=== PATIENT | male | born 1950 | race Two or more races ===

== ENCOUNTER 2018-12-27 10:31 | Emergency (ER) | payer MEDICARE, OTHER ==
[~2018-12-27] VITALS: Ht 167.6 cm; Wt 72.6 kg
--- NOTE | 2018-12-27 10:36 | NUR ---
CAME IN FOR NOT ABLE TO URINATE SINCE SATURDAY, DIALYSIS PATIENT EVERY SAT/HARPER/SAT. NOTED W HILARIO AV SHUNT. TO ER BED 9, HOOKED TO MONITOR, CHANGED TO GOWN, PROVIDED W WARM BLANKET, AWAITING MD GARCIA
--- NOTE | 2018-12-27 10:48 | NUR ---
DIALYSIS PT. (T,TH,S)
--- NOTE | 2018-12-27 10:50 | NUR ---
DR MENSAH AT BEDSIDE
[2018-12-27] MEDS ORDERED: LIDOCAINE 2% JEL UROJET 10 ML MM ONE ×2 (11:00→11:04)
[2018-12-27 11:17] LABS: HEMOGLOBIN 13.6 g/dL (13.5-17.5)
[2018-12-27 11:22] LABS: BASOPHILS # (AUTO) 0.1 /CMM (0.0-0.2); BASOPHILS % (AUTO) 0.7 % (0.0-2.0); EOSINOPHILS % (AUTO) 1.1 % (0.0-6.0); HEMATOCRIT 40 % (39-51); LYMPHOCYTES # (AUTO) 2.5 /CMM (0.8-4.8); LYMPHOCYTES % (AUTO) 17.3 % (20.0-44.0); MEAN CORPUSCULAR HGB CONC 34 g/dl (31.0-36.0); MEAN CORPUSCULAR VOLUME 93 fL (80-96); MONOCYTES # (AUTO) 1.4 /CMM (0.1-1.30); MONOCYTES % (AUTO) 9.8 % (2.0-12.0); NEUTROPHILS # (AUTO) 10.2 /CMM (1.8-8.9); NEUTROPHILS % (AUTO) 71.1 % (43.0-81.0); PLATELET COUNT (AUTO) 172 /CMM (150-450); RED BLOOD CELL COUNT(AUTO) 4.36 MIL/uL (4.5-6.0); WHITE BLOOD COUNT (AUTO) 14.4 K/uL (4.3-11.0)
[2018-12-27 11:24] LABS: CALCIUM, SERUM 8.8 mg/dL (8.5-10.1); POTASSIUM 3.6 mmol/L (3.5-5.1)
[2018-12-27 11:25] LABS: CREATININE 7.1 mg/dL (0.6-1.3)
[2018-12-27] MEDS ORDERED: DILTIAZEM HCL 25 MG IV IVP ONE (11:30)
[2018-12-27] MEDS ORDERED: Magnesium 1GM/D5W 100ML PREMIX 100 ML IV ONE ×2 (11:31→11:47)
[2018-12-27] MEDS ORDERED: DILTIAZEM HCL 25 MG IV ONE (11:31)
[2018-12-27] MEDS: Magnesium 1GM/D5W 100ML PREMIX 100 ML IV SCH ×2 (11:36→12:36)
--- NOTE | 2018-12-27 11:36 | NUR ---
16FR cai catheter inserted per sterile protocal. Immediate output 300ML of urine, color yellow, clear, made aware
[2018-12-27 11:54] LABS: APPEARANCE,URINE Clear (CLEAR); BILIRUBIN,URINE Negative (NEGATIVE); BLOOD, URINE Moderate Ery/uL (NEGATIVE); COLOR,URINE Yellow (YELLOW); KETONES,URINE Negative (NEGATIVE); LEUKOCYTE ESTERASE ,URINE Negative (NEGATIVE); NITRITE, URINE Negative (NEGATIVE); PH,URINE 6.5 (5.0-8.0); PROTEIN,URINE >=300 mg/dl (NEGATIVE); UGLUCOSE 250 MG/DL mg/dL (NEGATIVE); UROBILINOGEN,URINE 0.2 EU/dL (0.2)
[2018-12-27 12:03] LABS: RBC,URINE 21-50 /HPF (0-2)
[2018-12-27 12:04] LABS: BACTERIA,URINE Moderate /HPF (None Seen); SQUAMOUS EPITHELIAL CELL,UR Few /HPF (None Seen); WBC,URINE 0-2 /HPF (0-3)
[2018-12-27] MEDS ORDERED: MAG HYDROX/AL HYDROX/SIMETH 30 ML UDC ONE (12:07)
[2018-12-27] MEDS ORDERED: LIDOCAINE VISCOUS 2% UD 15 ML UDC ONE (12:07)
[2018-12-27] MEDS ORDERED: FAMOTIDINE/PF INJ 20 MG/2 ML VIAL IV ONE ×2 (12:12→12:30)
--- NOTE | 2018-12-27 12:14 | NUR ---
SPOKE WITH NIECE HONG AND CONFIRMED PATIENT HAS AN EXISTING CONDITION OF A. FIB AND HE'S CURRENTLY ON BLOOD THINNER.
[2018-12-27] MEDS ORDERED: LIDOCAINE VISCOUS 2% UD 15 ML UDC MM ONE (12:30)
[2018-12-27] MEDS ORDERED: MAG HYDROX/AL HYDROX/SIMETH 30 ML UDC PO ONE (12:30)
[2018-12-27 13:56] VITALS: BP 125/72
--- NOTE | 2018-12-27 13:56 | NUR ---
IV removed. Catheter intact and site benign. Pressure and 4x4 applied to site. No bleeding noted.Patient discharged to home in stable condition. Written and verbal after care instructions given. Patient verbalizes understanding of instruction.
== END 2018-12-27 13:57 | disposition home or self-care (01) ==
LOC: ER 10:40
DX: R33.9 Retention of urine, unspecified (principal); I48.91 Unspecified atrial fibrillation; K21.9 Gastro-esophageal reflux disease without esophagitis; I12.0 Hypertensive chronic kidney disease with stage 5 chronic kidney disease or end stage renal disease; E11.22 Type 2 diabetes mellitus with diabetic chronic kidney disease; N18.6 End stage renal disease; Z99.2 Dependence on renal dialysis
CPT/HCPCS: 36415; 51702; 80048; 81001; 84484; 85025; 87086; 93005; 96365; 96366; 96375; 99284; J3475 ×2; J3490 ×3; 81000-TC

== ENCOUNTER 2018-12-29 14:09 | Emergency (ER) | payer MEDICARE, OTHER ==
[~2018-12-29] VITALS: Ht 177.8 cm; Wt 78.9 kg
--- NOTE | 2018-12-29 14:20 | NUR ---
Pt presented to the ER wanting his cai catheter removed. Pt stated that he had a cath inserted a week ago for urinary retention, but wants to have it removed. Pt ambulated to ER 14 with a steady gait.
[2018-12-29 14:21] VITALS: BP 113/85
--- NOTE | 2018-12-29 14:41 | NUR ---
leg bag removed from the catheter. cai dripping into the sample cup.
--- NOTE | 2018-12-29 14:46 | NUR ---
catheter removed and approx 5ml yellow urine output noted. 2 sm clots noted in urine.
[2018-12-29 15:14] LABS: APPEARANCE,URINE Cloudy (CLEAR); BILIRUBIN,URINE SMALL (NEGATIVE); BLOOD, URINE Large Ery/uL (NEGATIVE); COLOR,URINE Pink (YELLOW); KETONES,URINE Negative (NEGATIVE); LEUKOCYTE ESTERASE ,URINE Small (NEGATIVE); NITRITE, URINE Negative (NEGATIVE); PH,URINE 5.5 (5.0-8.0); PROTEIN,URINE >=300 mg/dl (NEGATIVE); UGLUCOSE 100 MG/DL mg/dL (NEGATIVE); UROBILINOGEN,URINE 0.2 EU/dL (0.2)
--- NOTE | 2018-12-29 15:19 | NUR ---
Pt left prior to urinalysis to go to 's appointment with Dr. Verma (Diesel Locomotive Engineer) aware Pt instructed to follow up with PMD and to call for urinalysis results
--- NOTE | 2018-12-29 15:21 | NUR ---
Verbal after care instructions given, pt left without ACI instruction
[2018-12-29 15:22] LABS: BACTERIA,URINE Few /HPF (None Seen); RBC,URINE 21-50 /HPF (0-2); SQUAMOUS EPITHELIAL CELL,UR Few /HPF (None Seen); URINE AMORPHOUS URATE Few /HPF (None Seen)
== END 2018-12-29 15:23 | disposition home or self-care (01) ==
LOC: ER 14:13
DX: Z46.6 Encounter for fitting and adjustment of urinary device (principal); R31.9 Hematuria, unspecified; E11.22 Type 2 diabetes mellitus with diabetic chronic kidney disease; I12.0 Hypertensive chronic kidney disease with stage 5 chronic kidney disease or end stage renal disease; N18.6 End stage renal disease; Z99.2 Dependence on renal dialysis; Z60.2 Problems related to living alone; Z85.118 Personal history of other malignant neoplasm of bronchus and lung
CPT/HCPCS: 81000-TC

== ENCOUNTER 2019-05-09 12:02 | Inpatient (IN) | payer OTHER ==
[~2019-05-09] VITALS: Ht 172.7 cm; Wt 65.3 kg
--- NOTE | 2019-05-09 12:15 | NUR ---
Pt came into the ed c/o Palpitations "was sent here for evaluation of high HR". Upon assessment, HR was @ 112. Pt AAOX4, breathing even and unalbored on room air w/ nad. Pt connected tothe monitor
[2019-05-09] MEDS ORDERED: CARVEDILOL 6.25 MG TABLET ONE (12:54)
--- NOTE | 2019-05-09 12:54 | NUR ---
XRAY AT BEDSIDE
[2019-05-09 12:59] LABS: BASOPHILS # (AUTO) 0.1 /CMM (0.0-0.2); BASOPHILS % (AUTO) 0.9 % (0.0-2.0); EOSINOPHILS % (AUTO) 2.4 % (0.0-6.0); HEMATOCRIT 40 % (39-51); LYMPHOCYTES # (AUTO) 2.7 /CMM (0.8-4.8); LYMPHOCYTES % (AUTO) 26.2 % (20.0-44.0); MEAN CORPUSCULAR HGB CONC 32 g/dl (31.0-36.0); MEAN CORPUSCULAR VOLUME 86 fL (80-96); MONOCYTES # (AUTO) 1.2 /CMM (0.1-1.30); MONOCYTES % (AUTO) 11.9 % (2.0-12.0); NEUTROPHILS % (AUTO) 58.6 % (43.0-81.0); PLATELET COUNT (AUTO) 247 /CMM (150-450); RED BLOOD CELL COUNT(AUTO) 4.68 MIL/uL (4.5-6.0); WHITE BLOOD COUNT (AUTO) 10.3 K/uL (4.3-11.0)
[2019-05-09] MEDS ORDERED: CARVEDILOL 6.25 MG TABLET PO ONE (13:00)
[2019-05-09 13:13] LABS: CALCIUM, SERUM 9.3 mg/dL (8.5-10.1); CREATININE 6.1 mg/dL (0.6-1.3); POTASSIUM 4.1 mmol/L (3.5-5.1)
[2019-05-09] MEDS ORDERED: DILTIAZEM HCL 25 MG IV ONE (13:53)
[2019-05-09] MEDS ORDERED: DILTIAZEM HCL 50 MG IV IV ONE (14:00)
--- NOTE | 2019-05-09 14:19 | NUR ---
PAGED DR MEDINA FOR CONSULT
[2019-05-09] MEDS ORDERED: HYDR-3974 PO (15:56)
[2019-05-09] MEDS ORDERED: IPRA0.2S49 IH (15:56)
[2019-05-09] MEDS ORDERED: VIT1TABL46 PO (15:56)
[2019-05-09] MEDS ORDERED: ISOS10TA2 PO (15:56)
[2019-05-09] MEDS ORDERED: ALBU2.5V13 IH (15:56)
[2019-05-09] MEDS ORDERED: ATOR20TA PO (15:56)
[2019-05-09] MEDS ORDERED: HYDR-4076 PO (15:56)
[2019-05-09] MEDS ORDERED: POLY17PO4 PO (15:56)
[2019-05-09] MEDS ORDERED: MAGN400O6 PO (15:56)
[2019-05-09] MEDS ORDERED: BISA10SU61 RC (15:56)
[2019-05-09] MEDS ORDERED: FERR325T23 PO (15:56)
[2019-05-09] MEDS ORDERED: ISOS40TA12 PO (15:56)
[2019-05-09] MEDS ORDERED: CARV25TA2 PO (15:56)
[2019-05-09] MEDS ORDERED: APIX2.5T PO ×2 (15:56)
[2019-05-09] MEDS ORDERED: PANT40TA4 PO (15:56)
[2019-05-09] MEDS ORDERED: SEVE800T8 PO (15:56)
[2019-05-09] MEDS ORDERED: SENN-175 PO (15:56)
[2019-05-09] MEDS ORDERED: DOCU-141 PO (15:56)
[2019-05-09] MEDS ORDERED: INSU100C4 (15:56)
[2019-05-09] MEDS ORDERED: NA P133E RC (15:56)
[2019-05-09] MEDS ORDERED: LEVO25TA7 PO (15:56)
[2019-05-09] MEDS ORDERED: NITR0.4T48 SL (15:56)
--- NOTE | 2019-05-09 16:06 | NUR ---
INFO GIVEN TO MIKEL SHANKAR
--- NOTE | 2019-05-09 16:15 | NUR ---
SALES PLANNING COORDINATOR ADMISSION PATIENT CAME FROM ER DUE TO ATRIAL FIBRILATION EPISODE AT DIALYSIS TREATMENT TODAY. PATIENT VITALS STABLE. ON MONITOR RHYTHM IS CONTROLLED AND NO CHEST PAIN OR PALPITATIONS VERBALIZED BY PATIENT. ALERT ORITNED AND GRENADIAN SPEAKING, RN HAD RESIDENTIAL SALES TO ASSESS PATIENT. NO WOUNDS PRESNET. ACCESS LFT SIDE FISTULA PRESENT. PATIENT STATED HE WAS UNABLE TO FINISH TREATMETN TODAY DUE TO CONDITION AND WAS REMOVED FROM TX AT CLINIC [facility]. MD AWARE OF SHORT DIALYSIS EPISODE, RN CONTACTED MD AND DIALYSIS CENTER TO SPECIFY WHEN AND IF THE PATIENT WILL BE DIALYSISING NEXT. PATIENT VERBALIZED NORMAL SCHEUDLE IS TUES THURS SAT. BUN CREATNINE ELEVATED AND MD AWARE. PATIENT EATING AND DRINKIING WELL. AMBULATE WITHOUT ASSIST.
[2019-05-09 17:13] VITALS: BP 125/74
[2019-05-09] MEDS ORDERED: ONDANSETRON HCL/PF 4 MG/2 ML VIAL IV PRN (17:30)
[2019-05-09] MEDS ORDERED: ACETAMINOPHEN 650 MG/20.3 ML UDC NG PRN (17:30)
[2019-05-09] MEDS: CARVEDILOL 12.5 MG TABLET PO SCH (17:52)
--- NOTE | 2019-05-09 18:29 | NUR ---
RN CLOSING NOTE PATIENT CAME FROM ER DUE TO ATRIAL FIBRILATION EPISODE AT DIALYSIS TREATMENT TODAY. PATIENT VITALS STABLE. ON MONITOR RHYTHM IS CONTROLLED AND NO CHEST PAIN OR PALPITATIONS VERBALIZED BY PATIENT. ALERT ORITNED AND KAZAKH SPEAKING, RN HAD DRYWALL APPLICATOR TO ASSESS PATIENT. NO WOUNDS PRESNET. ACCESS LFT SIDE FISTULA PRESENT. PATIENT STATED HE WAS UNABLE TO FINISH TREATMETN TODAY DUE TO CONDITION AND WAS REMOVED FROM TX AT [facility]IN[facility]. MD AWARE OF SHORT DIALYSIS EPISODE, RN CONTACTED MD AND DIALYSIS CENTER TO SPECIFY WHEN AND IF THE PATIENT WILL BE DIALYSISING NEXT. PATIENT VERBALIZED NORMAL SCHEUDLE IS TUES THURS SAT. BUN CREATNINE ELEVATED AND MD AWARE. PATIENT EATING AND DRINKIING WELL. AMBULATE WITHOUT ASSIST.
--- NOTE | 2019-05-09 18:37 | NUR ---
RN NOTE ELIQUIS STILL NOT AVAILABLE IN PATIENTS CASETTE. ENDORSE TO MOLD YARD WORKER.
[2019-05-09] MEDS: APIXABAN 2.5 MG TABLET PO SCH (18:56)
[2019-05-09] MEDS ORDERED: NA PHOS,M-B/NA PHOS,DI-BA 1 EA ENEMA RC PRN (19:00)
[2019-05-09] MEDS ORDERED: NITROGLYCERIN 0.4 MG/TAB BOTTLE SL PRN (19:00)
[2019-05-09] MEDS ORDERED: DEXTROSE 50%-WATER 50 ML DISP.SYRIN IV PRN ×2 (19:00)
[2019-05-09] MEDS ORDERED: HYDROCODONE/APAP 5/325MG 1 EACH TABLET PO PRN (19:00)
[2019-05-09] MEDS ORDERED: INSULIN ASPART/LISPRO 100 UNIT/ML CARTRIDGE SQ PRN (19:00)
[2019-05-09] MEDS ORDERED: MAGNESIUM HYDROXIDE 30 ML UDC PO PRN (19:00)
[2019-05-09] MEDS ORDERED: BISACODYL SUPP (10 MG) 10 MG/SUPP.RECT SUPP.RECT RC PRN (19:00)
[2019-05-09] MEDS ORDERED: POLYETHYLENE GLYCOL 3350 17 GM POWD.PACK PO PRN (19:00)
[2019-05-09] MEDS ORDERED: IPRATROPIUM NEB FS 0.5 MG/2.5 ML AMPUL.NEB IH PRN (19:00)
[2019-05-09] MEDS ORDERED: ALBUTEROL FS 2.5 MG/0.5 ML VIAL.NEB IH PRN (19:00)
[2019-05-09 20:00] VITALS: BP 117/64
[2019-05-09] MEDS: ATORVASTATIN 10 MG TABLET PO SCH (21:11)
[2019-05-09] MEDS: BLOOD SUGAR DIAGNOSTIC 1 EACH STRIP IN SCH (21:16)
[2019-05-09] MEDS: INSULIN REGULAR, HUMAN 100 UNIT/ML 3 ML VIAL SQ PRN (21:19)
[2019-05-09] MEDS ORDERED: BLOOD SUGAR DIAGNOSTIC 1 EACH STRIP IN SCH (22:00)
[2019-05-10] VITALS: BP 124/62
[2019-05-10 04:00] VITALS: BP 128/63
--- NOTE | 2019-05-10 06:10 | NUR ---
TELE: NO SIGNIFICANT JUSTIN. PT RECEIVED AND REMAINED IN SINUS RHYTHM THROUGHOUT THE SHIFT. VS WITHIN HIS BASELINE. NO ACUTE DISTRESS, NO C/O PAIN. SAFETY PRECAUTION NOTED AT ALL TIMES.
[2019-05-10 06:22] LABS: BASOPHILS # (AUTO) 0.1 /CMM (0.0-0.2); BASOPHILS % (AUTO) 0.5 % (0.0-2.0); EOSINOPHILS % (AUTO) 1.8 % (0.0-6.0); HEMATOCRIT 37 % (39-51); LYMPHOCYTES # (AUTO) 2.3 /CMM (0.8-4.8); LYMPHOCYTES % (AUTO) 24.6 % (20.0-44.0); MEAN CORPUSCULAR HGB CONC 32 g/dl (31.0-36.0); MEAN CORPUSCULAR VOLUME 86 fL (80-96); MONOCYTES % (AUTO) 10.3 % (2.0-12.0); NEUTROPHILS % (AUTO) 62.8 % (43.0-81.0); PLATELET COUNT (AUTO) 217 /CMM (150-450); RED BLOOD CELL COUNT(AUTO) 4.35 MIL/uL (4.5-6.0); WHITE BLOOD COUNT (AUTO) 9.5 K/uL (4.3-11.0)
[2019-05-10 06:32] LABS: CALCIUM, SERUM 8.6 mg/dL (8.5-10.1); MAGNESIUM 2.3 mg/dL (1.8-2.4); PHOSPHORUS 4.7 mg/dL (2.5-4.9); POTASSIUM 3.7 mmol/L (3.5-5.1)
[2019-05-10 06:38] LABS: CREATININE 7.5 mg/dL (0.6-1.3)
[2019-05-10 06:40] LABS: THYROID STIMULATING HORMONE 2.737 uIU/mL (0.358-3.74)
[2019-05-10] MEDS ORDERED: LEVOTHYROXINE SODIUM 25 MCG TABLET PO SCH (07:30)
--- NOTE | 2019-05-10 07:30 | NUR ---
SOFTWARE EDUCATOR NOTES AM PATIENT RECIVED BY PM SHIFT. PATIENT IS ASLEEP BUT EASILY AROUSED. PATIENT A/O X4 PATIENT IS NORMAL SINUS RHYTHM PATIENT HAS A RIGHT AV FISTULA AND RIGHT WRIST 20 BOTH PATENT, INTACT, SITES ARE CLEAN AND DRY WITH NO SIGNS OF INFECTION . WILL CONTINUE TO MONITOR PATIENT. BED IN LOWEST POSITION, SAFETY MAINTAINED AND CALL LIGHT WITH IN REACH
[2019-05-10 08:00] VITALS: BP 137/76
[2019-05-10] MEDS: BLOOD SUGAR DIAGNOSTIC 1 EACH STRIP IN SCH ×4 (08:58→22:00)
[2019-05-10] MEDS: DOCUSATE SODIUM 100 MG CAPSULE PO SCH ×2 (08:59→17:00)
[2019-05-10] MEDS: PANTOPRAZOLE 40 MG TABLET.DR PO SCH ×2 (08:59→18:16)
[2019-05-10] MEDS: SEVELAMER CARBONATE 800 MG TABLET PO SCH ×3 (08:59→18:23)
[2019-05-10] MEDS ORDERED: VIT B CMPLX 3/FA/VIT C/BIOTIN 1 TAB TABLET PO SCH (09:00)
[2019-05-10] MEDS ORDERED: SENNOSIDES 8.6 MG TABLET PO SCH (09:00)
[2019-05-10] MEDS: ISOSORBIDE DINITRATE (10MG) 10 MG TABLET PO SCH ×3 (09:00→18:20)
[2019-05-10] MEDS ORDERED: FERROUS SULFATE (325 MG) 325 MG/TAB TABLET PO SCH (09:00)
[2019-05-10] MEDS: INSULIN REGULAR, HUMAN 100 UNIT/ML 3 ML VIAL SQ PRN ×3 (09:08→17:41)
[2019-05-10] MEDS: APIXABAN 2.5 MG TABLET PO SCH ×2 (09:09→18:19)
[2019-05-10] MEDS: hydrALAZINE HCL 25 MG TABLET PO SCH ×3 (11:23→18:19)
[2019-05-10 12:00] VITALS: BP 133/57
[2019-05-10] MEDS: DRONEDARONE HYDROCHLORIDE 400 MG TABLET PO SCH ×2 (12:53→18:23)
[2019-05-10] MEDS: CARVEDILOL 12.5 MG TABLET PO SCH ×2 (12:55→18:33)
[2019-05-10 16:00] VITALS: BP 129/64
--- NOTE | 2019-05-10 17:00 | NUR ---
RN NOTES TELE PATIENT CURRENTLY BEING DIALYZED BY DIALYSIS NURSE.
--- NOTE | 2019-05-10 18:49 | NUR ---
TRUCK LOADER OVERHEAD CRANE CLOSING NOTE PATIENT IN BED WITH NO SIGNS OF ANY DISTRESS. NO SIGNS OF PALPITATION. PATIENT IS TOLERATING WELL WITH MEDICATION MANAGEMENT. ALL SAFETY PRECAUTIONS APPLIED ENDORSED PATIENT TO PM SHIFT Addendum: 05/10/19 at 1859 by SHANAE GOSS RN PATIENT FINISHED HD 2000ML OUT PATIENT BP 131/60
[2019-05-10 20:00] VITALS: BP 90/47
[2019-05-10] MEDS: ATORVASTATIN 10 MG TABLET PO SCH (22:00)
--- NOTE | 2019-05-10 23:51 | NUR ---
RN NOTES RECEIVED PATIENT IN BED IN A SITTING POSITION EATING WITHOUT ANY DISTRESS OR SHORTNESS OF BREATH. BREATHING EVEN AND UNLABORED. ON ROOM AIR TOLERATING WELL. ALERT AND ORIENTED. VERBALLY ABLE TO COMMUNICATE NEEDS. TAJIK SPEAKING. NO COMPLAINT OF PAIN OR DISCOMFORT. NEEDS ATTENDED. KEPT CLEAN AND DRY. PICKED UP BY LIFT TRANSPO AT 2315. VITAL SIGNS WNL. DISCHARGE DOCUMENT GIVEN TO PATIENT. PATIENT IN STABLE CONDITION. BROUGHT TO EMERGENCY DOOR EXIT. AND SEEN TO RIDE THE VEHICLE.
== END 2019-05-10 23:14 | DRG 308 ==
LOC: ER 12:03 → TELE1 16:21
PROVIDERS: ADMIT Nurse Practitioner Acute Care; ATTEND Internal Medicine Nephrology
DX: I48.20 Chronic atrial fibrillation, unspecified (principal); N18.6 End stage renal disease; I50.33 Acute on chronic diastolic (congestive) heart failure; I13.2 Hypertensive heart and chronic kidney disease with heart failure and with stage 5 chronic kidney disease, or end stage renal disease; D68.59 Other primary thrombophilia; C91.10 Chronic lymphocytic leukemia of B-cell type not having achieved remission; E11.22 Type 2 diabetes mellitus with diabetic chronic kidney disease; D63.8 Anemia in other chronic diseases classified elsewhere; E78.5 Hyperlipidemia, unspecified; Z99.2 Dependence on renal dialysis; Z90.2 Acquired absence of lung [part of]; Z87.891 Personal history of nicotine dependence; Z79.01 Long term (current) use of anticoagulants; M85.80 Other specified disorders of bone density and structure, unspecified site; G47.00 Insomnia, unspecified; F41.9 Anxiety disorder, unspecified; F32.9 Major depressive disorder, single episode, unspecified; Z79.4 Long term (current) use of insulin; Z79.51 Long term (current) use of inhaled steroids; Z79.899 Other long term (current) drug therapy
CPT/HCPCS: 36415; 71045-TC; 80048-TC; 82962-TC; 83735-TC; 83880; 84100-TC; 84443-TC; 84484-TC; 85025-TC; 87081-TC; 93307-TC; G0378; J1815; J3490

== ENCOUNTER 2021-04-24 17:49 | Inpatient (IN) | payer OTHER ==
[~2021-04-24] VITALS: Ht 172.7 cm; Wt 65.8 kg
[~2021-04-24 17:49] MED LIST: ALBU2.5V13 IH; APIX2.5T PO; ATOR20TA PO; BISA10SU61 RC; CARV25TA2 PO; DOCU-141 PO; FERR325T23 PO; HYDR-3974 PO; HYDR-4076 PO; INSU100C4; IPRA0.2S49 IH; ISOS10TA2 PO; ISOS40TA12 PO; LEVO25TA7 PO; MAGN400O6 PO; NA P133E RC; NITR0.4T48 SL; PANT40TA49 PO; POLY17PO4 PO; SENN-175 PO; SEVE800T8 PO; VIT1TABL46 PO
--- NOTE | 2021-04-24 18:00 | NUR ---
JASIEL RA 60 FROM [facility]ARE FACILITY,C/O SOB SINCE 12 NOON,REFUSED TO GO TO DIALYSIS THIS MORNING. ALERT AND ORIENTED. ON 4LPM OXYGEN VIA NC. KEPT COMFORTABLE IN BED. SAFETY PRECAURIONS MAINTAINED
[2021-04-24] MEDS ORDERED: CALC667C6 PO (18:23)
[2021-04-24] MEDS ORDERED: LACT10SO3 PO (18:23)
[2021-04-24] MEDS ORDERED: CLOP75TA15 PO (18:23)
[2021-04-24] MEDS ORDERED: ZINC1CAP3 PO (18:23)
[2021-04-24] MEDS ORDERED: MULT-447 PO (18:23)
[2021-04-24] MEDS ORDERED: ASCO-352 PO (18:23)
[2021-04-24] MEDS ORDERED: ACET-868 PO (18:23)
[2021-04-24] MEDS ORDERED: GLIP5TAB13 PO (18:23)
[2021-04-24] MEDS ORDERED: AMIN30LI2 PO (18:23)
[2021-04-24] MEDS ORDERED: ACET-2605 PO (18:23)
[2021-04-24 18:24] LABS: BASOPHILS # (AUTO) 0.1 K/uL (0.0-0.2); BASOPHILS % (AUTO) 0.7 % (0.0-2.0); EOSINOPHILS % (AUTO) 3.9 % (0.0-6.0); HEMATOCRIT 28 % (39-51); HEMOGLOBIN 9.1 g/dL (13.5-17.5); LYMPHOCYTES # (AUTO) 2.7 K/uL (0.8-4.8); LYMPHOCYTES % (AUTO) 21.5 % (20.0-44.0); MEAN CORPUSCULAR HGB CONC 32 g/dl (31.0-36.0); MEAN CORPUSCULAR VOLUME 91 fL (80-96); MONOCYTES # (AUTO) 1.2 K/uL (0.1-1.30); MONOCYTES % (AUTO) 9.7 % (2.0-12.0); NEUTROPHILS # (AUTO) 8.1 K/uL (1.8-8.9); NEUTROPHILS % (AUTO) 64.2 % (43.0-81.0); PLATELET COUNT (AUTO) 277 K/uL (150-450); RED BLOOD CELL COUNT(AUTO) 3.09 MIL/uL (4.5-6.0); WHITE BLOOD COUNT (AUTO) 12.6 K/uL (4.3-11.0)
[2021-04-24] MEDS ORDERED: ONDANSETRON HCL/PF 4 MG/2 ML VIAL IVP ONE (18:30)
[2021-04-24] MEDS ORDERED: MORPHINE SULFATE INJ 2 MG/ML DISP.SYRIN IV ONE (18:30)
[2021-04-24] MEDS ORDERED: NITROGLYCERIN PACKET 1 GM PACKET TD ONE (18:30)
--- NOTE | 2021-04-24 18:36 | NUR ---
PIV INSERTED IN RAC G#20, GOOD BLOOD RETURN NOTED, INTACT, PATENT AND FLUSHING WELL.
[2021-04-24 18:38] LABS: CALCIUM, SERUM 9.7 mg/dL (8.5-10.1); CARBON DIOXIDE 21 mmol/L (21-32); CHLORIDE 97 mmol/L (98-107); GLUCOSE 80 mg/dL (74-106); POTASSIUM 5.4 mmol/L (3.5-5.1); SODIUM SERUM 139 mmol/L (136-145)
[2021-04-24 18:44] LABS: CREATININE 14.3 mg/dL (0.6-1.3); UREA NITROGEN, BLOOD 129 mg/dL (7-18)
[2021-04-24 18:46] LABS: ALANINE AMINOTRANSFERASE 18 U/L (12-78); ALBUMIN 2.8 g/dL (3.4-5.0); ALKALINE PHOSPHATASE 112 U/L (46-116); ASPARTATE AMINOTRANSFERASE 13 U/L (15-37); BILIRUBIN,DIRECT 0.2 mg/dL (0.0-0.2); BILIRUBIN,TOTAL 0.6 mg/dL (0.2-1.0); TOTAL PROTEIN, SERUM 8.5 g/dL (6.4-8.2)
[2021-04-24] MEDS ORDERED: MORPHINE SULFATE INJ 2 MG/ML DISP.SYRIN ONE (18:59)
[2021-04-24] MEDS ORDERED: ONDANSETRON HCL/PF 4 MG/2 ML VIAL ONE (18:59)
--- NOTE | 2021-04-24 19:00 | NUR ---
TOOK OVER PT CARE. PT AAOX4, MALIAN SPEAKING. ON MONITOR AND PULSE OX. NO ACUTE DISTRESS NOTED.
[2021-04-24] MEDS ORDERED: SODIUM BICARBONATE SYR 50 MEQ/50 ML DISP.SYRIN IV ONE (19:30)
[2021-04-24] MEDS ORDERED: DEXTROSE 50%-WATER 50 ML DISP.SYRIN IV ONE ×2 (19:30→20:00)
[2021-04-24] MEDS ORDERED: CALCIUM CHLORIDE 1,000 MG/10 ML DISP.SYRIN IV ONE (19:30)
[2021-04-24] MEDS ORDERED: INSULIN REGULAR, HUMAN 100 UNIT/ML 10 ML VIAL IV ONE (19:30)
[2021-04-24] MEDS ORDERED: CALCIUM CHLORIDE 1,000 MG/10 ML DISP.SYRIN ONE (19:49)
[2021-04-24] MEDS ORDERED: VANCOMYCIN 1 GM VIAL ONE (19:49)
[2021-04-24] MEDS ORDERED: SODIUM BICARBONATE SYR 50 MEQ/50 ML DISP.SYRIN ONE (19:49)
[2021-04-24] MEDS ORDERED: GENTAMICIN 80 MG/2 ML VIAL ONE (19:49)
[2021-04-24] MEDS ORDERED: DEXTROSE 50%-WATER 50 ML DISP.SYRIN ONE ×2 (19:50→19:58)
[2021-04-24] MEDS ORDERED: INSULIN REGULAR, HUMAN 100 UNIT/ML 10 ML VIAL ONE (19:50)
--- NOTE | 2021-04-24 19:51 | NUR ---
CONTACTED FACILITY PT CAME FROM TO REQUEST MEDICAL RECORDS VIA FAX. AWAITING FAX NOW.
[2021-04-24] MEDS ORDERED: GENTAMICIN 80 MG in IV D5W 50 ML IV ONE (20:00)
[2021-04-24] MEDS ORDERED: VANCOMYCIN 1 GM in IV D5W 250 ML IV ONE (20:00)
[2021-04-24] MEDS ORDERED: ONDANSETRON HCL/PF 4 MG/2 ML VIAL IVP PRN (20:30)
[2021-04-24] MEDS ORDERED: ACETAMINOPHEN 325 MG TABLET PO PRN (20:30)
--- NOTE | 2021-04-24 22:34 | NUR ---
REPORT GIVEN TO JANET SHANKAR FOR JUSTIN
--- NOTE | 2021-04-24 23:03 | NUR ---
PT TRANSFERED PER ACLS PROTOCOL
[2021-04-24 23:15] VITALS: BP 145/85
--- NOTE | 2021-04-24 23:15 | NUR ---
METAL TESTER NOTES, RECEIVED 71 YEAR OLD MALE ADMITTED FROM ER DEPARTMENT VIA STRETCHER ACCOMPANIED BY 2 NURSES, UNDER MEDICAL SERVICES OF JOHN NAQVI NP, WITH ADMITTING DX HYPERKALEMIA, PATIENT A/O X4 BULGARIAN SPEAKING ABLE TO VERBALIZE NEEDS AND CONCERNS, AT ROOM AIR, BREATHING EVEN AND UNLABORED, NO SOB/S/S OF ANY ACUTE DISTRESS, ATTACHED TELE AND SHOWS NSR WITH HR IN 80S, PATIENT WITH HX OF ESRD WITH , HE MISSED HD TODAY, ACCORDING TO REPORT RE REFUSED HD THIS MORNING, PATIENT WITH HILARIO FISTULA, INTACT, PIV SITE IN RIGHT AC 20G, PATENT AND INTACT, AFEBRILE, NOTED WITH RIGHT UPPER QUADRANT UNCLEAR IF IS UROSTOMY, NOTED MINIMAL YELLOW CLEAR DRAINAGE IN THE BAG, PER PATIENT HE HAD A SURGERY ION 1998, AND THEY SUPPOSED TO REMOVED AUGUST 2019, AND DUE TO COVID THEY DID NOT REMOVED IT, HE STATED HE AMBULATES AND USES BATHROOM, SKIN INTACT, WILL HAVE HD TODAY, AND NEPRO CONSULT IN AM, , BED LOCKED AND IN LOWEST POSITION, BED S/R 2X UP, CALL LIGHT W/I REACH, WILL CONTINUE TO MONITOR CLOSELY.
[2021-04-25] MEDS: HEPARIN SODIUM, PORCINE 5000 UNITS/1 ML VIAL SQ SCH ×2 (00:46→08:42)
--- NOTE | 2021-04-25 01:25 | NUR ---
RN NOTES, PATIENT STARTED HD AT THIS TIME, PATIENT TOLERATED WELL.
--- NOTE | 2021-04-25 03:22 | NUR ---
RN NOTES, PATIENT CONTINUE ON HEMODIALYSIS TOLERATED WELL, VITAL SIGNS STABLE.
--- NOTE | 2021-04-25 03:25 | NUR ---
RN NOTES, DONE WITH HD AT THIS TIME, 2L OUT, PATIENT TOLERATED WELL, LAST VITALS SIGNS 121/67, 74, 16, 97.6, WILL CONTINUE TO MONITOR CLOSELY.
[2021-04-25 04:00] VITALS: BP 101/50
[2021-04-25] MEDS ORDERED: BISACODYL SUPP (10 MG) 10 MG/SUPP.RECT SUPP.RECT RC PRN (06:00)
[2021-04-25] MEDS ORDERED: LEVOFLOXACIN 500 MG /D5W 100ML 500 MG in PREMIX 1 EA IV SCH (06:30)
--- NOTE | 2021-04-25 06:50 | NUR ---
RN NOTES, PATIENT AWAKE AT THIS TIME A/O X4, AT RA, NO SOB/ACUTE DISTRESS NOTED, S/P HD DONE AT 0325 2L OUT, NSR IN TELE MONITOR WITH HR 80S AT THIS TIME, WILL ENDORSE CONTINUITY OF CARE TO ONCOMING NURSE.
[2021-04-25] MEDS ORDERED: LEVOFLOXACIN 500 MG /D5W 100ML 100 ML IV ONE (07:00)
[2021-04-25 07:37] LABS: BASOPHILS % (AUTO) 0.5 % (0.0-2.0); EOSINOPHILS % (AUTO) 1.9 % (0.0-6.0); HEMATOCRIT 27 % (39-51); HEMOGLOBIN 8.9 g/dL (13.5-17.5); LYMPHOCYTES # (AUTO) 1.2 K/uL (0.8-4.8); LYMPHOCYTES % (AUTO) 13.5 % (20.0-44.0); MEAN CORPUSCULAR HGB CONC 33 g/dl (31.0-36.0); MEAN CORPUSCULAR VOLUME 89 fL (80-96); MONOCYTES # (AUTO) 0.8 K/uL (0.1-1.30); MONOCYTES % (AUTO) 8.4 % (2.0-12.0); NEUTROPHILS % (AUTO) 75.7 % (43.0-81.0); PLATELET COUNT (AUTO) 259 K/uL (150-450); WHITE BLOOD COUNT (AUTO) 9.2 K/uL (4.3-11.0)
[2021-04-25 07:53] LABS: CALCIUM, SERUM 9.2 mg/dL (8.5-10.1); PHOSPHORUS 3.5 mg/dL (2.5-4.9); POTASSIUM 4.1 mmol/L (3.5-5.1)
--- NOTE | 2021-04-25 08:00 | NUR ---
FOREST WORKER NOTE PATIENT IN BED , ALL NEEDS ATTENDEE , ON RA NO SOB NOTED AT THIS TIME, ON TELE MONITOR SR , HILARIO FISTULA AV WITH BRUIT SOUND, RT AC HL INTACT CALL LIGHT WITHIN REACH , BED IN LOWEST AND LOCKED POSITION WILL GINAR
[2021-04-25 08:03] LABS: CREATININE 9.2 mg/dL (0.6-1.3)
[2021-04-25] MEDS: SEVELAMER CARBONATE 800 MG TABLET PO SCH ×3 (08:39→17:42)
[2021-04-25] MEDS: ASCORBIC ACID 500 MG TABLET PO SCH (08:40)
[2021-04-25] MEDS: VIT B CMPLX 3/FA/VIT C/BIOTIN 1 TAB TABLET PO SCH (08:40)
[2021-04-25] MEDS: ZINC SULFATE 220 MG CAPSULE PO SCH (08:40)
[2021-04-25] MEDS: CALCIUM ACETATE 667 MG CAP/TAB PO SCH ×3 (08:40→17:42)
[2021-04-25] MEDS: ISOSORBIDE DINITRATE (10MG) 10 MG TABLET PO SCH ×3 (08:41→16:58)
[2021-04-25] MEDS: MULTIVIT W/MINERALS 1 TAB TABLET PO SCH (08:41)
[2021-04-25] MEDS: PROSOURCE / PROSTAT (PYXIS) 30 ML UDC PO SCH (08:41)
[2021-04-25] MEDS: glipiZIDE 5 MG TABLET PO SCH ×2 (08:41→16:57)
[2021-04-25] MEDS: CARVEDILOL 12.5 MG TABLET PO SCH ×2 (08:42→16:58)
[2021-04-25] MEDS: LEVOTHYROXINE SODIUM 25 MCG TABLET PO SCH (08:44)
[2021-04-25] MEDS: PANTOPRAZOLE 40 MG TABLET.DR PO SCH (08:44)
--- NOTE | 2021-04-25 11:43 | NUR ---
SUPERVISOR SEWING DEPARTMENT NOTE REPORTED TO KEVYN RN DNP PATIENT DN NO SLIDING SCALE STATED THAT WILL CHECK IT OUT
--- NOTE | 2021-04-25 11:54 | NUR ---
ANTIQUE AUTO MUSEUM MAINTENANCE WORKER NOTE PER RT OK TO PLACE SIMPLE MASK 8L SATURATION 95%
[2021-04-25 12:00] VITALS: BP 139/70
[2021-04-25] MEDS: CLOPIDOGREL BISULFATE 75 MG TABLET PO SCH (12:44)
--- NOTE | 2021-04-25 13:37 | NUR ---
EXPORT FREIGHT MANAGER NOTE ASSISTED TO BR ABLE TO MAKE BM, KEEP CLEAN DRY
[2021-04-25] MEDS ORDERED: DEXTROSE 50%-WATER 50 ML DISP.SYRIN IV PRN (14:30)
[2021-04-25] MEDS: CEFTRIAXONE 1 G in IV D5W 50 ML IV SCH (14:38)
[2021-04-25] MEDS: METRONIDAZOLE 500MG/ NS 100ML 500 MG in PREMIX 1 EA IV SCH ×2 (15:16→23:26)
[2021-04-25 16:00] VITALS: BP 132/66
--- NOTE | 2021-04-25 16:18 | NUR ---
television script writer note hl rt hand gage20 inserted with good blood return
[2021-04-25] MEDS: APIXABAN 2.5 MG TABLET PO SCH (16:59)
[2021-04-25] MEDS: INSULIN REGULAR, HUMAN 100 UNIT/ML 3 ML VIAL SQ PRN (17:39)
[2021-04-25] MEDS: BLOOD SUGAR DIAGNOSTIC 1 EACH STRIP IN SCH ×2 (17:40→21:18)
--- NOTE | 2021-04-25 17:45 | NUR ---
radiotelegraph operator servicer note seen by dr lares director of premium seat sales updated patient condition will cont to monitor
[2021-04-25] MEDS ORDERED: EPOETIN ALFA (4000 UNIT) 4,000 UNIT/ML VIAL IV SCH (18:30)
[2021-04-25] MEDS ORDERED: EPOETIN ALFA-EPBX 4,000 UNIT/ML VIAL IV PRN (18:30)
--- NOTE | 2021-04-25 19:20 | NUR ---
INJECTION MOLDER NOTE ROUND MADE ,RESTING COMFORTABLY , STILL REFUSING TO HAVE DINNER , ALL NEEDS ATTENDED, WILL CONT TO MONITOR CLOSELY
--- NOTE | 2021-04-25 19:30 | NUR ---
RN NOTE RN NOTE RECEIVED RESIDENT IN BED, AWAKE, ALERT, AND VERBALLY RESPONSIVE. BREATHING EVEN AND UNLABORED. NO SOB NOTED. TOLERATING ROOM AIR. NO COUGH/N/V NOTED. SKIN WARM AND DRY. DENIES CONSTIPATION. PATIENT OFFERED MEAL BUT REFUSED. NOTED WITH LEFT UPPER ARM AV FISTULA, NO BLEEDING NOTED. DENIES PAIN AT SITE. NOTED WITH RIGHT HAND 20G AND RIGHT AC 20G. PATENT. NO INFILTRATION NOTED. NOTED WITH RIGHT UPPER ABDOMEN COLOSTOMY, NO BLEEDING NOTED. ALL NEEDS ATTENDED. CALL LIGHT WITHIN REACH.
[2021-04-25 20:00] VITALS: BP 111/64
[2021-04-25] MEDS: SENNOSIDES 8.6 MG TABLET PO SCH (21:12)
[2021-04-25] MEDS: ATORVASTATIN 40 MG TABLET PO SCH (21:12)
--- NOTE | 2021-04-25 21:22 | NUR ---
DECK STEWARD NOTE BS IS 105 AT THIS TIME.
--- NOTE | 2021-04-25 21:39 | NUR ---
2139 DRIVER SALES ROBIN MADE AWARE OF PT'S BS 105 WITH LANTUS 10 UNITS DOSE TONIGHT AND PATIENT REFUSING TO EAT. PER DRIVER SALES ROBIN HOLD LANTUS DOSE FOR TONIGHT. ORDER NOTED AND CARRIED OUT.
[2021-04-25] MEDS: INSULIN GLARGINE, 100 UNIT/ML CARTRIDGE SQ SCH (21:41)
[2021-04-26] VITALS (8 sets, daily range): BP systolic 110–145; BP diastolic 44–75
--- NOTE | 2021-04-26 07:43 | NUR ---
RN OPENING NOTES Patient was alert and oriented x 4, sitting up in bed when I arrived. IV's on standby upon arrival. Pt states no pain 0/10. Bed at lowest position, call light within reach. Will continue to monitor.
[2021-04-26] MEDS: PANTOPRAZOLE 40 MG TABLET.DR PO SCH (07:52)
[2021-04-26] MEDS: LEVOTHYROXINE SODIUM 25 MCG TABLET PO SCH (07:52)
[2021-04-26] MEDS: SEVELAMER CARBONATE 800 MG TABLET PO SCH ×3 (07:52→17:05)
[2021-04-26] MEDS: METRONIDAZOLE 500MG/ NS 100ML 500 MG in PREMIX 1 EA IV SCH ×3 (08:00→22:14)
[2021-04-26] MEDS: BLOOD SUGAR DIAGNOSTIC 1 EACH STRIP IN SCH ×4 (08:20→22:08)
[2021-04-26 08:23] LABS: CALCIUM, SERUM 8.4 mg/dL (8.5-10.1); POTASSIUM 5.1 mmol/L (3.5-5.1)
[2021-04-26 08:24] LABS: CREATININE 11.3 mg/dL (0.6-1.3)
[2021-04-26] MEDS: CARVEDILOL 12.5 MG TABLET PO SCH ×2 (09:05→17:02)
[2021-04-26] MEDS: MULTIVIT W/MINERALS 1 TAB TABLET PO SCH (09:05)
[2021-04-26] MEDS: VIT B CMPLX 3/FA/VIT C/BIOTIN 1 TAB TABLET PO SCH (09:06)
[2021-04-26] MEDS: ZINC SULFATE 220 MG CAPSULE PO SCH (09:06)
[2021-04-26] MEDS: glipiZIDE 5 MG TABLET PO SCH ×2 (09:07→17:15)
[2021-04-26] MEDS: ISOSORBIDE DINITRATE (10MG) 10 MG TABLET PO SCH ×3 (09:08→17:02)
[2021-04-26] MEDS: APIXABAN 2.5 MG TABLET PO SCH ×2 (09:14→17:13)
[2021-04-26] MEDS: ASCORBIC ACID 500 MG TABLET PO SCH (09:18)
[2021-04-26] MEDS: CALCIUM ACETATE 667 MG CAP/TAB PO SCH ×3 (09:38→17:05)
[2021-04-26] MEDS: PROSOURCE / PROSTAT (PYXIS) 30 ML UDC PO SCH (10:08)
[2021-04-26 11:28] LABS: BASOPHILS # (AUTO) 0.1 K/uL (0.0-0.2); BASOPHILS % (AUTO) 0.6 % (0.0-2.0); EOSINOPHILS % (AUTO) 1.9 % (0.0-6.0); HEMATOCRIT 25 % (39-51); HEMOGLOBIN 8.3 g/dL (13.5-17.5); LYMPHOCYTES # (AUTO) 1.6 K/uL (0.8-4.8); LYMPHOCYTES % (AUTO) 15.7 % (20.0-44.0); MEAN CORPUSCULAR HGB CONC 34 g/dl (31.0-36.0); MEAN CORPUSCULAR VOLUME 90 fL (80-96); MONOCYTES % (AUTO) 9.8 % (2.0-12.0); NEUTROPHILS # (AUTO) 7.3 K/uL (1.8-8.9); PLATELET COUNT (AUTO) 233 K/uL (150-450); RED BLOOD CELL COUNT(AUTO) 2.78 MIL/uL (4.5-6.0); WHITE BLOOD COUNT (AUTO) 10.1 K/uL (4.3-11.0)
[2021-04-26] MEDS: INSULIN REGULAR, HUMAN 100 UNIT/ML 3 ML VIAL SQ PRN ×2 (12:19→22:07)
[2021-04-26] MEDS: CLOPIDOGREL BISULFATE 75 MG TABLET PO SCH (12:44)
[2021-04-26] MEDS: CEFTRIAXONE 1 G in IV D5W 50 ML IV SCH (15:04)
[2021-04-26 18:21] LABS: BASOPHILS # (AUTO) 0.1 K/uL (0.0-0.2); BASOPHILS % (AUTO) 1.1 % (0.0-2.0); EOSINOPHILS % (AUTO) 3.4 % (0.0-6.0); HEMATOCRIT 21 % (39-51); LYMPHOCYTES # (AUTO) 1.6 K/uL (0.8-4.8); LYMPHOCYTES % (AUTO) 25.7 % (20.0-44.0); MEAN CORPUSCULAR HGB CONC 33 g/dl (31.0-36.0); MEAN CORPUSCULAR VOLUME 89 fL (80-96); MONOCYTES # (AUTO) 0.4 K/uL (0.1-1.30); MONOCYTES % (AUTO) 6.7 % (2.0-12.0); NEUTROPHILS # (AUTO) 3.9 K/uL (1.8-8.9); NEUTROPHILS % (AUTO) 63.1 % (43.0-81.0); PLATELET COUNT (AUTO) 225 K/uL (150-450); RED BLOOD CELL COUNT(AUTO) 2.36 MIL/uL (4.5-6.0); WHITE BLOOD COUNT (AUTO) 6.2 K/uL (4.3-11.0)
--- NOTE | 2021-04-26 18:28 | NUR ---
RN CLOSING NOTES PATIENT ALERT AND ORIENTED X4, CHILEAN SPEAKING ONLY. COOPERATIVE AND COMMUNICATIVE. PATIENT WAS ON BED REST FOR MOST OF THE DAY, BUT IS ABLE TO USE THE RESTROOM WITH MINIMAL ASSISTANCE. BED PLACED IN LOWEST POSITION, CALL LIGHT IN REACH.
[2021-04-26 18:38] LABS: CALCIUM, SERUM 8.4 mg/dL (8.5-10.1); PHOSPHORUS 4.2 mg/dL (2.5-4.9); POTASSIUM 4.3 mmol/L (3.5-5.1)
[2021-04-26 18:51] LABS: CREATININE 10.5 mg/dL (0.6-1.3)
--- NOTE | 2021-04-26 20:00 | NUR ---
ms rn notes Received pts in bed awake a/o x4 hemo dialysis on progress dialysis nurse at bedside . per endorsement pts is ambulatory , on r/a [id number]%no sob no distress noted v/s sftable afebrile no c/o of pain , at 2100hrs dialysis treatment completed 1200 ml fluids out noted .all due meds given as ordered , no sob no distress noted all needs attended too call light within reach , bed locked and in low position . with lef ua av fistula and right hand G22 intact and patent will continue to monitor pts.
[2021-04-26] MEDS: ATORVASTATIN 40 MG TABLET PO SCH (21:29)
[2021-04-26] MEDS: SENNOSIDES 8.6 MG TABLET PO SCH ×2 (21:30→22:00)
[2021-04-26] MEDS: INSULIN GLARGINE, 100 UNIT/ML CARTRIDGE SQ SCH (22:06)
--- NOTE | 2021-04-26 22:14 | NUR ---
ms rn notes Blood sugar at 10pm is 153 2 units of regular insulin given per sliding scale and lantus 10 units given as ordered.pts offer snack
[2021-04-27 04:00] VITALS: BP 122/60
[2021-04-27] MEDS: METRONIDAZOLE 500MG/ NS 100ML 500 MG in PREMIX 1 EA IV SCH ×3 (06:16→22:00)
--- NOTE | 2021-04-27 06:37 | NUR ---
ms rn notes Pts in bed a/o x4 faroese speaking ambulatory with assist , refused morning labs , on val av fistula for hd access .no bleeding noted , v/s stable afebrile. will endorse to rn day shift for continuity of care and to follow up labs
[2021-04-27 08:00] VITALS: BP 150/50
[2021-04-27] MEDS: SEVELAMER CARBONATE 800 MG TABLET PO SCH ×3 (08:07→17:15)
[2021-04-27] MEDS: LEVOTHYROXINE SODIUM 25 MCG TABLET PO SCH (08:07)
[2021-04-27] MEDS: BLOOD SUGAR DIAGNOSTIC 1 EACH STRIP IN SCH ×4 (08:07→22:14)
[2021-04-27] MEDS: CALCIUM ACETATE 667 MG CAP/TAB PO SCH ×3 (08:07→17:17)
[2021-04-27] MEDS: PANTOPRAZOLE 40 MG TABLET.DR PO SCH (08:07)
--- NOTE | 2021-04-27 08:22 | NUR ---
RN OPENING NOTE- PT IN BED, AWAKE, ALERT, AND VERBALLY RESPONSIVE. BREATHING EVEN AND NONLABORED. NO SOB NOTED. TOLERATING ROOM AIR. NO COUGH/N/V NOTED. SKIN WARM AND DRY. OOB TO BR W ASSIST. NOTED WITH LEFT UPPER ARM AV FISTULA, NO BLEEDING NOTED. DENIES PAIN AT SITE. NOTED WITH RIGHT HAND 20G AND RIGHT AC 20G. PATENT. NO INFILTRATION NOTED. NOTED WITH RIGHT UPPER ABDOMEN COLOSTOMY, NO BLEEDING NOTED. ALL NEEDS ATTENDED. CALL LIGHT WITHIN REACH. MONITOR / ASSIST
[2021-04-27] MEDS: VIT B CMPLX 3/FA/VIT C/BIOTIN 1 TAB TABLET PO SCH (08:55)
[2021-04-27] MEDS: CARVEDILOL 12.5 MG TABLET PO SCH ×2 (08:55→17:17)
[2021-04-27] MEDS: MULTIVIT W/MINERALS 1 TAB TABLET PO SCH (08:55)
[2021-04-27] MEDS: glipiZIDE 5 MG TABLET PO SCH ×2 (08:55→17:15)
[2021-04-27] MEDS: ASCORBIC ACID 500 MG TABLET PO SCH (08:57)
[2021-04-27] MEDS: ZINC SULFATE 220 MG CAPSULE PO SCH (08:57)
[2021-04-27] MEDS: ISOSORBIDE DINITRATE (10MG) 10 MG TABLET PO SCH ×3 (08:57→17:18)
[2021-04-27] MEDS: APIXABAN 2.5 MG TABLET PO SCH ×2 (08:58→17:22)
[2021-04-27] MEDS ORDERED: LEVOFLOXACIN 250 MG /D5W 50 ML 50 ML IV SCH (09:00)
[2021-04-27] MEDS: PROSOURCE / PROSTAT (PYXIS) 30 ML UDC PO SCH (09:00)
[2021-04-27] MEDS: INSULIN REGULAR, HUMAN 100 UNIT/ML 3 ML VIAL SQ PRN ×3 (11:58→22:12)
[2021-04-27] MEDS: CLOPIDOGREL BISULFATE 75 MG TABLET PO SCH (13:31)
--- NOTE | 2021-04-27 14:51 | NUR ---
RAAD NOTE- RADHA VIZCARRA ORDERED TRANSFUSION. ORDERS SENT FOR TYPE/SCREEN. PT REFUSED ALL LABS. TRAIN BRAKER EXPLAINED RISKS/BENEFITS. PT CONTINUES TRO REFUSE Addendum: 04/27/21 at 1501 by GIOVANNI SORIA RN RADHA VIZCARRA NOTIFIED OF REFUSAL
[2021-04-27] MEDS: CEFTRIAXONE 1 G in IV D5W 50 ML IV SCH (15:04)
[2021-04-27 16:00] VITALS: BP 130/74
[2021-04-27] MEDS: hydrALAZINE HCL 25 MG TABLET PO SCH ×2 (18:30→21:54)
--- NOTE | 2021-04-27 18:52 | NUR ---
RN CLOSING NOTE- PT ALERT IN BED, OPPOSITIONAL TO CARE AT TIMES, NEEDS ATTENDED, PO INTAKE GOOD, SIDE RAILS UP X 2, BED LOCKED CALL LIGHT IN REACH. ASSIST AND MONITOR
[2021-04-27 20:00] VITALS: BP 131/48
--- NOTE | 2021-04-27 20:00 | NUR ---
ms rn notes Received pts in bed awake a/o x4 . pts is ambulatory , on r/a sating 99% no sob no distress noted v/s stable afebrile no c/o of pain .all due meds given as ordered , no sob no distress noted all needs attended too call light within reach , bed locked and in low position . with left ua av fistula and right hand G22 intact and patent will continue to monitor pts.
[2021-04-27] MEDS: ATORVASTATIN 40 MG TABLET PO SCH (21:51)
[2021-04-27] MEDS: SENNOSIDES 8.6 MG TABLET PO SCH (21:59)
[2021-04-27] MEDS: INSULIN GLARGINE, 100 UNIT/ML CARTRIDGE SQ SCH (22:14)
--- NOTE | 2021-04-27 22:19 | NUR ---
Ms rn notes Blood sugar for 10pm is 203 mg/dl 10 units of lantus givenas ordered and 4 units regular insulin per sliding scale will cotinue to monitor pts..
[2021-04-28] VITALS (8 sets, daily range): BP systolic 140–167; BP diastolic 55–75
--- NOTE | 2021-04-28 01:53 | NUR ---
ms rn notes pts c/o of of perspiring and asking for sugar , blood sugar check 34 mg/dl md made aware dext 50% given iv push as ordered ,pts offered apple juice and sandwich will check blood sugar in an hour , will continue to monitor pts.
--- NOTE | 2021-04-28 03:10 | NUR ---
ms rn notes Blood sugar checked 285mg/dl post 1 hour of d50% administration . pts is alert and comfortable in bed , will checked blood sugar again in am .
[2021-04-28] MEDS: hydrALAZINE HCL 25 MG TABLET PO SCH ×3 (05:17→20:39)
[2021-04-28] MEDS: METRONIDAZOLE 500MG/ NS 100ML 500 MG in PREMIX 1 EA IV SCH (06:00)
--- NOTE | 2021-04-28 06:38 | NUR ---
ms rn notes Pts in bed a/o x4 tamazight speaking ambulatory with assist , refused morning labs , on val av fistula for hd access .no bleeding noted , v/s stable afebrile. will endorse to rn day shift for continuity of care and to follow up labs pts refused blood transfusion yesterday , pts will have dialysis today pls follow for the blood transfusion to administer during dialysis.
--- NOTE | 2021-04-28 07:17 | NUR ---
RN OPENING NOTE PATIENT IN BED, ASLEEP, BUT EASILY AROUSABLE. PATIENT ON ROOM AIR WITH NO SIGNS OF LABORED BREATHING AT THIS TIME. NO COMPLAIN OF PAIN OR DISCOMFORT. PATIENT WITH RIGHT HAND G 20 IV ACCESS ON SALINE LOCK. ALSO WITH LEFT AV FISTULA ON THE LEFT UPPER ARM WITH NO SIGNS OF BLEEDING. SAFETY MEASURES ENSURED WITH BED LOCKED AND IN LOWEST POSITION, SIDE RAILS UP AND CALL LIGHT WITHIN REACH. WILL CONTINUE TO MONITOR PATIENT.
[2021-04-28] MEDS: PANTOPRAZOLE 40 MG TABLET.DR PO SCH (07:43)
[2021-04-28] MEDS: LEVOTHYROXINE SODIUM 25 MCG TABLET PO SCH (07:44)
[2021-04-28] MEDS: BLOOD SUGAR DIAGNOSTIC 1 EACH STRIP IN SCH ×4 (08:01→21:59)
[2021-04-28] MEDS: VIT B CMPLX 3/FA/VIT C/BIOTIN 1 TAB TABLET PO SCH (09:15)
[2021-04-28] MEDS: ASCORBIC ACID 500 MG TABLET PO SCH (09:16)
[2021-04-28] MEDS: CARVEDILOL 12.5 MG TABLET PO SCH ×2 (09:16→17:23)
[2021-04-28] MEDS: ISOSORBIDE DINITRATE (10MG) 10 MG TABLET PO SCH ×3 (09:16→17:22)
[2021-04-28] MEDS: glipiZIDE 5 MG TABLET PO SCH (09:17)
[2021-04-28] MEDS: MULTIVIT W/MINERALS 1 TAB TABLET PO SCH (09:17)
[2021-04-28] MEDS: ZINC SULFATE 220 MG CAPSULE PO SCH (09:17)
[2021-04-28] MEDS: CALCIUM ACETATE 667 MG CAP/TAB PO SCH ×3 (09:17→17:22)
[2021-04-28] MEDS: SEVELAMER CARBONATE 800 MG TABLET PO SCH ×3 (09:18→17:22)
[2021-04-28] MEDS: APIXABAN 2.5 MG TABLET PO SCH ×2 (09:24→17:35)
--- NOTE | 2021-04-28 13:30 | NUR ---
RN NOTE PATIENT WILL UNDERGO HD TODAY. WILL DO TRANSFUSION AND BLOOD DRAW BEFORE/DURING DIALYSIS PER ORDER. PATIENT HAD BEEN REFUSING BLOOD DRAW AND BLOOD TRANSFUSION BUT AGREED TO DO IT DURING THIS TIME.
[2021-04-28] MEDS: CLOPIDOGREL BISULFATE 75 MG TABLET PO SCH (13:52)
[2021-04-28] MEDS: METRONIDAZOLE 500 MG TABLET PO SCH ×2 (13:53→20:37)
--- NOTE | 2021-04-28 14:00 | NUR ---
RN NOTE ABLE TO TOLERATE BLOD TRANSFUSION AND HD. WILL CONTINUE TO MONITOR PATIENT.
[2021-04-28 14:06] LABS: HEMOGLOBIN 7.6 g/dL (13.5-17.5)
[2021-04-28 14:10] LABS: BASOPHILS % (AUTO) 0.5 % (0.0-2.0); EOSINOPHILS % (AUTO) 1.8 % (0.0-6.0); HEMATOCRIT 23 % (39-51); LYMPHOCYTES # (AUTO) 1.4 K/uL (0.8-4.8); LYMPHOCYTES % (AUTO) 15.1 % (20.0-44.0); MEAN CORPUSCULAR HGB CONC 33 g/dl (31.0-36.0); MEAN CORPUSCULAR VOLUME 90 fL (80-96); MONOCYTES % (AUTO) 10.4 % (2.0-12.0); NEUTROPHILS # (AUTO) 6.6 K/uL (1.8-8.9); NEUTROPHILS % (AUTO) 72.2 % (43.0-81.0); PLATELET COUNT (AUTO) 218 K/uL (150-450); RED BLOOD CELL COUNT(AUTO) 2.54 MIL/uL (4.5-6.0); WHITE BLOOD COUNT (AUTO) 9.1 K/uL (4.3-11.0)
[2021-04-28 14:13] LABS: CALCIUM, SERUM 8.6 mg/dL (8.5-10.1); POTASSIUM 4.9 mmol/L (3.5-5.1)
[2021-04-28 14:23] LABS: CREATININE 11.4 mg/dL (0.6-1.3)
[2021-04-28] MEDS: CEFTRIAXONE 1 G in IV D5W 50 ML IV SCH (16:06)
[2021-04-28 16:46] LABS: EOSINOPHILS % (MANUAL) 1 % (0-4); LYMPHOCYTES % (MANUAL) 15 % (16-48); MONOCYTES % (MANUAL) 8 % (0-11.0); NEUTROPHILS % (MANUAL) 76 (42-76)
--- NOTE | 2021-04-28 18:43 | NUR ---
RN CLOSING NOTE PATIENT IN BED, ALERTAND ORIENTED X 4. PATIENT ON ROOM AIR WITH NO SIGNS OF LABORED BREATHING AT THIS TIME. NO COMPLAIN OF PAIN OR DISCOMFORT. PATIENT WITH RIGHT HAND G 20 IV ACCESS ON SALINE LOCK. ALSO WITH LEFT AV FISTULA ON THE LEFT UPPER ARM WITH NO SIGNS OF BLEEDING. WITH OSTOMY BAG WITH LITTLE DRAINAGE. S/P HD AND TOOK OUT TOTAL OF 1200ML. PROCEDURE TOLERATED WELL. SAFETY MEASURES ENSURED WITH BED LOCKED AND IN LOWEST POSITION, SIDE RAILS UP AND CALL LIGHT WITHIN REACH. WILL ENDORSE FOR CONTINUITY OF CARE.
--- NOTE | 2021-04-28 19:00 | NUR ---
received in bed alertand orientated in cook islander told me no insulin and no fátima medication call light within his reach walker noted at the bedside
[2021-04-28] MEDS: SENNOSIDES 8.6 MG TABLET PO SCH (21:51)
[2021-04-28] MEDS: ATORVASTATIN 40 MG TABLET PO SCH (22:00)
[2021-04-28] MEDS: INSULIN GLARGINE, 100 UNIT/ML CARTRIDGE SQ SCH (22:00)
[2021-04-29 04:00] VITALS: BP 133/76
[2021-04-29] MEDS: hydrALAZINE HCL 25 MG TABLET PO SCH ×3 (05:00→21:48)
[2021-04-29] MEDS: METRONIDAZOLE 500 MG TABLET PO SCH ×3 (05:01→21:26)
--- NOTE | 2021-04-29 06:33 | NUR ---
CLOSING NOTES: REMAINS ALERT AND ORIENTATED X4 SPEAKING ONLY [place]AST [place] FOREST LAW AND POLICY PROFESSOR SPEAKING [place] TALKED TO HIM ABOUT THE INSULIN AND HE DOES NOT WHAT INSULIN GIVEN HE REFUSED HIS AM LABS HE IS GOOD ABOUT LIMITING THE ORAL FLUID INTAKE hd DAYS t thr sat LAST DONE WAS YESTERDAY ON THE AM SHIFT
[2021-04-29] MEDS: BLOOD SUGAR DIAGNOSTIC 1 EACH STRIP IN SCH ×4 (07:42→21:26)
--- NOTE | 2021-04-29 07:47 | NUR ---
NURSE OPENING NOTE RECEIVE REPORT FROM OUT GOING NURSE. PATIENT IS A/O X4. SAUDI ARABIAN SPEAKING. PATIENT HAVE REFUSE INSULIN, STOOL SOFTENER, AND AM LAB. ALL SAFETY MEASURE IN PLACE. BED ON THE LOWEST POSITION WITH HOB ELEVATED. 3 SIDE RAIL UP. CALL LIGHT WITHIN REACH. WILL CONTINUE TO MONITOR.
[2021-04-29] MEDS: VIT B CMPLX 3/FA/VIT C/BIOTIN 1 TAB TABLET PO SCH (08:25)
[2021-04-29] MEDS: LEVOTHYROXINE SODIUM 25 MCG TABLET PO SCH (08:26)
[2021-04-29] MEDS: ISOSORBIDE DINITRATE (10MG) 10 MG TABLET PO SCH ×3 (08:27→17:27)
[2021-04-29] MEDS: PANTOPRAZOLE 40 MG TABLET.DR PO SCH (08:28)
[2021-04-29] MEDS: ASCORBIC ACID 500 MG TABLET PO SCH (08:29)
[2021-04-29] MEDS: MULTIVIT W/MINERALS 1 TAB TABLET PO SCH (08:29)
[2021-04-29] MEDS: CARVEDILOL 12.5 MG TABLET PO SCH ×2 (08:29→17:29)
[2021-04-29] MEDS: CALCIUM ACETATE 667 MG CAP/TAB PO SCH ×3 (08:30→17:20)
[2021-04-29] MEDS: SEVELAMER CARBONATE 800 MG TABLET PO SCH ×3 (08:31→17:27)
[2021-04-29] MEDS: ZINC SULFATE 220 MG CAPSULE PO SCH (08:31)
[2021-04-29] MEDS: APIXABAN 2.5 MG TABLET PO SCH ×2 (08:31→17:28)
[2021-04-29 12:00] VITALS: BP 114/44
[2021-04-29] MEDS: CLOPIDOGREL BISULFATE 75 MG TABLET PO SCH (12:44)
[2021-04-29] MEDS: CEFTRIAXONE 1 G in IV D5W 50 ML IV SCH (15:20)
--- NOTE | 2021-04-29 19:30 | NUR ---
RN NOTES Received patient awake on his bed, a/ox4, ambulate with walker, Cameroonian speaking, denies pain, no SOB, call light within reach, siderailsupx2, will continue to monitor
[2021-04-29 20:00] VITALS: BP 132/80
[2021-04-29] MEDS: SENNOSIDES 8.6 MG TABLET PO SCH ×2 (21:26→21:36)
[2021-04-29] MEDS: ATORVASTATIN 40 MG TABLET PO SCH (21:26)
[2021-04-29] MEDS: INSULIN GLARGINE, 100 UNIT/ML CARTRIDGE SQ SCH (21:54)
--- NOTE | 2021-04-29 22:00 | NUR ---
RN NOTES Patient Blood sugar-245, patient refused Insulin coverage and Lantus 10 units
--- NOTE | 2021-04-29 22:00 | NUR ---
RN NOTES Patient will have Diagnostic Laparoscopy , Removal of cholecystectomy on Saturday , patient stated he will sign the consent tomorrow
[2021-04-30 04:00] VITALS: BP 138/72
[2021-04-30] MEDS: METRONIDAZOLE 500 MG TABLET PO SCH ×3 (05:14→21:48)
[2021-04-30] MEDS: hydrALAZINE HCL 25 MG TABLET PO SCH ×3 (05:14→21:48)
--- NOTE | 2021-04-30 06:22 | NUR ---
RN NOTES Awake, denies pain, no SOB< morning care rendered, call light within reach, siderailsupx2, pt. needs attended
[2021-04-30] MEDS: LEVOTHYROXINE SODIUM 25 MCG TABLET PO SCH (07:30)
[2021-04-30] MEDS: BLOOD SUGAR DIAGNOSTIC 1 EACH STRIP IN SCH ×4 (07:30→22:00)
--- NOTE | 2021-04-30 08:00 | NUR ---
PT BS 149. PT DECLINED INSULIN.
[2021-04-30] MEDS: APIXABAN 2.5 MG TABLET PO SCH (09:00)
--- NOTE | 2021-04-30 09:58 | NUR ---
RN NOTE PER MD EJ GUTHRIE. PT WILL HAS SURGICAL PROCEDURE 05/01 @1000.
[2021-04-30] MEDS: ISOSORBIDE DINITRATE (10MG) 10 MG TABLET PO SCH ×3 (10:01→17:00)
[2021-04-30] MEDS: ZINC SULFATE 220 MG CAPSULE PO SCH (10:01)
[2021-04-30] MEDS: CARVEDILOL 12.5 MG TABLET PO SCH ×2 (10:02→17:00)
[2021-04-30] MEDS: MULTIVIT W/MINERALS 1 TAB TABLET PO SCH (10:02)
[2021-04-30] MEDS: VIT B CMPLX 3/FA/VIT C/BIOTIN 1 TAB TABLET PO SCH (10:02)
[2021-04-30] MEDS: ASCORBIC ACID 500 MG TABLET PO SCH (10:02)
[2021-04-30] MEDS: SEVELAMER CARBONATE 800 MG TABLET PO SCH ×3 (10:07→17:31)
[2021-04-30] MEDS: PANTOPRAZOLE 40 MG TABLET.DR PO SCH (10:07)
[2021-04-30] MEDS: CALCIUM ACETATE 667 MG CAP/TAB PO SCH ×3 (10:07→17:31)
[2021-04-30 12:00] VITALS: BP 150/61
[2021-04-30] MEDS: CLOPIDOGREL BISULFATE 75 MG TABLET PO SCH ×2 (12:11→13:00)
--- NOTE | 2021-04-30 14:00 | NUR ---
RN NOTE CONSULT SIGNED FOR LAPAROSCOPY PROCEDURE FOR 05/01 @1000. AT THIS TIME PT DENIED CONSENT FOR REMOVAL OF CHOLECYSTECTOMY BAG, AND POSSIBLE CHOLECYSTECTOMY. SURGICAL PROCEDURE WAS EXPLAINED WITH WEB CONTENT WRITER KEVYN VIZCARRA AT BEDSIDE. WEB CONTENT WRITER AWARE PT ONLY WANTS LAPAROSCOPY AT TIME. PT WILL BE NPO AT MIDNIGHT. CONSENT SIGNED OF ANESTHESIA. PT REQUESTED TAIL BOARD WORKER TO FURTHER EXPLAIN PROCEDURES.
[2021-04-30] MEDS: CEFTRIAXONE 1 G in IV D5W 50 ML IV SCH (14:17)
--- NOTE | 2021-04-30 17:50 | NUR ---
RT Pt is awake/alert and refusing ABG, despite being educated on procedure.
[2021-04-30] MEDS: INSULIN REGULAR, HUMAN 100 UNIT/ML 3 ML VIAL SQ PRN (19:23)
[2021-04-30 20:00] VITALS: BP 139/81
[2021-04-30] MEDS: ATORVASTATIN 40 MG TABLET PO SCH (21:48)
[2021-04-30] MEDS: SENNOSIDES 8.6 MG TABLET PO SCH (21:48)
[2021-04-30] MEDS: INSULIN GLARGINE, 100 UNIT/ML CARTRIDGE SQ SCH (22:00)
--- NOTE | 2021-04-30 22:10 | NUR ---
RN NOTES PATIENT REFUSED BLOOD SUGAR CHECK AND LANTUS 10 UNITS. R/B EXPLAINED X3 STILL REFUSED. CN TALKED TO THE PATIENT WELL STILL REFUSED.
[2021-05-01 04:00] VITALS: BP 128/68
[2021-05-01] MEDS: METRONIDAZOLE 500 MG TABLET PO SCH ×2 (05:00→13:00)
[2021-05-01] MEDS: hydrALAZINE HCL 25 MG TABLET PO SCH ×2 (05:00→13:00)
--- NOTE | 2021-05-01 05:30 | NUR ---
RN NOTES PATIENT REFUSED BLOOD DRAW. R/B EXPLAINED STILL REFUSED. FOR POSSIBLE SURGERY TODAY @ 10 AM
[2021-05-01] MEDS: BLOOD SUGAR DIAGNOSTIC 1 EACH STRIP IN SCH ×2 (07:30→12:00)
[2021-05-01] MEDS: PANTOPRAZOLE 40 MG TABLET.DR PO SCH (07:30)
[2021-05-01] MEDS: LEVOTHYROXINE SODIUM 25 MCG TABLET PO SCH (07:30)
--- NOTE | 2021-05-01 07:30 | NUR ---
MS RN NOTES RECEIVE REPORT FROM OUT GOING NURSE. PATIENT IS A/O X4. SAO TOMEAN SPEAKING. ON ROOM AIR, NO SOB, RESPIRATION UNLABORED, DENIES ANY PAIN, WITH RT HAND IV ACCESS. FLUSHES WELL, SITE CLEAR, HILARIO AV SHUNT POSITIVE THRILL ON PALPATION, PT AMBULATES WITH WALKER, NO SKIN ISSUES. ALL SAFETY MEASURE IN PLACE. BED ON THE LOWEST POSITION WITH HOB ELEVATED. 3 SIDE RAIL UP. CALL LIGHT WITHIN REACH. WILL CONTINUE TO MONITOR. PATIENT FOR SCHEDULED SURGERY AT 1000 AM BUT HE ATE BREAKFAST AND CHANGED HIS MIND ABOUT HAVING SURGERY AND STATED HE DOES NOT NEEDS IT. REFUSED BLOOD SUGAR CHECK AND AM LABS. INFORMED, SURGERY AND STAFF, INFORMED DR. KEVYN VIZCARRA.
[2021-05-01 08:00] VITALS: BP 151/78
[2021-05-01] MEDS: ASCORBIC ACID 500 MG TABLET PO SCH (09:27)
[2021-05-01] MEDS: MULTIVIT W/MINERALS 1 TAB TABLET PO SCH (09:28)
[2021-05-01] MEDS: ZINC SULFATE 220 MG CAPSULE PO SCH (09:28)
[2021-05-01] MEDS: VIT B CMPLX 3/FA/VIT C/BIOTIN 1 TAB TABLET PO SCH (09:28)
[2021-05-01] MEDS: ISOSORBIDE DINITRATE (10MG) 10 MG TABLET PO SCH ×2 (09:28→13:00)
[2021-05-01] MEDS: CARVEDILOL 12.5 MG TABLET PO SCH (09:29)
[2021-05-01] MEDS: SEVELAMER CARBONATE 800 MG TABLET PO SCH ×2 (09:30→13:00)
[2021-05-01] MEDS: CALCIUM ACETATE 667 MG CAP/TAB PO SCH ×2 (09:30→13:00)
--- NOTE | 2021-05-01 09:30 | NUR ---
RN NOTES REFUSED AM MEDS INITIALLY, BUT THEN AGREED TO TAKE THE KIDNEY AND HEART MEDS
--- NOTE | 2021-05-01 11:49 | NUR ---
RN NOTES REPORT GIVEN TO GIOVANNI SHANKAR AT FACILITY. AMBULANCE CONSUMER SAFETY INSPECTOR AT 1400
[2021-05-01 13:00] VITALS: BP 130/68
[2021-05-01] MEDS: CLOPIDOGREL BISULFATE 75 MG TABLET PO SCH (13:00)
--- NOTE | 2021-05-01 14:15 | NUR ---
NEWSCAST PRODUCER NOTES PT DISCHARGED TO [facility] IN STABLE CONDITION. DC INSTRUCTIONS GIVEN AND EXPLAINED TO PT. VERBALIZED UNDERSTANDING. ALL PAPER WORKS SIGNED AND COMPLETED. ALL BELONGINGS SENT. HL FROM RT HAND REMOVED, CATH TIP COMPLETE AND INTACT. NO BLEEDING, DRESSING IN PLACE. REPORT CALLED TO GIOVANNI SHANKAR AT RECEIVING FACILITY. PT LEFT UNIT IN STABLE CONDITION VIA GURNEY. PT ENDORSED TO AMBULANCE CREW ACCORDINGLY.
[2021-05-01] MEDS ORDERED: APIXABAN 2.5 MG TABLET PO SCH (17:00)
[2021-05-01] MEDS ORDERED: CLOPIDOGREL BISULFATE 75 MG TABLET PO SCH (21:00)
== END 2021-05-01 14:23 | disposition home or self-care (01) | DRG 177 ==
LOC: ER 18:04 → TELE1 22:14 → MEDSG1 04-26 08:22
PROVIDERS: ADMIT Nurse Practitioner Acute Care; ATTEND Nurse Practitioner Acute Care
PROC: 5A1D70Z Performance of Urinary Filtration, Intermittent, Less than 6 Hours Per Day (ICD-10-PCS; principal; 2021-04-24)
PROC: 30233N1 Transfusion of Nonautologous Red Blood Cells into Peripheral Vein, Percutaneous Approach (ICD-10-PCS; 2021-04-27)
DX: J15.1 Pneumonia due to Pseudomonas (principal); N18.6 End stage renal disease; I50.33 Acute on chronic diastolic (congestive) heart failure; I13.2 Hypertensive heart and chronic kidney disease with heart failure and with stage 5 chronic kidney disease, or end stage renal disease; E44.0 Moderate protein-calorie malnutrition; C91.10 Chronic lymphocytic leukemia of B-cell type not having achieved remission; D68.59 Other primary thrombophilia; J90 Pleural effusion, not elsewhere classified; E87.5 Hyperkalemia; F32.A Depression, unspecified; E11.22 Type 2 diabetes mellitus with diabetic chronic kidney disease; F41.9 Anxiety disorder, unspecified; Z20.822 Contact with and (suspected) exposure to COVID-19; Z99.2 Dependence on renal dialysis; D63.1 Anemia in chronic kidney disease; E11.65 Type 2 diabetes mellitus with hyperglycemia; E03.9 Hypothyroidism, unspecified; Z86.16 Personal history of COVID-19; I70.0 Atherosclerosis of aorta; M89.9 Disorder of bone, unspecified; E78.5 Hyperlipidemia, unspecified; Z88.1 Allergy status to other antibiotic agents; Z88.2 Allergy status to sulfonamides; Z79.84 Long term (current) use of oral hypoglycemic drugs; Z79.899 Other long term (current) drug therapy; Z79.02 Long term (current) use of antithrombotics/antiplatelets; Z79.01 Long term (current) use of anticoagulants; Z87.891 Personal history of nicotine dependence; Z91.15 Patient's noncompliance with renal dialysis; Z93.3 Colostomy status; Z93.6 Other artificial openings of urinary tract status; N40.0 Benign prostatic hyperplasia without lower urinary tract symptoms; G47.00 Insomnia, unspecified; Z90.49 Acquired absence of other specified parts of digestive tract; I48.0 Paroxysmal atrial fibrillation; K82.8 Other specified diseases of gallbladder; Y95 Nosocomial condition; K81.1 Chronic cholecystitis
CPT/HCPCS: 36415; 71045-TC; 80048-TC; 80061-TC; 80076-TC; 82962-TC; 83540-TC; 83605-TC; 83690-TC; 83735-TC; 83880; 84100-TC; 84484-TC; 85025-TC; 85730-TC; 86706; 86850-TC; 87040-TC; 87081-TC; 87340; 90935-TC; 93307-TC; 97116-TC; 97530-TC; A4216; C9803; G0378; J0696; J1580; J1644; J1815; J1956; J2270; J2405; J3370; J3490; J7050; J7060; P9016; U0003

== ENCOUNTER 2021-09-12 14:43 | Emergency (ER) | payer OTHER ==
[~2021-09-12] VITALS: Ht 170.2 cm; Wt 72.6 kg
[~2021-09-12 14:43] MED LIST changes: +ACET-2605 PO; +ACET-868 PO; -ALBU2.5V13 IH; +AMIN30LI2 PO; +ASCO-352 PO; +CALC667C6 PO; +CLOP75TA15 PO; -FERR325T23 PO; +GLIP5TAB13 PO; -HYDR-3974 PO; -HYDR-4076 PO; -INSU100C4; -IPRA0.2S49 IH; -ISOS40TA12 PO; +LACT10SO3 PO; -MAGN400O6 PO; +MULT-447 PO; -NITR0.4T48 SL; -POLY17PO4 PO; +ZINC1CAP3 PO
--- NOTE | 2021-09-12 15:00 | NUR ---
YAMILKA COOK [id number] From [facility] "missed Dialysis saturday". VITALS CHECKED. PLACED COMFORTABLY ON BED. PATIENT HAS LEFT AV FISTULA +BRUIT/THRILL. WITH AMPUTATED RIGHT BIG TOE.
--- NOTE | 2021-09-12 15:05 | NUR ---
SEEN BY DR GASPAR AT BEDSIDE
--- NOTE | 2021-09-12 15:10 | NUR ---
CXR DONE AT BEDSIDE
--- NOTE | 2021-09-12 15:29 | NUR ---
CALLED [facility] AND SET UP BLS TRANSPORT BACK TO [facility] ETA 1630/1700
--- NOTE | 2021-09-12 15:30 | NUR ---
COVID SWAB DONE AND SENT TO LAB
--- NOTE | 2021-09-12 16:23 | NUR ---
JOYCE DUDLEY CAME TO THERMIT WELDING MACHINE OPERATOR PT... REPORT GIVEN TO UNIT 330. PT IS AWARE THAT HE IS GOING BACK TO HIS RESIDENTIAL.
[2021-09-12 16:25] VITALS: BP 151/71
== END 2021-09-12 16:30 ==
LOC: ER 14:52
DX: E11.22 Type 2 diabetes mellitus with diabetic chronic kidney disease (principal); I12.0 Hypertensive chronic kidney disease with stage 5 chronic kidney disease or end stage renal disease; N18.6 End stage renal disease; Z99.2 Dependence on renal dialysis; Z91.15 Patient's noncompliance with renal dialysis; Z79.84 Long term (current) use of oral hypoglycemic drugs; Z20.822 Contact with and (suspected) exposure to COVID-19; Z79.01 Long term (current) use of anticoagulants; Z79.899 Other long term (current) drug therapy; Z88.0 Allergy status to penicillin; Z88.2 Allergy status to sulfonamides; Z53.29 Procedure and treatment not carried out because of patient's decision for other reasons
CPT/HCPCS: C9803

== ENCOUNTER 2021-12-14 20:37 | Inpatient (IN) | payer MEDICAID, OTHER ==
[~2021-12-14] VITALS: Ht 170.2 cm; Wt 76.2 kg
--- NOTE | 2021-12-14 21:00 | NUR ---
BIBPA FROM SNF C/O WOUND ON RIGHT FOOT BIG TOE AREA S/P RIGHT BIG TOE AMPUTEE. PLACED COMFORTABLY IN BED. VITALS CHECKED.
[2021-12-14] MEDS ORDERED: VANCOMYCIN 1 GM in IV D5W 250 ML IV ONE (22:30)
--- NOTE | 2021-12-14 22:55 | NUR ---
COVID SWAB DONE AND SENT TO LAB
[2021-12-14 22:57] LABS: BASOPHILS # (AUTO) 0.1 K/uL (0.0-0.2); BASOPHILS % (AUTO) 0.6 % (0.0-2.0); EOSINOPHILS % (AUTO) 2.4 % (0.0-6.0); HEMATOCRIT 33 % (39-51); HEMOGLOBIN 10.7 g/dL (13.5-17.5); LYMPHOCYTES # (AUTO) 3.1 K/uL (0.8-4.8); LYMPHOCYTES % (AUTO) 28.4 % (20.0-44.0); MEAN CORPUSCULAR HGB CONC 33 g/dl (31.0-36.0); MEAN CORPUSCULAR VOLUME 87 fL (80-96); MONOCYTES # (AUTO) 1.1 K/uL (0.1-1.30); MONOCYTES % (AUTO) 10.4 % (2.0-12.0); NEUTROPHILS # (AUTO) 6.4 K/uL (1.8-8.9); NEUTROPHILS % (AUTO) 58.2 % (43.0-81.0); PLATELET COUNT (AUTO) 253 K/uL (150-450); RED BLOOD CELL COUNT(AUTO) 3.76 MIL/uL (4.5-6.0)
[2021-12-14 23:34] LABS: CALCIUM, SERUM 8.8 mg/dL (8.5-10.1)
[2021-12-14 23:40] LABS: ALBUMIN 3.5 g/dL (3.4-5.0); BILIRUBIN,DIRECT 0.1 mg/dL (0.0-0.2); BILIRUBIN,TOTAL 0.5 mg/dL (0.2-1.0); TOTAL PROTEIN, SERUM 9.4 g/dL (6.4-8.2)
--- NOTE | 2021-12-15 00:13 | NUR ---
RECIEVED BED 313-1
--- NOTE | 2021-12-15 00:13 | NUR ---
EPIC PANEL PAGED
--- NOTE | 2021-12-15 00:30 | NUR ---
Emmy gregorio in [facility] - 12/15/21 at 0058 by JOHNNY PUSHED PATIENT TO MED/SURG
--- NOTE | 2021-12-15 00:33 | NUR ---
REPORT GIVEN TO RAAD GALVEZ.
--- NOTE | 2021-12-15 00:40 | NUR ---
PUSHED PATIENT TO MED/SURG
--- NOTE | 2021-12-15 00:42 | NUR ---
MS RN NOTES PT A/O X4 FOR TONGAN SPEAKING ONLY. IN NO PAIN OR DISTRESS NOTED AT THIS TIME. NO PAIN OR DISCOMFORT AT THIS TIME. PT HAS IV ACCESS ON THE RIGHT HAND 20G RUNNING VANCO TOLERATING WELL. PT NOTED WITH LEFT AND RIGHT BIG TOE AMPUTATIONS AND WOUNDS ALSO NOTED SCAB ON INDEX FINGER. PHOTOS TAKEN AND PLACED IN CHART. WOUND CONSULT ORDERED. PT ALSO NOTED WITH COLOSTOMY TO RUQ CLEAN AND INTACT. UNABLE TO COMPLETE FULL BODY ASSESSMENT PT REFUSED TO TAKE OFF PANTS AT THIS TIME. BELONGINGS CHECKED AND REPORTED. CALL LIGHT WITHIN REACH TABLE WITHIN REACH. ANTIBIOTICS ORDERED UNAVAILABLE ON THE FLOOR ORDERED PRINTED AND FAXED TO PORT ENGINEER.. BILATERAL SIDE RAILS UP FPR SAFETY. PT ORIENTED TO UNIT AND ROOM . ALL NEEDS MET WILL CONTINUE TO MONITOR.
[2021-12-15] MEDS ORDERED: MAGNESIUM HYDROXIDE 30 ML UDC PO PRN (01:00)
[2021-12-15] MEDS ORDERED: Z GUARD REMEDY 4 OZ OINT TP PRN (01:00)
[2021-12-15] MEDS ORDERED: ZOLPIDEM TARTRATE 5 MG TABLET PO PRN (01:00)
[2021-12-15] MEDS ORDERED: ONDANSETRON HCL/PF 4 MG/2 ML VIAL IVP PRN (01:00)
[2021-12-15] MEDS ORDERED: MAG HYDROX/AL HYDROX/SIMETH 30 ML UDC PO PRN (01:00)
[2021-12-15] MEDS ORDERED: NA PHOS,M-B/NA PHOS,DI-BA 1 EA ENEMA RC PRN (01:00)
[2021-12-15] MEDS ORDERED: BISACODYL SUPP (10 MG) 10 MG/SUPP.RECT SUPP.RECT RC PRN (01:00)
[2021-12-15] MEDS ORDERED: LACTULOSE 10 G/15 ML UDC (PYXIS) PO PRN (01:30)
[2021-12-15 01:44] VITALS: BP 150/75
[2021-12-15] MEDS ORDERED: CLINDAMYCIN 900 MG/6 ML VIAL ONE (02:01)
[2021-12-15] MEDS: CLINDAMYCIN IV RTU IN D5W 600 MG/50 ML PIGGYBACK IV SCH ×2 (02:22→06:55)
--- NOTE | 2021-12-15 02:22 | NUR ---
MS RN NOTES SPOKE TO [facility] PHARMACIST CHRISSIE TO CLARIFY RATE OF ADMINISTRATION OF CLINDAMYCIN PER PHARMACIST GIVE OVER 30 MINS.
[2021-12-15 04:00] VITALS: BP 150/88
[2021-12-15] MEDS: ACETAMINOPHEN 325 MG TABLET PO PRN (06:09)
--- NOTE | 2021-12-15 06:12 | NUR ---
RN NOTES PRN TYLENOL GIVEN FOR 3/10 PAIN TOLERATED WELL WILL CONTINUE TO MONITOR.
--- NOTE | 2021-12-15 06:36 | NUR ---
MS RN NOTES PT IN BED ASLEEP ABLE TO MAKE NEEDS KNOWN. ALL DUE MEDS GIVEN AND TOLERATED WELL.BILATERAL SIDERAILS UP AND BED ALARM ON FPR SAFETY. ALL NEEDS MET WILL ENDORSE CARE TO DAY SHIFT NURSE.
[2021-12-15 06:39] LABS: BASOPHILS # (AUTO) 0.1 K/uL (0.0-0.2); BASOPHILS % (AUTO) 0.6 % (0.0-2.0); EOSINOPHILS % (AUTO) 3.3 % (0.0-6.0); HEMATOCRIT 32 % (39-51); HEMOGLOBIN 10.6 g/dL (13.5-17.5); LYMPHOCYTES # (AUTO) 2.6 K/uL (0.8-4.8); LYMPHOCYTES % (AUTO) 26.2 % (20.0-44.0); MEAN CORPUSCULAR HGB CONC 34 g/dl (31.0-36.0); MEAN CORPUSCULAR VOLUME 86 fL (80-96); MONOCYTES % (AUTO) 10.2 % (2.0-12.0); NEUTROPHILS # (AUTO) 5.8 K/uL (1.8-8.9); NEUTROPHILS % (AUTO) 59.7 % (43.0-81.0); PLATELET COUNT (AUTO) 236 K/uL (150-450); RED BLOOD CELL COUNT(AUTO) 3.65 MIL/uL (4.5-6.0); WHITE BLOOD COUNT (AUTO) 9.7 K/uL (4.3-11.0)
[2021-12-15] MEDS: LEVOTHYROXINE SODIUM 25 MCG TABLET PO SCH (07:14)
[2021-12-15] MEDS: PANTOPRAZOLE 40 MG TABLET.DR PO SCH (07:14)
[2021-12-15 07:25] LABS: CALCIUM, SERUM 8.3 mg/dL (8.5-10.1); CREATININE 6.4 mg/dL (0.6-1.3); MAGNESIUM 2.2 mg/dL (1.8-2.4); PHOSPHORUS 3.8 mg/dL (2.5-4.9)
[2021-12-15 07:26] LABS: C-REACTIVE PROTEIN 4.1 mg/dL (0.0-0.9)
--- NOTE | 2021-12-15 07:28 | NUR ---
MS RN OPENING NOTES PATIENT RECEIVED AWAKE IN BED IN NO ACUTE SIGNS OF DISTRESS. A/O X4. KYRGYZ SPEAKING, DENIES PAIN OR ANY DISCOMFORTS AT THIS TIME. ON ROOM AIR TOLERATING WELL WITH NO SOB NOTED. IV ACCESS ON RIGHT HAND G#20 INTACT AND PATENT. PT WITH HILARIO AV FISTULA WITH + BRUIT AND SHRILL NOTED. PT WITH COLOSTOMY ON RUQ , NO STOOL NOTED AT COLOSTOMY BAG AT THIS TIME. SAFETY MEASURES IN PLACE: BED ON LOWEST LOCKED POSITION, SIDE RAILS UP X2, CALL LIGHT WITHIN REACH. WILL CONTINUE TO MONITOR PT ACCORDINGLY.
[2021-12-15] MEDS ORDERED: VANCOMYCIN 500 MG in IV D5W 100 ML IV PRN (07:30)
[2021-12-15 08:00] VITALS: BP 139/86
[2021-12-15] MEDS: CALCIUM ACETATE 667 MG CAP/TAB PO SCH ×3 (08:04→17:16)
[2021-12-15] MEDS: SEVELAMER CARBONATE 800 MG TABLET PO SCH ×3 (08:04→17:16)
[2021-12-15] MEDS ORDERED: DEXTROSE 50%-WATER 50 ML DISP.SYRIN IV PRN (08:30)
[2021-12-15] MEDS: BLOOD SUGAR DIAGNOSTIC 1 EACH STRIP VI SCH ×4 (08:30→22:14)
[2021-12-15] MEDS: DOCUSATE SODIUM 100 MG CAPSULE PO SCH ×2 (08:33→16:30)
[2021-12-15] MEDS: ASCORBIC ACID 500 MG TABLET PO SCH (08:33)
[2021-12-15] MEDS: ISOSORBIDE DINITRATE (10MG) 10 MG TABLET PO SCH ×3 (08:33→16:31)
[2021-12-15] MEDS: MULTIVIT W/MINERALS 1 TAB TABLET PO SCH (08:34)
[2021-12-15] MEDS: CARVEDILOL 12.5 MG TABLET PO SCH ×2 (08:34→21:25)
[2021-12-15] MEDS: VIT B CMPLX 3/FA/VIT C/BIOTIN 1 TAB TABLET PO SCH (08:34)
[2021-12-15] MEDS: ZINC SULFATE 220 MG CAPSULE PO SCH (08:34)
[2021-12-15] MEDS: PROSOURCE / PROSTAT (PYXIS) 30 ML UDC PO SCH (08:41)
[2021-12-15] MEDS ORDERED: CEFEPIME 1 GM in IV D5W 50 ML IV SCH (09:00)
[2021-12-15] MEDS ORDERED: APIXABAN 2.5 MG TABLET PO SCH (09:00)
[2021-12-15] MEDS ORDERED: APIXABAN 5 MG TABLET PO SCH (09:00)
[2021-12-15] MEDS ORDERED: glipiZIDE 5 MG TABLET PO SCH (09:00)
[2021-12-15] MEDS ORDERED: PROSTAT (PYXIS) 30 ML UDC PO SCH (09:00)
--- NOTE | 2021-12-15 09:15 | NUR ---
WOUND CARE CONSULT: PT PRESENTS WITH DRY ESCHAR TO LEFT INDEX FINGER AND NECROTIC WOUNDS TO BILATERAL FEET, PRESENT ON ADMISSION. DR MCRAE AND DR DE LOS SANTOS NOTIFIED OF SURGICAL AND DPM CONSULTS. PT IS INDEPENDENT WITH BED MOBILITY. MD IN AGREEMENT WITH PLAN OF CARE.
[2021-12-15 09:24] LABS: ALBUMIN 3.3 g/dL (3.4-5.0); BILIRUBIN,DIRECT 0.1 mg/dL (0.0-0.2); BILIRUBIN,TOTAL 0.5 mg/dL (0.2-1.0); TOTAL PROTEIN, SERUM 8.8 g/dL (6.4-8.2)
--- NOTE | 2021-12-15 09:46 | NUR ---
RN NOTES PT PICKED-UP VIA WHEELCHAIR FOR MRI OF RIGHT FOOT.
[2021-12-15] MEDS: INSULIN REGULAR, HUMAN 100 UNIT/ML 3 ML VIAL SQ PRN ×2 (11:06→17:17)
[2021-12-15] MEDS: CLOPIDOGREL BISULFATE 75 MG TABLET PO SCH (12:19)
[2021-12-15] MEDS ORDERED: CEFTRIAXONE 2 G in IV D5W 100 ML IV SCH (13:00)
[2021-12-15] MEDS ORDERED: CEFEPIME 1 GM VIAL IM SCH (14:00)
[2021-12-15 16:00] VITALS: BP 152/54
--- NOTE | 2021-12-15 18:45 | NUR ---
MS RN CLOSING NOTES PATIENT IN BED WATCHING TV AT THIS TIME. A/O X4. AMERICAN SPEAKING. ON ROOM AIR TOLERATING WELL, BREATHING EVEN AND UNLABORED WITH NO SOB NOTED DURING THE DAY. IV ACCESS ON RIGHT HAND G#20 INTACT AND PATENT. PT WITH HILARIO AV FISTULA WITH + BRUIT AND THRILL NOTED. PT WITH COLOSTOMY ON RUQ , NO STOOL NOTED AT COLOSTOMY BAG THIS SHIFT. ALL NEEDS AND CARE ATTENDED WELL. SAFETY PRECAUTIONS MAINTAINED: BED IN LOWEST LOCKED POSITION WITH SR UP X2. TRAY TABLE AND CALL LIGHT W/I REACH OF PT. WILL ENDORSE JUSTIN TO LUMBER STRAIGHTENED NURSE
--- NOTE | 2021-12-15 20:00 | NUR ---
MS RN OPENING NOTE RECEIVED PATIENT IN BED, A/OX4, ENGLISH SPEAKING. NO S/S OF APPARENT DISTRESS IN ROOM AIR. DENIES PAIN AND DISCOMFORT AT THIS TIME. R. FOOT DRESSING NOTED TO BE DRY, CLEAN, AND INTACT. NO FLUIDS RUNNING AT THIS TIME. RE-ORIENTED AND ENCOURAGED WITH THE USE OF CALL LIGHT. SAFETY IN PLACE. WILL CONTINUE WITH PLAN OF CARE FOR PATIENT.
[2021-12-15 20:13] VITALS: BP 181/66
[2021-12-15] MEDS: DAKINS QUARTER STRENGTH (0.125%) 480 ML BOTTLE TOP SCH (20:29)
[2021-12-15] MEDS: ATORVASTATIN 40 MG TABLET PO SCH (21:25)
[2021-12-15] MEDS: SENNOSIDES 8.6 MG TABLET PO SCH (21:28)
--- NOTE | 2021-12-15 21:29 | NUR ---
MS RN NOTE- NON-ADMIN PATIENT REFUSED SENNA TABS. PER PATIENT HE HAD X3 BM TODAY. OPENED SENNA TABS DISPOSED IN PROPER DISPOSAL BIN.
[2021-12-15 22:00] VITALS: BP 165/53
--- NOTE | 2021-12-15 22:00 | NUR ---
MS RN NOTE- BP RE-CHECK PATIENT BP WENT DOWN TO 165/53, HR 73 AFTER SCHEDULED COREG 25 MG. PATIENT SCHEDULED FOR DIALYSIS TOMORROW. WILL MONITOR.
[2021-12-15] MEDS: *INSULIN REGULAR(HUMULIN R)HUM 100 UNIT/ML VIAL SQ PRN (22:14)
--- NOTE | 2021-12-15 22:15 | NUR ---
MS RN NOTE- NON-ADMIN PATIENT BLOOD SUGAR 138. PATIENT REFUSED INSULIN. PER PATIENT THAT BS IS GOOD NUMBER FOR HIM. RISK AND BENEFITS EXPLAINED.
[2021-12-16 06:27] LABS: BASOPHILS % (AUTO) 0.4 % (0.0-2.0); EOSINOPHILS % (AUTO) 2.7 % (0.0-6.0); HEMATOCRIT 35 % (39-51); HEMOGLOBIN 11.6 g/dL (13.5-17.5); LYMPHOCYTES # (AUTO) 2.2 K/uL (0.8-4.8); LYMPHOCYTES % (AUTO) 18.5 % (20.0-44.0); MEAN CORPUSCULAR HGB CONC 33 g/dl (31.0-36.0); MEAN CORPUSCULAR VOLUME 87 fL (80-96); MONOCYTES % (AUTO) 8.6 % (2.0-12.0); NEUTROPHILS # (AUTO) 8.2 K/uL (1.8-8.9); NEUTROPHILS % (AUTO) 69.8 % (43.0-81.0); PLATELET COUNT (AUTO) 232 K/uL (150-450); RED BLOOD CELL COUNT(AUTO) 4.03 MIL/uL (4.5-6.0); WHITE BLOOD COUNT (AUTO) 11.7 K/uL (4.3-11.0)
[2021-12-16] MEDS: BLOOD SUGAR DIAGNOSTIC 1 EACH STRIP VI SCH ×4 (06:53→21:35)
[2021-12-16] MEDS: INSULIN REGULAR, HUMAN 100 UNIT/ML 3 ML VIAL SQ PRN (06:53)
--- NOTE | 2021-12-16 07:15 | NUR ---
MS RN NOTES PATIENT IN BED, ALERT ORIENTED X 4, NO ACUTE DISTRESS NOTED.BREATHING UNLABORED.HILARIO DIALYSIS ACCESS INTACT, NO REDNESS, NO BLEEDING , NO REDNESS NOTED. SAFETY MEASURES IN PLACE, CALL LIGHT WITHIN REACH. WILL CONTINUE TO MONITOR ACCORDINGLY.
[2021-12-16 07:16] LABS: ALBUMIN 3.2 g/dL (3.4-5.0); BILIRUBIN,TOTAL 0.5 mg/dL (0.2-1.0); CALCIUM, SERUM 8.6 mg/dL (8.5-10.1); TOTAL PROTEIN, SERUM 8.7 g/dL (6.4-8.2)
[2021-12-16] MEDS: LEVOTHYROXINE SODIUM 25 MCG TABLET PO SCH (07:30)
[2021-12-16] MEDS: PANTOPRAZOLE 40 MG TABLET.DR PO SCH (07:30)
--- NOTE | 2021-12-16 07:42 | NUR ---
MS RN NOTE NEEDS ATTENDED. REPORT GIVEN TO RAAD MERIDA FOR CONTINUITY OF CARE.
[2021-12-16 07:43] LABS: CREATININE 8.5 mg/dL (0.6-1.3)
[2021-12-16] MEDS: SEVELAMER CARBONATE 800 MG TABLET PO SCH ×3 (07:54→18:28)
[2021-12-16] MEDS: CALCIUM ACETATE 667 MG CAP/TAB PO SCH ×3 (07:54→18:27)
[2021-12-16 08:00] VITALS: BP 197/78
--- NOTE | 2021-12-16 08:25 | NUR ---
PATIENT SEEN AND EVALUATED BY DR KATY VINES WITH NO NEW ORDER MADE.AWARE OF ELEVATED BP, PATIENT FOR CTA AND HD TODAY
[2021-12-16] MEDS: DAKINS QUARTER STRENGTH (0.125%) 480 ML BOTTLE TOP SCH (08:51)
[2021-12-16] MEDS: CARVEDILOL 12.5 MG TABLET PO SCH ×2 (09:00→21:17)
[2021-12-16] MEDS: MULTIVIT W/MINERALS 1 TAB TABLET PO SCH (09:00)
[2021-12-16] MEDS: ZINC SULFATE 220 MG CAPSULE PO SCH (09:00)
[2021-12-16] MEDS: ASCORBIC ACID 500 MG TABLET PO SCH (09:00)
[2021-12-16] MEDS: ISOSORBIDE DINITRATE (10MG) 10 MG TABLET PO SCH ×3 (09:00→18:27)
[2021-12-16] MEDS: VIT B CMPLX 3/FA/VIT C/BIOTIN 1 TAB TABLET PO SCH (09:00)
[2021-12-16] MEDS: PROSOURCE / PROSTAT (PYXIS) 30 ML UDC PO SCH (09:00)
[2021-12-16] MEDS: DOCUSATE SODIUM 100 MG CAPSULE PO SCH ×2 (09:00→18:27)
[2021-12-16] MEDS ORDERED: IV NS 0.9% 250 ML IV ONE (09:29)
[2021-12-16] MEDS ORDERED: IOHEXOL-350 100 ML VIAL IV ONE (09:29)
--- NOTE | 2021-12-16 10:28 | NUR ---
CTA SCHEDULED AT 10AM TODAY, THE PATIENT DOES NOT HAVE 20G OR LARGER IV IN THE AC. NURSE WILL CALL BACK WHEN READY
[2021-12-16] MEDS: CEFEPIME 1 GM in IV D5W 50 ML IV SCH (11:20)
--- NOTE | 2021-12-16 12:50 | NUR ---
TRANSPORTED FOR CTA IN STABLE CONDITION.
[2021-12-16] MEDS: CLOPIDOGREL BISULFATE 75 MG TABLET PO SCH (13:00)
--- NOTE | 2021-12-16 13:15 | NUR ---
PATIENT CAME BACK FROM CTA IN STABLE CONDITION. DIALYSIS NURSE MADE AWARE THAT PATIENT READY FOR HD
[2021-12-16 14:20] VITALS: BP 143/72
--- NOTE | 2021-12-16 15:00 | NUR ---
HEMODIALYSIS STARTED AT BEDSIDE BY DIALYSIS NURSE
[2021-12-16 16:00] VITALS: BP 173/49
--- NOTE | 2021-12-16 17:45 | NUR ---
DIALYSIS ENDED PATIENT IN STABLE CONDITION
--- NOTE | 2021-12-16 18:20 | NUR ---
clarified diet with dr nayak with new order for renal diabetic diet and mentioned that sbp from 190's to 140'a, patient had procedure and hd today. md said may give schedule bp medication now and recheck after 1 hour and may give prn for bp, order clarified and readback with md, noted and carried out.
--- NOTE | 2021-12-16 18:28 | NUR ---
blood sugar 69 provided apple juice and patient will eat dinner now. patient asymptomatic
--- NOTE | 2021-12-16 18:57 | NUR ---
MS RN NOTES PATIENT IN BED, ALERT ORIENTED X 4, NO ACUTE DISTRESS NOTED.BREATHING UNLABORED.HILARIO DIALYSIS ACCESS INTACT, NO REDNESS, NO BLEEDING , NO REDNESS NOTED. SAFETY MEASURES IN PLACE, CALL LIGHT WITHIN REACH. NEEDS ATTENDED AND ANTICIPATED.WILL ENDORSE TO NIGHT NURSE FOR CONTINUITY OF CARE
--- NOTE | 2021-12-16 19:20 | NUR ---
RN opening notes Pt is resting in bed comfortably. Pt is alert and orientedX3. On room air. No SOB. No S/S of distress noted. SHANTHI midline is clean, and intact. HILARIO fistula is clean and intact. S/P HD today. Safety precautions is maintained. bed at low position, brakes locked, side rails upX3, urinal at the bedside, bed alarm is on and call light is within reach. Will continue to monitor.
[2021-12-16 20:00] VITALS: BP 118/56
[2021-12-16 20:31] VITALS: BP 118/56
[2021-12-16] MEDS: ATORVASTATIN 40 MG TABLET PO SCH (21:16)
[2021-12-16] MEDS: SENNOSIDES 8.6 MG TABLET PO SCH (21:30)
--- NOTE | 2021-12-16 21:30 | NUR ---
RN notes Pt refused sennakot tab. explained risks and benefits. Pt refused med. Pt informed that Pt had BM today. Disposed meds at proper disposal bin.
[2021-12-16] MEDS: *INSULIN REGULAR(HUMULIN R)HUM 100 UNIT/ML VIAL SQ PRN (21:37)
--- NOTE | 2021-12-17 05:00 | NUR ---
RN notes Wound care provided as ordered. Pt tolerated activity well.
[2021-12-17] MEDS: BLOOD SUGAR DIAGNOSTIC 1 EACH STRIP VI SCH ×4 (06:33→21:41)
[2021-12-17] MEDS: INSULIN REGULAR, HUMAN 100 UNIT/ML 3 ML VIAL SQ PRN ×2 (06:34→11:53)
[2021-12-17 06:38] LABS: BASOPHILS # (AUTO) 0.1 K/uL (0.0-0.2); BASOPHILS % (AUTO) 0.9 % (0.0-2.0); EOSINOPHILS % (AUTO) 2.8 % (0.0-6.0); HEMATOCRIT 33 % (39-51); LYMPHOCYTES # (AUTO) 1.9 K/uL (0.8-4.8); LYMPHOCYTES % (AUTO) 15.6 % (20.0-44.0); MEAN CORPUSCULAR HGB CONC 33 g/dl (31.0-36.0); MEAN CORPUSCULAR VOLUME 88 fL (80-96); MONOCYTES # (AUTO) 1.3 K/uL (0.1-1.30); MONOCYTES % (AUTO) 10.7 % (2.0-12.0); NEUTROPHILS # (AUTO) 8.5 K/uL (1.8-8.9); PLATELET COUNT (AUTO) 229 K/uL (150-450); RED BLOOD CELL COUNT(AUTO) 3.78 MIL/uL (4.5-6.0); WHITE BLOOD COUNT (AUTO) 12.2 K/uL (4.3-11.0)
--- NOTE | 2021-12-17 06:43 | NUR ---
RN closing notes Pt is resting in bed comfortably. Pt is alert and orientedX3. On room air. No SOB. No S/S of distress noted. VS is stable. SHANTHI midline is clean, and intact. HILARIO fistula is thrill and bruit. Routine meds were given as ordered. Wound care provided as ordered. Kept Pt clean, dry and comfortable. Safety precautions is maintained. bed at low position, brakes locked, side rails upX3, urinal at the bedside, bed alarm is on and call light is within reach. Will endorse to am nurse for JUSTIN.
--- NOTE | 2021-12-17 07:20 | NUR ---
MS RN OPENING NOTE Patient in bed, asleep. A/O x 3. On room air, breathing evenly and unlabored. No SOB or s/s of distress noted. IV access on SHANTHI midline, SL intact and patent. Safety precautions in place: bed in low, locked position; siderails up x 2; call light within reach. Will continue to monitor.
[2021-12-17 07:36] LABS: ALBUMIN 3.1 g/dL (3.4-5.0); BILIRUBIN,TOTAL 0.5 mg/dL (0.2-1.0); CREATININE 6.4 mg/dL (0.6-1.3); MAGNESIUM 2.2 mg/dL (1.8-2.4); PHOSPHORUS 3.3 mg/dL (2.5-4.9); TOTAL PROTEIN, SERUM 8.3 g/dL (6.4-8.2)
[2021-12-17 07:38] LABS: CALCIUM, SERUM 9.5 mg/dL (8.5-10.1)
--- NOTE | 2021-12-17 07:40 | NUR ---
RN NOTE Received critical lab value from Adan from lab, potassium is 6.3. Dr. Verma is aware and ordered Kayaxelate and dialysis.
[2021-12-17 07:41] LABS: POTASSIUM 6.3 mmol/L (3.5-5.1)
[2021-12-17] MEDS ORDERED: SODIUM POLYSTYRENE SULFONATE 15 G/60 ML BOTTLE PO ONE (08:00)
[2021-12-17 08:40] VITALS: BP 166/63
[2021-12-17] MEDS: CARVEDILOL 12.5 MG TABLET PO SCH ×2 (08:58→21:36)
[2021-12-17] MEDS: DOCUSATE SODIUM 100 MG CAPSULE PO SCH ×2 (08:58→17:39)
[2021-12-17] MEDS: PROSOURCE / PROSTAT (PYXIS) 30 ML UDC PO SCH (08:58)
[2021-12-17] MEDS: LEVOTHYROXINE SODIUM 25 MCG TABLET PO SCH (08:58)
[2021-12-17] MEDS: CALCIUM ACETATE 667 MG CAP/TAB PO SCH ×3 (08:58→17:40)
[2021-12-17] MEDS: PANTOPRAZOLE 40 MG TABLET.DR PO SCH (08:58)
[2021-12-17] MEDS: ZINC SULFATE 220 MG CAPSULE PO SCH (08:58)
[2021-12-17] MEDS: ISOSORBIDE DINITRATE (10MG) 10 MG TABLET PO SCH ×3 (08:59→17:40)
[2021-12-17] MEDS: SEVELAMER CARBONATE 800 MG TABLET PO SCH ×3 (08:59→17:40)
[2021-12-17] MEDS: ASCORBIC ACID 500 MG TABLET PO SCH (08:59)
[2021-12-17] MEDS: VIT B CMPLX 3/FA/VIT C/BIOTIN 1 TAB TABLET PO SCH (08:59)
[2021-12-17] MEDS: MULTIVIT W/MINERALS 1 TAB TABLET PO SCH (08:59)
[2021-12-17] MEDS: DAKINS QUARTER STRENGTH (0.125%) 480 ML BOTTLE TOP SCH (09:00)
--- NOTE | 2021-12-17 09:38 | NUR ---
RN NOTE Patient refused to take Kayexelate, states he's going to have dialysis anyway. Explained the risks of not taking the medication, patient still refused.
[2021-12-17] MEDS: CEFEPIME 1 GM in IV D5W 50 ML IV SCH (11:40)
[2021-12-17] MEDS: CLOPIDOGREL BISULFATE 75 MG TABLET PO SCH (13:36)
[2021-12-17 16:46] VITALS: BP 121/56
--- NOTE | 2021-12-17 18:00 | NUR ---
RN NOTE Redraw for potassium done, potassium level is now 3.9.
--- NOTE | 2021-12-17 18:46 | NUR ---
MS RN CLOSING NOTE Patient in bed, resting comfortably. A/O x 3., able to make needs known. stable on room air, breathing evenly and unlabored. No SOB or s/s of distress noted. IV access on SHANTHI midline, SL intact and patent. All needs attended to. Due meds given. Safety precautions maintained: bed in low, locked position; siderails up x 2; call light within reach. Will endorse to eggs inspector nurse for JUSTIN.
--- NOTE | 2021-12-17 19:30 | NUR ---
RN opening notes Pt is sitting in bed comfortably watching TV. Pt is alert and orientedX3. On room air. No SOB. No S/S of distress noted. SHANTHI midline is clean, and intact. HILARIO fistula is thrill and bruit. Safety precautions is maintained. bed at low position, brakes locked, side rails upX3, urinal at the bedside, bed alarm is on and call light is within reach. Will continue to monitor.
[2021-12-17 20:00] VITALS: BP 147/44
[2021-12-17] MEDS: ATORVASTATIN 40 MG TABLET PO SCH (21:36)
[2021-12-17] MEDS: SENNOSIDES 8.6 MG TABLET PO SCH (21:41)
[2021-12-17] MEDS: *INSULIN REGULAR(HUMULIN R)HUM 100 UNIT/ML VIAL SQ PRN (21:42)
[2021-12-18 03:14] LABS: OCCULT BLOOD STOOL NEGATIVE (NEGATIVE)
--- NOTE | 2021-12-18 04:03 | NUR ---
RN notes Pt refused to have blood drawn by phlebotomy. Pt also refused to sign the consent for L ext. angiogram. Explained risks and benefits. Pt keep refusing and screaming to staff. Informed phlebotomy to come again. Will continue to monitor.
--- NOTE | 2021-12-18 04:34 | NUR ---
RN notes Pt signed the consent for L ext. angiogram with possible intervention. Placed consent at Pt's chart.
[2021-12-18] MEDS ORDERED: IV NS 0.9% 1,000 ML ONE (06:35)
[2021-12-18] MEDS ORDERED: IODIXANOL 320MG/ML 0 ML IV ONE (06:35)
[2021-12-18] MEDS ORDERED: IV SET PRIMARY PUMP SET 1 EA INFUS.SET MC ONE (06:36)
--- NOTE | 2021-12-18 06:36 | NUR ---
RN notes Pt is going to cath lab technologist picked up with mini lab operator nurse.
[2021-12-18 06:39] LABS: BASOPHILS # (AUTO) 0.1 K/uL (0.0-0.2); BASOPHILS % (AUTO) 0.7 % (0.0-2.0); EOSINOPHILS % (AUTO) 2.4 % (0.0-6.0); HEMATOCRIT 31 % (39-51); HEMOGLOBIN 10.5 g/dL (13.5-17.5); LYMPHOCYTES # (AUTO) 2.7 K/uL (0.8-4.8); LYMPHOCYTES % (AUTO) 20.9 % (20.0-44.0); MEAN CORPUSCULAR HGB CONC 34 g/dl (31.0-36.0); MEAN CORPUSCULAR VOLUME 87 fL (80-96); MONOCYTES # (AUTO) 1.4 K/uL (0.1-1.30); MONOCYTES % (AUTO) 10.6 % (2.0-12.0); NEUTROPHILS # (AUTO) 8.4 K/uL (1.8-8.9); NEUTROPHILS % (AUTO) 65.4 % (43.0-81.0); PLATELET COUNT (AUTO) 226 K/uL (150-450); RED BLOOD CELL COUNT(AUTO) 3.59 MIL/uL (4.5-6.0); WHITE BLOOD COUNT (AUTO) 12.8 K/uL (4.3-11.0)
[2021-12-18] MEDS: BLOOD SUGAR DIAGNOSTIC 1 EACH STRIP VI SCH ×4 (06:40→21:30)
[2021-12-18] MEDS ORDERED: IODIXANOL 150 ML IV ONE (06:46)
--- NOTE | 2021-12-18 07:00 | NUR ---
RN closing notes Endorsed to am nurse Pt is in OR.
[2021-12-18] MEDS ORDERED: LIDOCAINE HCL/MPF 1% 30 ML VIAL IJ ONE (07:08)
[2021-12-18] MEDS ORDERED: MIDAZOLAM HCL 2 MG/2ML VIAL ONE (07:10)
[2021-12-18] MEDS ORDERED: FENTANYL PF 100MCG/2ML AMPUL ONE (07:10)
--- NOTE | 2021-12-18 07:26 | NUR ---
MS RN CLOSING NOTE PT IN BED ASLEEP, EASILY AROUSED. A/O X4, ABLE TO MAKE NEEDS KNOWN. ON RA, TOLERATING WELL. BREATHING EVEN AND UNLABORED. NOT IN ANY SIGN OF RESPIRATORY DISTRESS. IV ACCESS ON SHANTHI MIDLINE G #18, SL, INTACT AND PATENT. HILARIO AV FISTULA INTACT. ALL NEEDS ATTENDED. KEPT CLEAN AND COMFORTABLE. SAFETY MEASURES IN PLACE: BED IN LOWEST AND LOCKED POSITION, SIDE RAILS UP X2, AND CALL LIGHT WITHIN REACH. ENDORSED TO EVENT SPECIALIST PRODUCT DEMONSTRATOR NURSE FOR JUSTIN. Addendum: 12/18/21 at 2016 by MINESH TORRES RN DELETE ENTRY WRONG ENTRY
--- NOTE | 2021-12-18 07:27 | NUR ---
MS RN OPENING NOTE PT IS CURRENTLY NOT IN THE UNIT. PT IS AT CELL STRIPPER FINAL FOR A L EXT. ANGIOGRAM WITH POSSIBLE INTERVENTION PROCEDURE.
[2021-12-18] MEDS: PANTOPRAZOLE 40 MG TABLET.DR PO SCH (07:30)
[2021-12-18] MEDS: LEVOTHYROXINE SODIUM 25 MCG TABLET PO SCH (07:30)
--- NOTE | 2021-12-18 07:35 | NUR ---
RN NOTE SYNTHROID AND PROTONIX MEDICATION SCHEDULED AT 0730 NOT ADMINISTERED. PT IS AT OR FOR A L EXT ANGIOGRAM WITH POSSIBLE INTERVENTION PROCEDURE.
[2021-12-18 07:52] LABS: ALBUMIN 3.2 g/dL (3.4-5.0); BILIRUBIN,TOTAL 0.5 mg/dL (0.2-1.0); CALCIUM, SERUM 9.1 mg/dL (8.5-10.1); CREATININE 6.4 mg/dL (0.6-1.3); MAGNESIUM 2.2 mg/dL (1.8-2.4); PHOSPHORUS 3.4 mg/dL (2.5-4.9); POTASSIUM 4.9 mmol/L (3.5-5.1); TOTAL PROTEIN, SERUM 8.7 g/dL (6.4-8.2)
[2021-12-18 08:35] VITALS: BP 188/61
--- NOTE | 2021-12-18 08:35 | NUR ---
RN NOTE PT BACK FROM [facility]LET [facility]KER REPORT RECEIVED FROM RAAD GAYLE. PT S/P LEFT EXT. ANGIOGRAM. L GROIN ULTRASOUND GUIDED ACCESS WITH DRESSING INTACT, NO ACTIVE BLEEDING NOTED. INSTRUCTED PT TO LAY FLAT FOR AT LEAST 3 HRS PER IRWIN. VITAL SIGNS STABLE. WILL CONTINUE TO MONITOR.
[2021-12-18] MEDS: SEVELAMER CARBONATE 800 MG TABLET PO SCH ×3 (09:24→17:52)
[2021-12-18] MEDS: VIT B CMPLX 3/FA/VIT C/BIOTIN 1 TAB TABLET PO SCH (09:24)
[2021-12-18] MEDS: ISOSORBIDE DINITRATE (10MG) 10 MG TABLET PO SCH ×3 (09:25→17:52)
[2021-12-18] MEDS: ZINC SULFATE 220 MG CAPSULE PO SCH (09:26)
[2021-12-18] MEDS: DOCUSATE SODIUM 100 MG CAPSULE PO SCH ×2 (09:26→17:52)
[2021-12-18] MEDS: CARVEDILOL 12.5 MG TABLET PO SCH ×2 (09:26→21:00)
[2021-12-18] MEDS: MULTIVIT W/MINERALS 1 TAB TABLET PO SCH (09:26)
[2021-12-18] MEDS: CALCIUM ACETATE 667 MG CAP/TAB PO SCH ×3 (09:26→17:52)
[2021-12-18] MEDS: ASCORBIC ACID 500 MG TABLET PO SCH (09:28)
[2021-12-18] MEDS: PROSOURCE / PROSTAT (PYXIS) 30 ML UDC PO SCH (09:28)
[2021-12-18] MEDS: DAKINS QUARTER STRENGTH (0.125%) 480 ML BOTTLE TOP SCH (09:29)
[2021-12-18] MEDS: INSULIN REGULAR, HUMAN 100 UNIT/ML 3 ML VIAL SQ PRN ×3 (12:00→21:31)
[2021-12-18] MEDS: CLOPIDOGREL BISULFATE 75 MG TABLET PO SCH (12:35)
[2021-12-18] MEDS: LINEZOLID 600 MG TABLET PO SCH ×2 (12:36→21:22)
[2021-12-18] MEDS: MEROPENEM 500 MG in IV NS 0.9% 50 ML IV SCH (13:09)
[2021-12-18 16:07] VITALS: BP 109/54
--- NOTE | 2021-12-18 19:21 | NUR ---
RN opening notes Pt is sitting in bed comfortably watching TV. Pt is alert and orientedX3. On room air. No SOB. No S/S of distress noted. SHANTHI midline is clean, and intact. HILARIO fistula is thrill and bruit. pt s/p angiogram this morning.Safety precautions is maintained. bed at low position, brakes locked, side rails upX3, urinal at the bedside, bed alarm is on and call light is within reach. Will continue to monitor.
--- NOTE | 2021-12-18 19:26 | NUR ---
MS RN CLOSING NOTE PT IN BED ASLEEP, EASILY AROUSED. A/O X4, ABLE TO MAKE NEEDS KNOWN. ON RA, TOLERATING WELL. BREATHING EVEN AND UNLABORED. NOT IN ANY SIGN OF RESPIRATORY DISTRESS. IV ACCESS ON SHANTHI MIDLINE G #18, SL, INTACT AND PATENT. HILARIO AV FISTULA INTACT. ALL NEEDS ATTENDED. KEPT CLEAN AND COMFORTABLE. SAFETY MEASURES IN PLACE: BED IN LOWEST AND LOCKED POSITION, SIDE RAILS UP X2, AND CALL LIGHT WITHIN REACH. ENDORSED TO [employer] FLATBED DRIVER NURSE FOR JUSTIN.
[2021-12-18 20:00] VITALS: BP 102/42
[2021-12-18] MEDS: SENNOSIDES 8.6 MG TABLET PO SCH (21:24)
[2021-12-18] MEDS: ATORVASTATIN 40 MG TABLET PO SCH (21:24)
--- NOTE | 2021-12-18 21:33 | NUR ---
ms rn notes pt refused insulin coverage and bp med per pt " my bp will get very low and so will my blood sugar i don't want it if i need it i will take it in the morning the insulin"
[2021-12-19] MEDS: MEROPENEM 500 MG in IV NS 0.9% 50 ML IV SCH ×2 (00:06→12:36)
[2021-12-19] MEDS: BLOOD SUGAR DIAGNOSTIC 1 EACH STRIP VI SCH ×4 (06:28→21:28)
[2021-12-19] MEDS: INSULIN REGULAR, HUMAN 100 UNIT/ML 3 ML VIAL SQ PRN ×3 (06:29→17:05)
--- NOTE | 2021-12-19 06:30 | NUR ---
MS RN CLOSING NOTE PT IN BED ASLEEP, EASILY AROUSED. A/O X4, ABLE TO MAKE NEEDS KNOWN. ON RA, TOLERATING WELL. BREATHING EVEN AND UNLABORED. NOT IN ANY SIGN OF RESPIRATORY DISTRESS. IV ACCESS ON SHANTHI MIDLINE G #18, SL, INTACT AND PATENT. HILARIO AV FISTULA INTACT. ALL NEEDS ATTENDED. KEPT CLEAN AND COMFORTABLE. SAFETY MEASURES IN PLACE: BED IN LOWEST AND LOCKED POSITION, SIDE RAILS UP X2, AND CALL LIGHT WITHIN REACH. ENDORSED TO DAY SHIFT NURSE FOR JUSTIN.
[2021-12-19] MEDS: LEVOTHYROXINE SODIUM 25 MCG TABLET PO SCH (07:19)
[2021-12-19] MEDS: PANTOPRAZOLE 40 MG TABLET.DR PO SCH (07:19)
--- NOTE | 2021-12-19 07:28 | NUR ---
MS RN OPENING NOTE RECEIVED PATIENT IN BED AWAKE. A/O X4, ABLE TO MAKE NEEDS KNOWN. ON RA, TOLERATING WELL. BREATHING EVEN AND UNLABORED. NOT IN ANY SIGN OF RESPIRATORY DISTRESS. IV ACCESS ON SHANTHI MIDLINE G #18, SL, INTACT AND PATENT. HILARIO AV FISTULA INTACT. KEPT CLEAN AND COMFORTABLE. SAFETY MEASURES IN PLACE: BED IN LOWEST AND LOCKED POSITION, SIDE RAILS UP X2, AND CALL LIGHT WITHIN REACH. WILL CONTINUE TO MONITOR.
[2021-12-19 08:00] VITALS: BP 152/69
[2021-12-19] MEDS: CALCIUM ACETATE 667 MG CAP/TAB PO SCH ×3 (08:07→17:26)
[2021-12-19] MEDS: SEVELAMER CARBONATE 800 MG TABLET PO SCH ×3 (08:07→17:26)
[2021-12-19] MEDS: MULTIVIT W/MINERALS 1 TAB TABLET PO SCH (08:47)
[2021-12-19] MEDS: ZINC SULFATE 220 MG CAPSULE PO SCH (08:47)
[2021-12-19] MEDS: ASCORBIC ACID 500 MG TABLET PO SCH (08:47)
[2021-12-19] MEDS: VIT B CMPLX 3/FA/VIT C/BIOTIN 1 TAB TABLET PO SCH (08:47)
[2021-12-19] MEDS: LINEZOLID 600 MG TABLET PO SCH ×2 (08:47→21:27)
[2021-12-19] MEDS: DOCUSATE SODIUM 100 MG CAPSULE PO SCH ×2 (08:48→16:23)
[2021-12-19] MEDS: DAKINS QUARTER STRENGTH (0.125%) 480 ML BOTTLE TOP SCH (08:50)
[2021-12-19] MEDS: PROSOURCE / PROSTAT (PYXIS) 30 ML UDC PO SCH (08:50)
[2021-12-19] MEDS: ISOSORBIDE DINITRATE (10MG) 10 MG TABLET PO SCH ×3 (11:10→16:23)
[2021-12-19] MEDS: CARVEDILOL 12.5 MG TABLET PO SCH ×2 (11:10→21:00)
[2021-12-19] MEDS: CLOPIDOGREL BISULFATE 75 MG TABLET PO SCH (12:37)
--- NOTE | 2021-12-19 15:31 | NUR ---
RN NOTES PATIENT REFUSED LABS FOR 3 TIMES. LABS WERE FINALLY CANCELED FOR TODAY.
[2021-12-19 16:00] VITALS: BP 118/57
--- NOTE | 2021-12-19 18:33 | NUR ---
MS RN CLOSING NOTE PATIENT IN BED AWAKE. A/O X4, ABLE TO MAKE NEEDS KNOWN. ON RA, TOLERATING WELL. BREATHING EVEN AND UNLABORED. NOT IN ANY SIGN OF RESPIRATORY DISTRESS. IV ACCESS ON SHANTHI MIDLINE G #18, SL, INTACT AND PATENT. HILARIO AV FISTULA INTACT. POSITIVE THRILL AND BRUIT.HEMODIALYSIS DONE TODAY .1600 ML OUTPUT. ALL DUE MEDS AND TREATMENTS GIVEN TODAY.KEPT CLEAN AND COMFORTABLE. SAFETY MEASURES IN PLACE: BED IN LOWEST AND LOCKED POSITION, SIDE RAILS UP X2, AND CALL LIGHT WITHIN REACH. WILL ENDORSE FOR JUSTIN.
--- NOTE | 2021-12-19 19:35 | NUR ---
RN OPENING NOTE PATIENT IN BED AWAKE. A/O X4, MOSTLY BANGLADESHI SPEAKING, ABLE TO MAKE NEEDS KNOWN. ON RA, TOLERATING WELL. BREATHING EVEN AND UNLABORED. NO SIGN/SYMPTOMS OF RESPIRATORY DISTRESS. SHANTHI MIDLINE 18G, SL, INTACT AND PATENT. HILARIO AV FISTULA INTACT. THRILL AND BRUIT PRESENT. NO COMPLAINS OF PAIN OR DISCOMFORT AT THIS TIME. SAFETY MEASURES IN PLACE: BED IN LOWEST AND LOCKED POSITION, SIDE RAILS UP X2, AND CALL LIGHT WITHIN REACH. WILL MONITOR PATIENT CLOSELY.
[2021-12-19 20:00] VITALS: BP_SYST 105; BP_SYST 108; BP_DIAS 58
[2021-12-19] MEDS: SENNOSIDES 8.6 MG TABLET PO SCH ×2 (21:27→22:00)
[2021-12-19] MEDS: ATORVASTATIN 40 MG TABLET PO SCH (21:27)
--- NOTE | 2021-12-19 22:01 | NUR ---
RN NOTE PATIENT REFUSED SENNOKOT, RISK AND BENEFITS GIVEN. BS 114 MG/DL, NO COVERAGE GIVEN. SNACKS PROVIDED.
[2021-12-20] MEDS: MEROPENEM 500 MG in IV NS 0.9% 50 ML IV SCH ×2 (00:33→12:34)
[2021-12-20] MEDS: ACETAMINOPHEN 325 MG TABLET PO PRN ×2 (01:20→20:21)
--- NOTE | 2021-12-20 01:21 | NUR ---
TYLENOL GIVEN FOR MILD PAIN ON CATRACHITO FOOT, WILL REASSESS PATIENT'S PAIN AT A LATER TIME.
--- NOTE | 2021-12-20 05:17 | NUR ---
RN NOTE WOUND CARE RENDERED ON R AND L FOOT AND L FINGER
[2021-12-20] MEDS: BLOOD SUGAR DIAGNOSTIC 1 EACH STRIP VI SCH ×4 (06:40→21:23)
--- NOTE | 2021-12-20 06:47 | NUR ---
RN CLOSING NOTE PATIENT IN BED EYES CLOSED, EASILY AWAKENED. A/O X4, MOSTLY JAPANESE SPEAKING, ABLE TO MAKE NEEDS KNOWN. ON RA, TOLERATING WELL. BREATHING EVEN AND UNLABORED. NO SIGN/SYMPTOMS OF RESPIRATORY DISTRESS. SHANTHI MIDLINE 18G, SL, INTACT AND PATENT. HILARIO AV FISTULA INTACT, THRILL AND BRUIT PRESENT. NO COMPLAINS OF PAIN OR DISCOMFORT AT THIS TIME. PAIN MANAGED WITH TYLENOL. BS 116 MG/DL, NO COVERAGE GIVEN PER SLIDING SCALE. OFFERED SNACKS BUT REFUSED THEM AT THIS TIME. SAFETY MEASURES IN PLACE: BED IN LOWEST AND LOCKED POSITION, SIDE RAILS UP, AND CALL LIGHT WITHIN REACH. ALL NEEDS MET AND ATTENDED. ALL ORDERS CARRIED OUT. WILL ENDORSE TO DAY SHIFT NURSE FOR JUSTIN.
--- NOTE | 2021-12-20 07:51 | NUR ---
MS RN OPENING NOTE Patient in bed, awake. A/O x 3, Tamazight speaking. On room air, breathing evenly and unlabored. No SOB or s/s of distress noted. IV access on SHANTHI midline SL, intact and patent. Bilateral feet dressing c/d/i. Safety precautions in place: bed in low, locked position; siderails up x 2; call light within reach. Will continue to monitor.
[2021-12-20] MEDS: LINEZOLID 600 MG TABLET PO SCH ×2 (08:33→21:21)
[2021-12-20] MEDS: VIT B CMPLX 3/FA/VIT C/BIOTIN 1 TAB TABLET PO SCH (08:33)
[2021-12-20] MEDS: ZINC SULFATE 220 MG CAPSULE PO SCH (08:33)
[2021-12-20] MEDS: DOCUSATE SODIUM 100 MG CAPSULE PO SCH ×2 (08:34→17:39)
[2021-12-20] MEDS: SEVELAMER CARBONATE 800 MG TABLET PO SCH ×3 (08:34→17:39)
[2021-12-20] MEDS: ASCORBIC ACID 500 MG TABLET PO SCH (08:34)
[2021-12-20] MEDS: LEVOTHYROXINE SODIUM 25 MCG TABLET PO SCH (08:34)
[2021-12-20] MEDS: PANTOPRAZOLE 40 MG TABLET.DR PO SCH (08:34)
[2021-12-20] MEDS: CARVEDILOL 12.5 MG TABLET PO SCH ×2 (08:35→21:22)
[2021-12-20] MEDS: ISOSORBIDE DINITRATE (10MG) 10 MG TABLET PO SCH ×3 (08:35→17:39)
[2021-12-20] MEDS: PROSOURCE / PROSTAT (PYXIS) 30 ML UDC PO SCH (08:36)
[2021-12-20] MEDS: MULTIVIT W/MINERALS 1 TAB TABLET PO SCH (08:36)
[2021-12-20] MEDS: CALCIUM ACETATE 667 MG CAP/TAB PO SCH ×3 (08:36→17:39)
[2021-12-20] MEDS: DAKINS QUARTER STRENGTH (0.125%) 480 ML BOTTLE TOP SCH (08:36)
--- NOTE | 2021-12-20 11:15 | NUR ---
RN NOTE Per lab, patient has been refusing blood draw.
[2021-12-20] MEDS: INSULIN REGULAR, HUMAN 100 UNIT/ML 3 ML VIAL SQ PRN ×2 (11:49→18:08)
[2021-12-20] MEDS: CLOPIDOGREL BISULFATE 75 MG TABLET PO SCH (12:32)
--- NOTE | 2021-12-20 15:32 | NUR ---
RN NOTE Patient's colostomy bag replaced.
--- NOTE | 2021-12-20 18:57 | NUR ---
MS RN CLOSING NOTE Patient in bed, resting. A/O x 3, [place] speaking. Stable on room air, breathing evenly and unlabored. No SOB or s/s of distress noted. IV access on SHANTHI midline SL, intact and patent. Bilateral feet dressing c/d/i. Colostomy noted on RLQ, drained 50 cc of yellow colored liquid. Due meds given. All needs attended to. Safety precautions in place: bed in low, locked position; siderails up x 2; call light within reach. Will endorse to pulmonology physician nurse for JUSTIN.
--- NOTE | 2021-12-20 19:25 | NUR ---
RN OPENING NOTE PATIENT IN BED AWAKE. A/O X4, MOSTLY CYPRIOT SPEAKING, ABLE TO MAKE NEEDS KNOWN. ON RA, TOLERATING WELL. BREATHING EVEN AND UNLABORED. NO SIGN/SYMPTOMS OF RESPIRATORY DISTRESS. SHANTHI MIDLINE 18G, SL, INTACT AND PATENT. HLIARIO AV FISTULA INTACT. THRILL AND BRUIT PRESENT. PATIENT COMPLAINING OF MILD PAIN ON THE RIGHT FOOT. WILL MANAGE PAIN APPROPRIATELY. SAFETY MEASURES IN PLACE: BED IN LOWEST AND LOCKED POSITION, SIDE RAILS UP X2, AND CALL LIGHT WITHIN REACH. WILL MONITOR PATIENT CLOSELY.
[2021-12-20 20:00] VITALS: BP 122/49
--- NOTE | 2021-12-20 20:22 | NUR ---
TYLENOL GIVEN FOR 3/10 PAIN ON R FOOT, WILL REASSESS PATIENT'S PAIN LEVEL AT A LATER TIME
[2021-12-20] MEDS: ATORVASTATIN 40 MG TABLET PO SCH (21:21)
[2021-12-20] MEDS: SENNOSIDES 8.6 MG TABLET PO SCH (21:28)
--- NOTE | 2021-12-21 01:13 | NUR ---
RN NOTE DILAUDID X 1 ORDER GIVEN, PATIENT FELT RELIEF AFTER 15 MIN AFTER ADMIN.
[2021-12-21] MEDS: MEROPENEM 500 MG in IV NS 0.9% 50 ML IV SCH ×2 (01:21→13:56)
--- NOTE | 2021-12-21 04:30 | NUR ---
RN NOTE WOUND CARE PROVIDED ON CATRACHITO TOES AND R FOOT, BETADINE APPLIED ON L INDEX FINGER
[2021-12-21] MEDS: BLOOD SUGAR DIAGNOSTIC 1 EACH STRIP VI SCH ×4 (06:50→21:30)
--- NOTE | 2021-12-21 06:53 | NUR ---
RN CLOSING NOTE PATIENT IN BED EYES CLOSED, EASILY AWAKENED. A/O X4, ABLE TO MAKE NEEDS KNOWN. ON RA, TOLERATING WELL. BREATHING EVEN AND UNLABORED. NO SIGN/SYMPTOMS OF RESPIRATORY DISTRESS. SHANTHI MIDLINE 18G, SL, INTACT AND PATENT. HILARIO AV FISTULA INTACT, THRILL AND BRUIT PRESENT. NO COMPLAINS OF PAIN OR DISCOMFORT AT THIS TIME. PAIN MANAGED WITH TYLENOL. BS 107 MG/DL, NO COVERAGE GIVEN PER SLIDING SCALE. SAFETY MEASURES IN PLACE: BED IN LOWEST AND LOCKED POSITION, SIDE RAILS UP, AND CALL LIGHT WITHIN REACH. ALL NEEDS MET AND ATTENDED. ALL ORDERS CARRIED OUT. WILL ENDORSE TO DAY SHIFT NURSE FOR JUSTIN.
--- NOTE | 2021-12-21 07:30 | NUR ---
MS RN OPENING NOTS: RECEIVED PATIENT IN BED ASLEEP, EASILY AROUSED WITH STIMULI. A/O X. ABLE TO MAKE NEEDS KNOWN NO SOB OR CARDIAC DISTRESS NOTED ON ROOM AIR AND TOLERATED WELL. AFEBRILE. NOTED WITH IV ACCESS ON SHANTHI G#18 PATENT, INTACT AND LUSHING WELL, SALINE LOCKED. WITH HILARIO AV FISTULA. SAFETY PRECAUTION MAINTAINED: BED IN LOWEST AND LOCKED POSITION, SIDE RAILS UP X 2. CALL LIGHT IN EASY REACH FOR HELP/ASSISTANCE. WILL MONITOR FOR ANY SIGNIFICANT CHANGES AND WILL REPORT TO
[2021-12-21] MEDS: PANTOPRAZOLE 40 MG TABLET.DR PO SCH (07:44)
[2021-12-21] MEDS: SEVELAMER CARBONATE 800 MG TABLET PO SCH ×3 (07:44→17:16)
[2021-12-21] MEDS: LEVOTHYROXINE SODIUM 25 MCG TABLET PO SCH (07:44)
[2021-12-21] MEDS: CALCIUM ACETATE 667 MG CAP/TAB PO SCH ×3 (07:45→17:16)
[2021-12-21 08:00] VITALS: BP 153/47
[2021-12-21] MEDS: ZINC SULFATE 220 MG CAPSULE PO SCH (09:00)
[2021-12-21] MEDS: LINEZOLID 600 MG TABLET PO SCH ×2 (09:00→21:23)
[2021-12-21] MEDS: VIT B CMPLX 3/FA/VIT C/BIOTIN 1 TAB TABLET PO SCH (09:00)
[2021-12-21] MEDS: ISOSORBIDE DINITRATE (10MG) 10 MG TABLET PO SCH ×3 (09:00→17:17)
[2021-12-21] MEDS: DOCUSATE SODIUM 100 MG CAPSULE PO SCH ×2 (09:00→17:16)
[2021-12-21] MEDS: ASCORBIC ACID 500 MG TABLET PO SCH (09:00)
[2021-12-21] MEDS: DAKINS QUARTER STRENGTH (0.125%) 480 ML BOTTLE TOP SCH (09:00)
[2021-12-21] MEDS: PROSOURCE / PROSTAT (PYXIS) 30 ML UDC PO SCH (09:00)
[2021-12-21] MEDS: MULTIVIT W/MINERALS 1 TAB TABLET PO SCH (09:00)
[2021-12-21] MEDS: CARVEDILOL 12.5 MG TABLET PO SCH ×2 (09:00→21:23)
--- NOTE | 2021-12-21 09:44 | NUR ---
RN NOTES: PATIENT ONGOING DIALYSIS. PATIENT STABLE.
[2021-12-21 10:46] LABS: BASOPHILS # (AUTO) 0.1 K/uL (0.0-0.2); BASOPHILS % (AUTO) 0.8 % (0.0-2.0); EOSINOPHILS % (AUTO) 2.9 % (0.0-6.0); HEMATOCRIT 31 % (39-51); HEMOGLOBIN 9.9 g/dL (13.5-17.5); LYMPHOCYTES # (AUTO) 1.7 K/uL (0.8-4.8); LYMPHOCYTES % (AUTO) 18.8 % (20.0-44.0); MEAN CORPUSCULAR HGB CONC 33 g/dl (31.0-36.0); MEAN CORPUSCULAR VOLUME 89 fL (80-96); MONOCYTES % (AUTO) 10.9 % (2.0-12.0); NEUTROPHILS # (AUTO) 6.1 K/uL (1.8-8.9); NEUTROPHILS % (AUTO) 66.6 % (43.0-81.0); PLATELET COUNT (AUTO) 222 K/uL (150-450); RED BLOOD CELL COUNT(AUTO) 3.44 MIL/uL (4.5-6.0); WHITE BLOOD COUNT (AUTO) 9.2 K/uL (4.3-11.0)
[2021-12-21 11:00] LABS: ALBUMIN 3.4 g/dL (3.4-5.0); BILIRUBIN,TOTAL 0.4 mg/dL (0.2-1.0); CREATININE 5.2 mg/dL (0.6-1.3); POTASSIUM 3.6 mmol/L (3.5-5.1); TOTAL PROTEIN, SERUM 8.8 g/dL (6.4-8.2)
--- NOTE | 2021-12-21 11:50 | NUR ---
RN NOTES: S/P DIALYSIS, UF= 1500ML. VS TAKEN: BP 150/67 MMHG, HR 78, RR 18,
--- NOTE | 2021-12-21 12:15 | NUR ---
RN NOTES: SEEN AND EXAMINED BY WOUND DRFelton ORDERED: PATIENT NPO POST [place], FOR SURGERY RIGHT TRANSMETATARSAL AMPUTATION WITH ACHILLES TENDON LENGTHENING. WOUND ON RIGHT FOOT CLEANED,APPLIED BETADINE AND COVERED WITH DRY DRESSING AND WRAPPED WITH ROLLED GAUZE.
--- NOTE | 2021-12-21 13:50 | NUR ---
RN NOTES: DR MITCHELL ORDERED TO HOLD PLAVIX TODAY AND RESUME AFTER SURGERY. ORDERS NOTED AND CARRIED OUT.
--- NOTE | 2021-12-21 14:48 | NUR ---
RN NOTES: RECEIVED ORDER FROM DR GRAFF (ANESTHESIOLOGIST), NPO POST [place], CONSENT FOR SURGERY, TYPE SCREEN. ORDERS NOTED AND CARRIED OUT.
[2021-12-21 16:00] VITALS: BP 151/41
--- NOTE | 2021-12-21 16:13 | NUR ---
RN NOTES: PATIENT REFUSED BLOOD DRAW FOR TYPE AND SCREEN, INFORMED DR GRAFF AND PER DR GRAFF "ITS OKAY". HGB LEVEL 9.9MG/DL
[2021-12-21] MEDS: ACETAMINOPHEN 325 MG TABLET PO PRN (17:16)
[2021-12-21] MEDS: INSULIN REGULAR, HUMAN 100 UNIT/ML 3 ML VIAL SQ PRN (17:21)
--- NOTE | 2021-12-21 19:30 | NUR ---
MS RN OPENING NOTE RECEIVED PT AWAKE IN BED. A/O X 4 AND SERBIAN SPEAKING. PT STABLE ON ROOM AIR. NO SOB OR S/S OF RESPIRATORY DISTRESS NOTED. BREATHING EVEN AND UNLABORED. IV ACCESS ON SHANTHI G#18, INTACT AND PATENT. WITH HILARIO AV FISTULA. SAFETY PRECAUTIONS IN PLACE. BED IN LOWEST LOCKED POSITION, HOB ELEVATED, SIDE RAILS UP X2, AND CALL LIGHT AND TABLE WITHIN REACH. ALL NEEDS MET AT THIS TIME.
--- NOTE | 2021-12-21 19:38 | NUR ---
MS RN CLOSING NOTES: PATIENT IN BED AWAKE. A/O X 4. MALAGASY SPEAKING.ABLE TO MAKE NEEDS KNOWN NO SOB OR CARDIAC DISTRESS NOTED ON ROOM AIR AND TOLERATED WELL. AFEBRILE. NOTED WITH IV ACCESS ON SHANTHI G#18 PATENT, INTACT AND FLUSHING WELL, SALINE LOCKED. WITH HILARIO AV FISTULA. DUE AND AVAILABLE MEDS GIVEN ORDERED, WOUND CARE TREATMENT DONE AND TOLERATED WELL. SAFETY PRECAUTION MAINTAINED: BED IN LOWEST AND LOCKED POSITION, SIDE RAILS UP X 2. CALL LIGHT IN EASY REACH FOR HELP/ASSISTANCE. WILL MONITOR FOR ANY SIGNIFICANT CHANGES AND WILL REPORT TO MD.ENDORSED TO FLARER NURSE FOR JUSTIN.
[2021-12-21 20:00] VITALS: BP 138/60
[2021-12-21] MEDS: ATORVASTATIN 40 MG TABLET PO SCH (21:23)
[2021-12-21] MEDS: SENNOSIDES 8.6 MG TABLET PO SCH (21:30)
--- NOTE | 2021-12-21 21:30 | NUR ---
RN NOTE PT REFUSED SENNA. EXPLAINED RISKS AND BENEFITS. PT STILL REFUSED. MEDICATION RETURNED TO [facility].
[2021-12-22] MEDS: MEROPENEM 500 MG in IV NS 0.9% 50 ML IV SCH ×2 (01:06→12:50)
[2021-12-22] MEDS: INSULIN REGULAR, HUMAN 100 UNIT/ML 3 ML VIAL SQ PRN ×2 (06:41→18:31)
[2021-12-22] MEDS: BLOOD SUGAR DIAGNOSTIC 1 EACH STRIP VI SCH ×4 (06:41→21:51)
--- NOTE | 2021-12-22 06:44 | NUR ---
MS RN CLOSING NOTE PT AWAKE IN BED. A/O X 4 AND BERMUDIAN SPEAKING. PT STABLE ON ROOM AIR. NO SOB OR S/S OF RESPIRATORY DISTRESS NOTED. BREATHING EVEN AND UNLABORED. IV ACCESS ON SHANTHI G#18, INTACT AND PATENT. WITH HILARIO AV FISTULA, INTACT AND PATENT. KEPT NPO AFTER MIDNIGHT. ALL DUE MEDS GIVEN ORDERED. SAFETY PRECAUTIONS IN PLACE AT ALL TIMES. CONSENTS SIGNED FOR SURGERY TODAY. BED IN LOWEST LOCKED POSITION, HOB ELEVATED, SIDE RAILS UP X2, AND CALL LIGHT AND TABLE WITHIN REACH. ALL NEEDS MET AT THIS TIME AND WILL ENDORSE TO ONCOMING NURSE FOR JUSTIN.
--- NOTE | 2021-12-22 07:00 | NUR ---
MS RN OPENING NOTES PATIENT LAYING IN BED, A/O X 4, ABLE TO MAKE NEEDS KNOWN. AUSTRALIAN SPEAKING. TOLERATING WELL ON ROOM AIR WITH NO S/S RESPIRATORY DISTRESS. NO COMPLAINTS OF PAIN OR DISCOMFORT AT THIS TIME. CURRENTLY NPO STATUS DUE TO UPCOMING SURGERY. SHANTHI # 18 G SL CLEAN, INTACT, AND FLUSHING WELL. SAFETY MEASURES IN PLACE: BED IN LOWEST LOCKED POSITION, SIDE RAILS UP X 2, CALL LIGHT WITHIN REACH. WILL CONTINUE TO MONITOR.
[2021-12-22] MEDS: PANTOPRAZOLE 40 MG TABLET.DR PO SCH (07:30)
[2021-12-22] MEDS: LEVOTHYROXINE SODIUM 25 MCG TABLET PO SCH (07:30)
[2021-12-22] MEDS: CALCIUM ACETATE 667 MG CAP/TAB PO SCH ×3 (07:35→18:17)
[2021-12-22] MEDS: SEVELAMER CARBONATE 800 MG TABLET PO SCH ×3 (07:35→18:17)
[2021-12-22] MEDS: PROSOURCE / PROSTAT (PYXIS) 30 ML UDC PO SCH (08:09)
[2021-12-22] MEDS: ASCORBIC ACID 500 MG TABLET PO SCH (08:09)
[2021-12-22] MEDS: VIT B CMPLX 3/FA/VIT C/BIOTIN 1 TAB TABLET PO SCH (08:09)
[2021-12-22] MEDS: MULTIVIT W/MINERALS 1 TAB TABLET PO SCH (08:09)
[2021-12-22] MEDS: ISOSORBIDE DINITRATE (10MG) 10 MG TABLET PO SCH ×3 (08:09→17:05)
[2021-12-22] MEDS: CARVEDILOL 12.5 MG TABLET PO SCH ×2 (08:09→21:27)
[2021-12-22] MEDS: DOCUSATE SODIUM 100 MG CAPSULE PO SCH ×2 (08:09→17:05)
[2021-12-22] MEDS: DAKINS QUARTER STRENGTH (0.125%) 480 ML BOTTLE TOP SCH (08:10)
[2021-12-22] MEDS: LINEZOLID 600 MG TABLET PO SCH ×2 (08:10→21:26)
[2021-12-22] MEDS: ZINC SULFATE 220 MG CAPSULE PO SCH (08:10)
[2021-12-22 08:31] VITALS: BP 142/56
[2021-12-22] MEDS ORDERED: BUPIVACAINE 0.5 % PF 150 MG/30 ML VIAL ONE (11:14)
[2021-12-22] MEDS ORDERED: LIDOCAINE 1% INJ 50 ML MDV IJ ONE (11:14)
[2021-12-22] MEDS ORDERED: FENTANYL PF 100MCG/2ML AMPUL ONE (11:38)
[2021-12-22 14:22] LABS: BASOPHILS # (AUTO) 0.1 K/uL (0.0-0.2); BASOPHILS % (AUTO) 0.7 % (0.0-2.0); EOSINOPHILS % (AUTO) 3.2 % (0.0-6.0); HEMATOCRIT 30 % (39-51); HEMOGLOBIN 9.7 g/dL (13.5-17.5); LYMPHOCYTES # (AUTO) 3.7 K/uL (0.8-4.8); LYMPHOCYTES % (AUTO) 32.1 % (20.0-44.0); MEAN CORPUSCULAR HGB CONC 32 g/dl (31.0-36.0); MEAN CORPUSCULAR VOLUME 89 fL (80-96); MONOCYTES # (AUTO) 1.6 K/uL (0.1-1.30); MONOCYTES % (AUTO) 13.3 % (2.0-12.0); NEUTROPHILS # (AUTO) 5.9 K/uL (1.8-8.9); NEUTROPHILS % (AUTO) 50.7 % (43.0-81.0); PLATELET COUNT (AUTO) 228 K/uL (150-450); RED BLOOD CELL COUNT(AUTO) 3.37 MIL/uL (4.5-6.0); WHITE BLOOD COUNT (AUTO) 11.7 K/uL (4.3-11.0)
[2021-12-22 15:47] VITALS: BP 158/56
--- NOTE | 2021-12-22 19:00 | NUR ---
MS DEVICE TEST ENGINEER NOTES PATIENT LAYING IN BED, A/O X 4, ABLE TO MAKE NEEDS KNOWN. MALAY SPEAKING. TOLERATING WELL ON ROOM AIR WITH NO S/S RESPIRATORY DISTRESS. NO COMPLAINTS OF PAIN OR DISCOMFORT AT THIS TIME. PATIENT NOW ON CONSISTENT CARBOHYDRATE DIET. SHANTHI # 18 G SL CLEAN, INTACT, AND FLUSHING WELL. HILARIO SHUNT IN PLACE WITH THRILL AND BRUIT INTACT. ALL NEEDS MET. SAFETY MEASURES IN PLACE: BED IN LOWEST LOCKED POSITION, SIDE RAILS UP X 2, CALL LIGHT WITHIN REACH. WILL ENDORSE TO STORE ADMINISTRATIVE ASSISTANT FOR JUSTIN. Addendum: 12/22/21 at 1938 by GERMAN DANIELLE RN DISREGARD NOTE
--- NOTE | 2021-12-22 19:04 | NUR ---
MS RN CLOSING NOTES PATIENT LAYING IN BED, A/O X 4, ABLE TO MAKE NEEDS KNOWN. [place] SPEAKING. TOLERATING WELL ON ROOM AIR WITH NO S/S RESPIRATORY DISTRESS. NO COMPLAINTS OF PAIN OR DISCOMFORT AT THIS TIME. PATIENT NOW ON CONSISTENT CARBOHYDRATE DIET. SHANTHI # 18 G SL CLEAN, INTACT, AND FLUSHING WELL. HILARIO SHUNT IN PLACE WITH THRILL AND BRUIT INTACT. ALL NEEDS MET. SAFETY MEASURES IN PLACE: BED IN LOWEST LOCKED POSITION, SIDE RAILS UP X 2, CALL LIGHT WITHIN REACH. WILL ENDORSE TO ALMOND ROASTER FOR JUSTIN.
--- NOTE | 2021-12-22 19:30 | NUR ---
MS RN OPENING NOTE RECEIVED PT AWAKE IN BED. A/O X 4 AND AZERI SPEAKING. PT STABLE ON ROOM AIR. NO SOB OR S/S OF RESPIRATORY DISTRESS NOTED. BREATHING EVEN AND UNLABORED. IV ACCESS ON SHANTHI G#18, INTACT AND PATENT. WITH HILARIO AV FISTULA. R FOOT DRESSING C/D/I. SAFETY PRECAUTIONS IN PLACE. BED IN LOWEST LOCKED POSITION, HOB ELEVATED, SIDE RAILS UP X2, AND CALL LIGHT AND TABLE WITHIN REACH. ALL NEEDS MET AT THIS TIME.
[2021-12-22 20:00] VITALS: BP 160/41
[2021-12-22] MEDS: ATORVASTATIN 40 MG TABLET PO SCH (21:26)
[2021-12-22] MEDS: SENNOSIDES 8.6 MG TABLET PO SCH (21:27)
[2021-12-22] MEDS: HYDROCODONE/APAP 10/325MG TABLET PO PRN (21:36)
--- NOTE | 2021-12-22 21:37 | NUR ---
RN NOTE PT COMPLAINED OF PAIN 7/10 OF RIGHT FOOT. PT STATED THAT TYLENOL DID NOT HELP REDUCE HIS PAIN. INFORMED LEAFLET OR NEWSPAPER DELIVERER KE WITH NEW ORDERS NOTED AND CARRIED OUT. ADMINISTERED NORCO 10-325 MG FOR PAIN ORDERED. MADE COMFORTABLE IN BED. ALL OTHER NEEDS MET AT THIS TIME.
[2021-12-23] MEDS: MEROPENEM 500 MG in IV NS 0.9% 50 ML IV SCH ×2 (00:01→12:41)
[2021-12-23] MEDS: ACETAMINOPHEN 325 MG TABLET PO PRN ×2 (00:15→11:55)
[2021-12-23] MEDS: HYDROCODONE/APAP 10/325MG TABLET PO PRN ×2 (06:23→12:40)
--- NOTE | 2021-12-23 06:23 | NUR ---
RN NOTE PT COMPLAINED OF PAIN 7/10 OF RIGHT FOOT. ADMINISTERED NORCO 10-325 MG FOR PAIN ORDERED. MADE COMFORTABLE IN BED. ALL OTHER NEEDS MET AT THIS TIME.
--- NOTE | 2021-12-23 06:29 | NUR ---
MS RN CLOSING NOTE PT AWAKE IN BED. A/O X 4 AND TUVALUAN SPEAKING. PT STABLE ON ROOM AIR. NO SOB OR S/S OF RESPIRATORY DISTRESS NOTED. BREATHING EVEN AND UNLABORED. IV ACCESS ON SHANTHI G#18, INTACT AND PATENT. WITH HILARIO AV FISTULA, INTACT AND PATENT. R FOOT DRESSING C/D/I, OFFLOADED. ALL DUE MEDS GIVEN ORDERED. SAFETY PRECAUTIONS IN PLACE AT ALL TIMES. BED IN LOWEST LOCKED POSITION, HOB ELEVATED, SIDE RAILS UP X2, AND CALL LIGHT AND TABLE WITHIN REACH. ALL NEEDS MET AT THIS TIME AND WILL ENDORSE TO ONCOMING NURSE FOR JUSTIN.
[2021-12-23] MEDS: BLOOD SUGAR DIAGNOSTIC 1 EACH STRIP VI SCH ×4 (06:31→22:16)
--- NOTE | 2021-12-23 07:00 | NUR ---
MS RN OPENING NOTE PATIENT LAYING IN BED, A/O X 4, ABLE TO MAKE NEEDS KNOWN. TOLERATING WELL ON ROOM AIR WITH NO S/S RESPIRATORY DISTRESS. NO COMPLAINTS OF PAIN OR DISCOMFORT AT THIS TIME. SHANTHI #18G SL CLEAN, INTACT, AND FLUSHING WELL. HILARIO AV FISTULA PRESENT WITH THRILL AND BRUIT NOTED. R FOOT DRESSING C/D/I, OFFLOADED. SAFETY MEASURES IN PLACE: BED IN LOWEST LOCKED POSITION, SIDE RAILS UP X 2, CALL LIGHT WITHIN REACH. WILL CONTINUE TO MONITOR.
[2021-12-23] MEDS: LEVOTHYROXINE SODIUM 25 MCG TABLET PO SCH (07:35)
[2021-12-23] MEDS: CALCIUM ACETATE 667 MG CAP/TAB PO SCH ×3 (07:35→17:12)
[2021-12-23] MEDS: PANTOPRAZOLE 40 MG TABLET.DR PO SCH (07:35)
[2021-12-23] MEDS: SEVELAMER CARBONATE 800 MG TABLET PO SCH ×4 (07:35→17:27)
[2021-12-23 08:00] VITALS: BP 148/42
[2021-12-23] MEDS: VIT B CMPLX 3/FA/VIT C/BIOTIN 1 TAB TABLET PO SCH (09:46)
[2021-12-23] MEDS: ASCORBIC ACID 500 MG TABLET PO SCH (09:46)
[2021-12-23] MEDS: MULTIVIT W/MINERALS 1 TAB TABLET PO SCH (09:46)
[2021-12-23] MEDS: CARVEDILOL 12.5 MG TABLET PO SCH ×2 (09:46→20:40)
[2021-12-23] MEDS: DOCUSATE SODIUM 100 MG CAPSULE PO SCH ×2 (09:47→17:12)
[2021-12-23] MEDS: ISOSORBIDE DINITRATE (10MG) 10 MG TABLET PO SCH ×3 (09:47→17:00)
[2021-12-23] MEDS: LINEZOLID 600 MG TABLET PO SCH ×2 (09:47→20:40)
[2021-12-23] MEDS: ZINC SULFATE 220 MG CAPSULE PO SCH (09:47)
[2021-12-23] MEDS: PROSOURCE / PROSTAT (PYXIS) 30 ML UDC PO SCH (09:48)
[2021-12-23] MEDS: INSULIN REGULAR, HUMAN 100 UNIT/ML 3 ML VIAL SQ PRN (12:43)
[2021-12-23 16:00] VITALS: BP 175/47
[2021-12-23 16:47] LABS: BASOPHILS # (AUTO) 0.1 K/uL (0.0-0.2); BASOPHILS % (AUTO) 0.6 % (0.0-2.0); EOSINOPHILS % (AUTO) 2.2 % (0.0-6.0); HEMATOCRIT 24 % (39-51); HEMOGLOBIN 7.9 g/dL (13.5-17.5); LYMPHOCYTES # (AUTO) 2.8 K/uL (0.8-4.8); LYMPHOCYTES % (AUTO) 28.6 % (20.0-44.0); MEAN CORPUSCULAR HGB CONC 34 g/dl (31.0-36.0); MEAN CORPUSCULAR VOLUME 87 fL (80-96); MONOCYTES # (AUTO) 0.8 K/uL (0.1-1.30); MONOCYTES % (AUTO) 7.8 % (2.0-12.0); NEUTROPHILS # (AUTO) 5.9 K/uL (1.8-8.9); NEUTROPHILS % (AUTO) 60.8 % (43.0-81.0); PLATELET COUNT (AUTO) 191 K/uL (150-450); WHITE BLOOD COUNT (AUTO) 9.7 K/uL (4.3-11.0)
[2021-12-23 17:02] LABS: CALCIUM, SERUM 8.8 mg/dL (8.5-10.1); MAGNESIUM 2.4 mg/dL (1.8-2.4); POTASSIUM 4.8 mmol/L (3.5-5.1)
[2021-12-23 17:12] LABS: CREATININE 8.9 mg/dL (0.6-1.3)
[2021-12-23 18:26] LABS: BAND % (MANUAL) 1 % (0.0-5.0); EOSINOPHILS % (MANUAL) 2 % (0-4); LYMPHOCYTES % (MANUAL) 23 % (16-48); MONOCYTES % (MANUAL) 8 % (0-11.0); NEUTROPHILS % (MANUAL) 66 (42-76)
--- NOTE | 2021-12-23 19:00 | NUR ---
MS RAAD CLOSING NOTES PATIENT LAYING IN BED, A/O X 4, ABLE TO MAKE NEEDS KNOWN. TOLERATING WELL ON ROOM AIR WITH NO S/S RESPIRATORY DISTRESS. NO COMPLAINTS OF PAIN OR DISCOMFORT AT THIS TIME. SHANTHI #18G SL CLEAN, INTACT, AND FLUSHING WELL. HILARIO AV FISTULA PRESENT WITH THRILL AND BRUIT NOTED. R FOOT DRESSING C/D/I, OFFLOADED. ALL NEEDS MET. SAFETY MEASURES IN PLACE: BED IN LOWEST LOCKED POSITION, SIDE RAILS UP X 2, CALL LIGHT WITHIN REACH. WILL ENDORSE TO MACHINE ROOM ENGINEER FOR JUSTIN. Addendum: 12/23/21 at 2033 by GERMAN DANIELLE RN PRN NORCO 10/325 MG PO ADMINISTERED AT 1240 FOR 8/10 R LEG PAIN. PATIENT WAS MONITORED AND TREATED FOR PAIN THROUGHOUT SHIFT.
--- NOTE | 2021-12-23 19:39 | NUR ---
MS RN OPENING NOTE RECEIVED PATIENT IN BED. A/OX4. STARTING ON HIS DINNER. NO S/S OF APPARENT DISTRESS IN ROOM AIR. DENIES PAIN NOR DISCOMFORT AT THIS TIME. NO FLUIDS RUNNING AT THIS TIME. ENCOURAGED WITH THE USE OF CALL LIGHT. SAFETY IN PLACE. BILATERAL LEGS NOTED TO HAVE DRESSING WITH RIGHT LEG IN ANKIT WRAP. L. AV FISTULA BRUIT AND THRILL FELT AND AUSCULTATED. WILL CONTINUE WITH PATIENT'S PLAN OF CARE.
[2021-12-23 20:00] VITALS: BP 112/65
[2021-12-23] MEDS: MORPHINE SULFATE INJ 2 MG/ML DISP.SYRIN IV PRN (20:46)
[2021-12-23] MEDS: SENNOSIDES 8.6 MG TABLET PO SCH (22:00)
[2021-12-23] MEDS: ATORVASTATIN 40 MG TABLET PO SCH (22:09)
[2021-12-23] MEDS: *INSULIN REGULAR(HUMULIN R)HUM 100 UNIT/ML VIAL SQ PRN (22:16)
--- NOTE | 2021-12-23 22:20 | NUR ---
MS RN NOTE- NON-ADMIN PATIENT REFUSED SCHEDULED 2200 [place] AND INSULIN. BLOOD SUGAR 150. PER PATIENT IT GOES DOWN DRASTICALLY IN THE MORNING WITHOUT INSULIN.
[2021-12-24] MEDS: HYDROCODONE/APAP 10/325MG TABLET PO PRN ×3 (00:04→16:16)
[2021-12-24] MEDS: MEROPENEM 500 MG in IV NS 0.9% 50 ML IV SCH ×3 (00:55→12:09)
--- NOTE | 2021-12-24 01:29 | NUR ---
MS RN NOTE RECHECKED PATIENT'S TEMPERATURE 99.4. WILL CONTINUE TO MONITOR.
[2021-12-24] MEDS: MORPHINE SULFATE INJ 2 MG/ML DISP.SYRIN IV PRN (05:29)
--- NOTE | 2021-12-24 06:42 | NUR ---
PATIENT REFUSED AM LAB DRAW. WAS UNABLE TO GET BLOOD FROM HIS MIDLINE WELL. 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
--- NOTE | 2021-12-24 06:43 | NUR ---
MS RN CLOSING NOTE PATIENT IN BED, A/OX4. NO S/S OF APPARENT DISTRESS IN ROOM AIR. PAIN MANAGED WITH MEDICATIONS. NO FLUIDS RUNNING AT THIS TIME. ALL NEEDS ATTENDED. COLOSTOMY BAG CHANGED. WOUND TX RENDERED. SAFETY KEPT IN PLACE THE WHOLE SHIFT. WILL ENDORSE TO MORNING SHIFT RN FOR CONTINUITY OF CARE.
--- NOTE | 2021-12-24 07:30 | NUR ---
MS RN OPENING NOTES RECEIVED PATIENT LYING DOWN COMFORTABLY IN BED, A/OX4. NO S/S OF APPARENT DISTRESS IN ROOM AIR. NO FLUIDS RUNNING AT THIS TIME. COLOSTOMY BAG IN PLACE. SURGICAL SITE CLEAN, DRY AND NO SIGNS OF BLEEDING. SAFETY MEASURES ARE INITIATED. WILL CONTINUE TO MORNING FOR CONTINUITY OF CARE.
[2021-12-24] MEDS: BLOOD SUGAR DIAGNOSTIC 1 EACH STRIP VI SCH ×4 (07:39→22:00)
[2021-12-24 08:00] VITALS: BP 136/40
[2021-12-24] MEDS: CALCIUM ACETATE 667 MG CAP/TAB PO SCH ×3 (08:11→18:05)
[2021-12-24] MEDS: LEVOTHYROXINE SODIUM 25 MCG TABLET PO SCH (08:11)
[2021-12-24] MEDS: ZINC SULFATE 220 MG CAPSULE PO SCH (08:12)
[2021-12-24] MEDS: SEVELAMER CARBONATE 800 MG TABLET PO SCH ×3 (08:12→18:05)
[2021-12-24] MEDS: ASCORBIC ACID 500 MG TABLET PO SCH (08:13)
[2021-12-24] MEDS: ISOSORBIDE DINITRATE (10MG) 10 MG TABLET PO SCH ×3 (08:13→16:17)
[2021-12-24] MEDS: CARVEDILOL 12.5 MG TABLET PO SCH ×2 (08:13→21:23)
[2021-12-24] MEDS: VIT B CMPLX 3/FA/VIT C/BIOTIN 1 TAB TABLET PO SCH (08:14)
[2021-12-24] MEDS: PANTOPRAZOLE 40 MG TABLET.DR PO SCH (08:14)
[2021-12-24] MEDS: DOCUSATE SODIUM 100 MG CAPSULE PO SCH ×2 (08:14→16:18)
[2021-12-24] MEDS: PROSOURCE / PROSTAT (PYXIS) 30 ML UDC PO SCH (08:14)
[2021-12-24] MEDS: MULTIVIT W/MINERALS 1 TAB TABLET PO SCH (08:14)
[2021-12-24] MEDS: LINEZOLID 600 MG TABLET PO SCH ×2 (08:18→21:22)
[2021-12-24] MEDS: INSULIN REGULAR, HUMAN 100 UNIT/ML 3 ML VIAL SQ PRN (13:13)
[2021-12-24 16:00] VITALS: BP 113/58
--- NOTE | 2021-12-24 19:30 | NUR ---
MS RN CLOSING NOTES PATIENT LAYING IN BED, A/O X 4. NO S/S RESPIRATORY DISTRESS AND TOLERATING WELL ON ROOM AIR. PAIN FOR THE ENTIRE SHIFT WAS WELL CONTROLLED. SHANTHI #18G SL CLEAN, INTACT, AND FLUSHING WELL. HILARIO AV FISTULA PRESENT WITH THRILL AND BRUIT NOTED. R FOOT DRESSING C/D/I. ABLE TO MAKE NEEDS KNOWN AND MET. SAFETY MEASURES IN PLACE: BED IN LOWEST LOCKED POSITION, SIDE RAILS UP X 2, CALL LIGHT WITHIN REACH. WILL ENDORSE TO PAINT FORMULATOR FOR JUSTIN.
[2021-12-24] MEDS: ATORVASTATIN 40 MG TABLET PO SCH (21:23)
[2021-12-24] MEDS: SENNOSIDES 8.6 MG TABLET PO SCH (21:23)
[2021-12-25] MEDS: MEROPENEM 500 MG in IV NS 0.9% 50 ML IV SCH ×2 (00:38→13:21)
[2021-12-25 01:01] VITALS: BP 132/43
[2021-12-25] MEDS: BLOOD SUGAR DIAGNOSTIC 1 EACH STRIP VI SCH ×4 (06:14→22:03)
--- NOTE | 2021-12-25 06:19 | NUR ---
MS RN CLOSING NOTES PATIENT LAYING IN BED SLEEPING BUT EASY TO AROUSED.AMARJIT.WELL ON RM AIR NO SIGN SOB DISTRESS NOTED.NO COMPLAIN OF PAIN/DISCOMFORT DURING SHIFT. SHANTHI #18G SL CLEAN, INTACT, AND FLUSHING WELL. HILARIO AV FISTULA PRESENT WITH THRILL AND BRUIT NOTED.ALL DUE MEDS GIVEN PO ORDER.NEEDS ATTENDED.SAFETY MEASURES IN PLACE: BED IN LOWEST LOCKED POSITION, SIDE RAILS UP X 2, CALL LIGHT WITHIN REACH. WILL ENDORSE TO US CUSTOMS AND BORDER OFFICER FOR JUSTIN.
[2021-12-25 08:24] VITALS: BP 138/48
[2021-12-25] MEDS: SEVELAMER CARBONATE 800 MG TABLET PO SCH ×3 (09:41→17:10)
[2021-12-25] MEDS: MULTIVIT W/MINERALS 1 TAB TABLET PO SCH (09:41)
[2021-12-25] MEDS: LINEZOLID 600 MG TABLET PO SCH ×2 (09:42→20:55)
[2021-12-25] MEDS: CALCIUM ACETATE 667 MG CAP/TAB PO SCH ×3 (09:42→17:10)
[2021-12-25] MEDS: LEVOTHYROXINE SODIUM 25 MCG TABLET PO SCH (09:42)
[2021-12-25] MEDS: VIT B CMPLX 3/FA/VIT C/BIOTIN 1 TAB TABLET PO SCH (09:42)
[2021-12-25] MEDS: PANTOPRAZOLE 40 MG TABLET.DR PO SCH (09:42)
[2021-12-25] MEDS: DOCUSATE SODIUM 100 MG CAPSULE PO SCH ×2 (09:42→16:46)
[2021-12-25] MEDS: CARVEDILOL 12.5 MG TABLET PO SCH ×2 (09:43→20:55)
[2021-12-25] MEDS: ISOSORBIDE DINITRATE (10MG) 10 MG TABLET PO SCH ×3 (09:44→16:46)
[2021-12-25] MEDS: ZINC SULFATE 220 MG CAPSULE PO SCH (09:44)
[2021-12-25] MEDS: ASCORBIC ACID 500 MG TABLET PO SCH (09:44)
[2021-12-25] MEDS: PROSOURCE / PROSTAT (PYXIS) 30 ML UDC PO SCH (09:44)
[2021-12-25] MEDS: HYDROCODONE/APAP 10/325MG TABLET PO PRN (09:47)
[2021-12-25] MEDS: INSULIN REGULAR, HUMAN 100 UNIT/ML 3 ML VIAL SQ PRN ×2 (11:20→17:34)
[2021-12-25 16:26] VITALS: BP 114/48
[2021-12-25] MEDS: ACETAMINOPHEN 325 MG TABLET PO PRN (17:56)
--- NOTE | 2021-12-25 19:58 | NUR ---
MS RN CLOSING NOTES PATIENT LAYING IN BED, A/O X 4. NO S/S RESPIRATORY DISTRESS AND TOLERATING WELL ON ROOM AIR. PAIN FOR THE ENTIRE SHIFT WAS WELL CONTROLLED. SHANTHI #18G SL CLEAN, INTACT, AND FLUSHING WELL. HILARIO AV FISTULA PRESENT WITH THRILL AND BRUIT NOTED. R FOOT DRESSING C/D/I. ABLE TO MAKE NEEDS KNOWN AND MET. PATIENT HAD A FEVER, TEMPERATURE WAS 100.1 @1750 AND IT WENT DOWN TO 99.8 @ 1840 AFTER GIVEN TYLENOL. PATIENT HAD BEEN REFUSING NURSING CARE WELL LAB DRAWS X3. SAFETY MEASURES IN PLACE: BED IN LOWEST LOCKED POSITION, SIDE RAILS UP X 2, CALL LIGHT WITHIN REACH. WILL ENDORSE TO PRODUCTION STATISTICAL CLERK FOR JUSTIN.
[2021-12-25 20:00] VITALS: BP 134/58
--- NOTE | 2021-12-25 20:01 | NUR ---
MS RN CLOSING NOTES PATIENT LAYING IN BED, A/O X 4. NO S/S RESPIRATORY DISTRESS AND TOLERATING WELL ON ROOM AIR. PAIN FOR THE ENTIRE SHIFT WAS WELL CONTROLLED. SHANTHI #18G SL CLEAN, INTACT, AND FLUSHING WELL. HILARIO AV FISTULA PRESENT WITH THRILL AND BRUIT NOTED. R FOOT DRESSING C/D/I. ABLE TO MAKE NEEDS KNOWN AND MET. PATIENT HAD BEEN REFUSING NURSING CARE WELL LAB DRAWS X3 WILL TRY TO SPEAK WITH PT ABOUT GETTING LABS DRAWN TONIGHT.SAFETY MEASURES IN PLACE: BED IN LOWEST LOCKED POSITION, SIDE RAILS UP X 2, CALL LIGHT WITHIN REACH. WILL CONTINUE TO MONITOR. Addendum: 12/25/21 at 2203 by GELACIO MATAMOROS RN OPENING NOTES
[2021-12-25] MEDS ORDERED: EPOETIN ALFA (10,000 UNIT) 10,000 UNIT/ML VIAL IV ONE (20:30)
[2021-12-25] MEDS: MORPHINE SULFATE INJ 2 MG/ML DISP.SYRIN IV PRN (20:59)
[2021-12-25] MEDS: SENNOSIDES 8.6 MG TABLET PO SCH (21:05)
[2021-12-25] MEDS: ATORVASTATIN 40 MG TABLET PO SCH (21:05)
--- NOTE | 2021-12-25 22:04 | NUR ---
MS RN NOTES TRIED SPEAKING TO PT REGARDING BLOOD DRAW AND EPOTIN BEN INJECTION PT IS REFUSING X3 RISK AND BENEFITS EXPLAINED X3 PT STATED " IM TIERED OF PEOPLE POKING ME WITH NEEDLES I DON'T WANT THAT ANYMORE IM HAVING DIALYSIS TOMORROW ANYWAY THEY CAN GIVE ME THE MEDICATION AND DRAW MY LABS THEN" WILL CONTINUE TO MONITOR PT.
[2021-12-26] MEDS: MEROPENEM 500 MG in IV NS 0.9% 50 ML IV SCH ×2 (00:11→12:17)
[2021-12-26] MEDS: HYDROCODONE/APAP 10/325MG TABLET PO PRN (00:19)
--- NOTE | 2021-12-26 00:21 | NUR ---
MS RN NOTES PRN NORCO GIVEN FOR 01/07 PAIN PT TEMPERATURE RECHECKED 98.7 AT THIS TIME.
--- NOTE | 2021-12-26 01:02 | NUR ---
MS RN NOTES PT REPORTED STOMACH DISCOMFORT AND GAS PRN MED GIVEN TOLERATED WELL.
[2021-12-26 02:00] VITALS: BP 134/58
[2021-12-26] MEDS: BLOOD SUGAR DIAGNOSTIC 1 EACH STRIP VI SCH ×4 (06:37→22:15)
[2021-12-26] MEDS: INSULIN REGULAR, HUMAN 100 UNIT/ML 3 ML VIAL SQ PRN ×2 (06:37→12:15)
--- NOTE | 2021-12-26 06:57 | NUR ---
MS RN CLOSING NOTES PATIENT LAYING IN BED, A/O X 4. NO S/S RESPIRATORY DISTRESS AND TOLERATING WELL ON ROOM AIR. PAIN FOR THE ENTIRE SHIFT WAS WELL CONTROLLED. SHANTHI #18G SL CLEAN, INTACT, AND FLUSHING WELL. HILARIO AV FISTULA PRESENT WITH THRILL AND BRUIT NOTED. R FOOT DRESSING C/D/I. ABLE TO MAKE NEEDS KNOWN AND MET. PATIENT HAD BEEN REFUSING NURSING CARE WELL LAB DRAWS X3 WILL TRIED TO HAVE LABS DRAWN THIS MORNING PT REFUSED BUT AFTER DISCUSSION PT AGGERES TO HAVE SONG PLUGGER TRY ONE TIME INFORMED TECH TO PLEASE COME BACK AND TRY ONE TIME.SAFETY MEASURES IN PLACE: BED IN LOWEST LOCKED POSITION, SIDE RAILS UP X 2, CALL LIGHT WITHIN REACH. WILL ENDORSE CRAE TO DAY SHIFT NURSE.
[2021-12-26 07:25] LABS: BASOPHILS % (AUTO) 0.7 % (0.0-2.0); EOSINOPHILS % (AUTO) 3.8 % (0.0-6.0); HEMATOCRIT 24 % (39-51); HEMOGLOBIN 7.9 g/dL (13.5-17.5); LYMPHOCYTES # (AUTO) 1.5 K/uL (0.8-4.8); LYMPHOCYTES % (AUTO) 22.5 % (20.0-44.0); MEAN CORPUSCULAR HGB CONC 33 g/dl (31.0-36.0); MEAN CORPUSCULAR VOLUME 89 fL (80-96); MONOCYTES # (AUTO) 0.8 K/uL (0.1-1.30); NEUTROPHILS # (AUTO) 4.2 K/uL (1.8-8.9); PLATELET COUNT (AUTO) 162 K/uL (150-450); RED BLOOD CELL COUNT(AUTO) 2.69 MIL/uL (4.5-6.0); WHITE BLOOD COUNT (AUTO) 6.8 K/uL (4.3-11.0)
[2021-12-26 07:30] LABS: CALCIUM, SERUM 9.1 mg/dL (8.5-10.1); POTASSIUM 5.3 mmol/L (3.5-5.1)
[2021-12-26 07:38] LABS: IRON, SERUM 43 ug/dl (50-175); TOTAL IRON BINDING CAPACITY 138 ug/dl (250-450)
[2021-12-26] MEDS: LEVOTHYROXINE SODIUM 25 MCG TABLET PO SCH (07:46)
[2021-12-26] MEDS: PANTOPRAZOLE 40 MG TABLET.DR PO SCH (07:46)
[2021-12-26 08:00] VITALS: BP 133/45
[2021-12-26] MEDS: LINEZOLID 600 MG TABLET PO SCH ×2 (08:56→21:22)
[2021-12-26] MEDS: ZINC SULFATE 220 MG CAPSULE PO SCH (08:56)
[2021-12-26] MEDS: ASCORBIC ACID 500 MG TABLET PO SCH (08:56)
[2021-12-26] MEDS: VIT B CMPLX 3/FA/VIT C/BIOTIN 1 TAB TABLET PO SCH (08:56)
[2021-12-26] MEDS: DOCUSATE SODIUM 100 MG CAPSULE PO SCH ×2 (08:57→16:45)
[2021-12-26] MEDS: MULTIVIT W/MINERALS 1 TAB TABLET PO SCH (08:57)
[2021-12-26] MEDS: CALCIUM ACETATE 667 MG CAP/TAB PO SCH ×3 (08:57→17:43)
[2021-12-26] MEDS: PROSOURCE / PROSTAT (PYXIS) 30 ML UDC PO SCH (08:57)
[2021-12-26] MEDS: SEVELAMER CARBONATE 800 MG TABLET PO SCH ×3 (08:57→17:43)
[2021-12-26] MEDS: ISOSORBIDE DINITRATE (10MG) 10 MG TABLET PO SCH ×3 (09:00→16:48)
[2021-12-26] MEDS: CARVEDILOL 12.5 MG TABLET PO SCH ×2 (09:00→21:22)
--- NOTE | 2021-12-26 09:00 | NUR ---
MS RN NOTES BLOOD PRESSURE MEDICATION HELD, PATIENT WILL HAVE DIALYSIS TODAY
[2021-12-26] MEDS: MORPHINE SULFATE INJ 2 MG/ML DISP.SYRIN IV PRN (10:37)
--- NOTE | 2021-12-26 13:00 | NUR ---
MS RN NOTES BLOOD PRESSURE MEDICATION HELD, PATIENT WILL HAVE DIALYSIS TODAY
[2021-12-26 16:16] VITALS: BP 142/61
--- NOTE | 2021-12-26 17:00 | NUR ---
MS RN NOTES DIALYSIS DONE PATIENT TOLERATED WELL. 0 ML OUT PER DIALYSIS NURSE
--- NOTE | 2021-12-26 17:43 | NUR ---
MS RN NOTES BLOOD GLUCOSE 108 HELD INSULIN PER SLIDING SCALE
--- NOTE | 2021-12-26 19:00 | NUR ---
MS RN NOTES PATIENT IN BED, ALERT ORIENTED X 4, NO ACUTE DISTRESS NOTED.BREATHING UNLABORED.HILARIO DIALYSIS ACCESS INTACT, NO REDNESS, NO BLEEDING , NO REDNESS NOTED. SAFETY MEASURES IN PLACE, CALL LIGHT WITHIN REACH. RIGHT AND LEFT FOOT DRESSING CLEAN DRY AND INTACT. NEEDS ATTENDED AND ANTICIPATED. WILL ENDORSE TO NIGHT NURSE FOR CONTINUITY OF CARE
--- NOTE | 2021-12-26 19:12 | NUR ---
MS RN NOTES PATIENT IN BED, ALERT ORIENTED X 4, NO ACUTE DISTRESS NOTED.BREATHING UNLABORED.HILARIO DIALYSIS ACCESS INTACT, NO REDNESS, NO BLEEDING , NO REDNESS NOTED. SAFETY MEASURES IN PLACE, CALL LIGHT WITHIN REACH. RIGHT AND LEFT FOOT DRESSING CLEAN DRY AND INTACT. NEEDS ATTENDED AND ANTICIPATED. WILL CONTINUE TO MONITOR.
[2021-12-26 20:00] VITALS: BP 132/58
[2021-12-26] MEDS: ATORVASTATIN 40 MG TABLET PO SCH (21:22)
[2021-12-26] MEDS: ACETAMINOPHEN 325 MG TABLET PO PRN (21:22)
[2021-12-26] MEDS: SENNOSIDES 8.6 MG TABLET PO SCH (22:00)
[2021-12-26] MEDS: *INSULIN REGULAR(HUMULIN R)HUM 100 UNIT/ML VIAL SQ PRN (22:16)
[2021-12-27] MEDS: MEROPENEM 500 MG in IV NS 0.9% 50 ML IV SCH ×2 (00:34→12:13)
--- NOTE | 2021-12-27 06:51 | NUR ---
MS RN NOTES PATIENT IN BED, ALERT ORIENTED X 4, NO ACUTE DISTRESS NOTED.BREATHING UNLABORED.HILARIO DIALYSIS ACCESS INTACT, NO REDNESS, NO BLEEDING , NO REDNESS NOTED. SAFETY MEASURES IN PLACE, CALL LIGHT WITHIN REACH. RIGHT AND LEFT FOOT DRESSING CLEAN DRY AND INTACT. NEEDS ATTENDED AND ANTICIPATED. WILL ENDORSE CRAE TO DAY SHIFT NURSE FOR JUSTIN
[2021-12-27] MEDS: BLOOD SUGAR DIAGNOSTIC 1 EACH STRIP VI SCH ×4 (06:55→22:07)
[2021-12-27] MEDS: INSULIN REGULAR, HUMAN 100 UNIT/ML 3 ML VIAL SQ PRN (06:55)
--- NOTE | 2021-12-27 07:49 | NUR ---
MS RN OPENING NOTE Patient in bed, awake. A/Ox 4, able to make needs known. On room air, breathing evenly and unlabored. No SOB or s/s of distress noted. IV access on SHANTHI midline, intact and patent. HILARIO AV fistula noted. Dressings on bilateral feet c/d/i. Safety precautions in place: bed in low, locked position; siderails up x 2; call light within reach. Will continue to monitor.
[2021-12-27 08:00] VITALS: BP 137/39
[2021-12-27] MEDS: VIT B CMPLX 3/FA/VIT C/BIOTIN 1 TAB TABLET PO SCH (08:38)
[2021-12-27] MEDS: LEVOTHYROXINE SODIUM 25 MCG TABLET PO SCH (08:41)
[2021-12-27] MEDS: ZINC SULFATE 220 MG CAPSULE PO SCH (08:41)
[2021-12-27] MEDS: PANTOPRAZOLE 40 MG TABLET.DR PO SCH (08:41)
[2021-12-27] MEDS: MULTIVIT W/MINERALS 1 TAB TABLET PO SCH (08:41)
[2021-12-27] MEDS: CALCIUM ACETATE 667 MG CAP/TAB PO SCH ×3 (08:42→17:10)
[2021-12-27] MEDS: SEVELAMER CARBONATE 800 MG TABLET PO SCH ×3 (08:42→17:08)
[2021-12-27] MEDS: DOCUSATE SODIUM 100 MG CAPSULE PO SCH ×2 (08:42→17:08)
[2021-12-27] MEDS: ASCORBIC ACID 500 MG TABLET PO SCH (08:42)
[2021-12-27] MEDS: LINEZOLID 600 MG TABLET PO SCH ×2 (08:42→21:00)
[2021-12-27] MEDS: ISOSORBIDE DINITRATE (10MG) 10 MG TABLET PO SCH ×4 (08:43→17:09)
[2021-12-27] MEDS: CARVEDILOL 12.5 MG TABLET PO SCH ×2 (08:43→21:00)
[2021-12-27] MEDS: PROSOURCE / PROSTAT (PYXIS) 30 ML UDC PO SCH ×2 (08:44→08:48)
[2021-12-27] MEDS: MORPHINE SULFATE INJ 2 MG/ML DISP.SYRIN IV PRN ×2 (12:21→16:23)
--- NOTE | 2021-12-27 12:21 | NUR ---
RN NOTES PATIENT COMPLAINTS OF PAIN AND MORPHINE IV WAS GIVEN
[2021-12-27] MEDS: HYDROCODONE/APAP 10/325MG TABLET PO PRN ×2 (13:59→21:27)
--- NOTE | 2021-12-27 14:07 | NUR ---
RN NOTE Dr. Palmer attempted to do dressing change, patient requested for pain medication; not due for another Morphine, took out Highmount. Patient didn't want to take Highmount, says it's not as effective as Morphine. Dr. Palmer instructed to given Morphine when due and then do wound care after. Highmount medication returned to [facility].
[2021-12-27 16:06] VITALS: BP 117/31
--- NOTE | 2021-12-27 16:25 | NUR ---
RN NOTE Patient requested to get Morphine before wound care, Morphine not due yet. Asked Dr. Will if we can given Morphine ahead of due time and he said okay. Will given Morphine for wound care.
--- NOTE | 2021-12-27 16:29 | NUR ---
RN NOTES PATIENT COMPLAINING OF PAIN ON RIGHT FOOT 8/10 PAIN SCALE ASKING FOR MORPHINE PRN MORPHINE GIVEN
--- NOTE | 2021-12-27 17:00 | NUR ---
RN NOTE Patient refusing wound care, stating he only wants the doctor to do it. Explained the risks of not doing wound care today, [facility]. Patient still refusing.
--- NOTE | 2021-12-27 18:56 | NUR ---
MS RN CLOSING NOTE Patient in bed, asleep. A/Ox 4, able to make needs known. Stable on room air, breathing evenly and unlabored. No SOB or s/s of distress noted. IV access on SHANTHI midline, intact and patent. HILARIO AV fistula noted. All needs attended to. Due meds given. Safety precautions maintained: bed in low, locked position; siderails up x 2; call light within reach. Will endorse to hotel night auditor nurse for JUSTIN.
--- NOTE | 2021-12-27 19:35 | NUR ---
MS RN NOTES RECEIVED ON BED SLEEPING,AROUSABLE TO VERBAL STIMULI,SPEAK MALTESE,BREATHING EASY,NO SOB,WITH OSTOMY BAG IN PLACE,WITH RIGHY UPPER ARM SALINE LOCK INTACT AND PATENT.HILARIO AV FISTULA FOR HD ACCESS.S/P RIGHT TRANSMETATASRAL AMPUTATION ON 12/25,DRESSING INTACT AND DRY.,CALL LIGHT IN REACH,NEEDS ANTICIPATED.
[2021-12-27 20:00] VITALS: BP 130/49
[2021-12-27] MEDS: ATORVASTATIN 40 MG TABLET PO SCH (21:26)
--- NOTE | 2021-12-27 21:27 | NUR ---
MS RN NOTES PAIN MANAGEMENT C/O RIGHT FOOT PAIN 7/10 ON PAIN SCALE,NORCO 10/325, 1 TAB PO GIVEN ORDERED
[2021-12-27] MEDS: SENNOSIDES 8.6 MG TABLET PO SCH (21:30)
--- NOTE | 2021-12-27 22:00 | NUR ---
MS RN NOTES ACCU-CHECK BLOOD SUGAR CHECK 83,NO INSULIN COVERAGE,APPLE JUICE PROVIDED PER PATIENT REQUEST.
[2021-12-28] MEDS: MEROPENEM 500 MG in IV NS 0.9% 50 ML IV SCH ×2 (00:25→13:25)
--- NOTE | 2021-12-28 05:30 | NUR ---
MS RN NOTES ACCU-CHECK BLOOD SUGAR CHECK 109,NO INSULIN COVERAGE.
[2021-12-28] MEDS: BLOOD SUGAR DIAGNOSTIC 1 EACH STRIP VI SCH ×2 (05:33→11:50)
--- NOTE | 2021-12-28 06:57 | NUR ---
MS RN NOTES FAIRLY RESTED AT NIGHT,NORCO EFFECTIVE FOR PAIN MANAGEMENT.FOR HEMODIALYSIS TODAY WITH ORDER.C/O SLIGHT SHORTNESS OF BREATH.O2 SAT 99%.BLOOD PRESSURE WITH IN NORMAL LIMITS.NO DISTRESS.ENDORSED TO DAY NURSE FOR JUSTIN.
--- NOTE | 2021-12-28 07:35 | NUR ---
MS RN OPENING NOTES : RECEIVED ON BED AWAKE AND VERBALLY RESPONSIVE , FRISIAN SPEAKING , NO SOB OR DISTRESS NOTED , NO C/O OF PAIN AND DISCOMFORT , SHANTHI #18 ML INTACT AND PATENT , HILARIO AV FISTULA , FOR DIALYSIS TODAY , BED IN LOWEST POSITION , CALL LIGHT WITHIN REACH AND WILL FOLLOW WITH MD REGARDING DRESSING CHANGE ON BILATERAL FEET PT PREFFERED MD TO CHANGE THE DRESSING .
[2021-12-28] MEDS: ISOSORBIDE DINITRATE (10MG) 10 MG TABLET PO SCH ×2 (09:00→13:00)
[2021-12-28] MEDS: CARVEDILOL 12.5 MG TABLET PO SCH (09:00)
[2021-12-28] MEDS ORDERED: ALBUMIN 25% 25 GM in PREMIX 1 EA IV PRN (09:30)
[2021-12-28] MEDS ORDERED: ALBUMIN 25% 50 GM in PREMIX 1 EA IV PRN (09:30)
[2021-12-28] MEDS: SEVELAMER CARBONATE 800 MG TABLET PO SCH ×2 (09:57→13:16)
[2021-12-28] MEDS: PANTOPRAZOLE 40 MG TABLET.DR PO SCH (09:57)
[2021-12-28] MEDS: ASCORBIC ACID 500 MG TABLET PO SCH (09:58)
[2021-12-28] MEDS: CALCIUM ACETATE 667 MG CAP/TAB PO SCH ×2 (09:58→13:16)
[2021-12-28] MEDS: LINEZOLID 600 MG TABLET PO SCH (09:58)
[2021-12-28] MEDS: LEVOTHYROXINE SODIUM 25 MCG TABLET PO SCH (09:58)
[2021-12-28] MEDS: ZINC SULFATE 220 MG CAPSULE PO SCH (09:58)
[2021-12-28] MEDS: VIT B CMPLX 3/FA/VIT C/BIOTIN 1 TAB TABLET PO SCH (09:58)
[2021-12-28] MEDS: MULTIVIT W/MINERALS 1 TAB TABLET PO SCH (09:58)
[2021-12-28] MEDS: DOCUSATE SODIUM 100 MG CAPSULE PO SCH (09:59)
[2021-12-28 10:00] LABS: CALCIUM, SERUM 9.3 mg/dL (8.5-10.1); POTASSIUM 5.9 mmol/L (3.5-5.1)
[2021-12-28] MEDS: PROSOURCE / PROSTAT (PYXIS) 30 ML UDC PO SCH (10:03)
[2021-12-28 10:30] LABS: CREATININE 10.6 mg/dL (0.6-1.3)
[2021-12-28 10:52] LABS: BASOPHILS # (AUTO) 0.1 K/uL (0.0-0.2); BASOPHILS % (AUTO) 0.7 % (0.0-2.0); EOSINOPHILS % (AUTO) 1.3 % (0.0-6.0); HEMATOCRIT 25 % (39-51); HEMOGLOBIN 8.3 g/dL (13.5-17.5); LYMPHOCYTES # (AUTO) 1.3 K/uL (0.8-4.8); LYMPHOCYTES % (AUTO) 18.2 % (20.0-44.0); MEAN CORPUSCULAR HGB CONC 33 g/dl (31.0-36.0); MEAN CORPUSCULAR VOLUME 87 fL (80-96); MONOCYTES # (AUTO) 0.3 K/uL (0.1-1.30); MONOCYTES % (AUTO) 4.5 % (2.0-12.0); NEUTROPHILS # (AUTO) 5.4 K/uL (1.8-8.9); NEUTROPHILS % (AUTO) 75.3 % (43.0-81.0); PLATELET COUNT (AUTO) 151 K/uL (150-450); RED BLOOD CELL COUNT(AUTO) 2.84 MIL/uL (4.5-6.0); WHITE BLOOD COUNT (AUTO) 7.1 K/uL (4.3-11.0)
[2021-12-28] MEDS ORDERED: GLUCERNA SHAKE 237 ML CAN PO SCH (12:00)
[2021-12-28] MEDS: MORPHINE SULFATE INJ 2 MG/ML DISP.SYRIN IV PRN ×2 (12:55→14:02)
[2021-12-28 13:00] VITALS: BP 143/37
--- NOTE | 2021-12-28 16:00 | NUR ---
DISCHARGE NOTE Received order for discharge. Patient is A/O x 4, able to make needs known. Stable on room air, breathing evenly and unlabored. No SOB or s/s of distress noted. Report given to RAAD Saini of [facility]. Wound care done on Left foot. Dr. Palmer did wound care on Right foot. Photos of wounds taken and placed in chart. Patient denies any pain or discomfort at this time. All belongings accounted for, belonging sheet signed. Midline on SHANTHI not removed, patient will continue with IV antibiotics at the facility. Patient left in stable condition via ambulance with 3 facilities officer present.
== END 2021-12-28 16:45 | DRG 239 ==
LOC: ER 20:42 → TELE 12-15 00:12 → MED 12-15 00:50
PROVIDERS: ATTEND Internal Medicine
PROC: 05HB33Z Insertion of Infusion Device into Right Basilic Vein, Percutaneous Approach (ICD-10-PCS; 2021-12-16)
PROC: 5A1D70Z Performance of Urinary Filtration, Intermittent, Less than 6 Hours Per Day (ICD-10-PCS; 2021-12-16)
PROC: B41DYZZ Fluoroscopy of Aorta and Bilateral Lower Extremity Arteries using Other Contrast (ICD-10-PCS; 2021-12-18)
PROC: 0Y6N0ZB Detachment at Left Foot, Partial 2nd Ray, Open Approach (ICD-10-PCS; principal; 2021-12-22)
PROC: 0Y6N0ZC Detachment at Left Foot, Partial 3rd Ray, Open Approach (ICD-10-PCS; 2021-12-22)
PROC: 0Y6N0ZD Detachment at Left Foot, Partial 4th Ray, Open Approach (ICD-10-PCS; 2021-12-22)
PROC: 0Y6N0ZF Detachment at Left Foot, Partial 5th Ray, Open Approach (ICD-10-PCS; 2021-12-22)
PROC: 0L8N0ZZ Division of Right Lower Leg Tendon, Open Approach (ICD-10-PCS; 2021-12-22)
DX: E11.52 Type 2 diabetes mellitus with diabetic peripheral angiopathy with gangrene (principal); N18.6 End stage renal disease; M86.8X7 Other osteomyelitis, ankle and foot; I12.0 Hypertensive chronic kidney disease with stage 5 chronic kidney disease or end stage renal disease; L02.611 Cutaneous abscess of right foot; E22.2 Syndrome of inappropriate secretion of antidiuretic hormone; I70.262 Atherosclerosis of native arteries of extremities with gangrene, left leg; E11.69 Type 2 diabetes mellitus with other specified complication; E11.22 Type 2 diabetes mellitus with diabetic chronic kidney disease; Z99.2 Dependence on renal dialysis; Z20.822 Contact with and (suspected) exposure to COVID-19; E11.621 Type 2 diabetes mellitus with foot ulcer; E11.40 Type 2 diabetes mellitus with diabetic neuropathy, unspecified; E11.65 Type 2 diabetes mellitus with hyperglycemia; Z88.1 Allergy status to other antibiotic agents; Z88.2 Allergy status to sulfonamides; Z79.84 Long term (current) use of oral hypoglycemic drugs; Z79.01 Long term (current) use of anticoagulants; Z79.899 Other long term (current) drug therapy; Z87.891 Personal history of nicotine dependence; Z91.19 Patient's noncompliance with other medical treatment and regimen; M89.8X9 Other specified disorders of bone, unspecified site; I48.91 Unspecified atrial fibrillation; E78.5 Hyperlipidemia, unspecified; I25.10 Atherosclerotic heart disease of native coronary artery without angina pectoris; F41.9 Anxiety disorder, unspecified; F32.A Depression, unspecified; G47.9 Sleep disorder, unspecified; L97.519 Non-pressure chronic ulcer of other part of right foot with unspecified severity; D63.8 Anemia in other chronic diseases classified elsewhere; E87.5 Hyperkalemia; Z79.02 Long term (current) use of antithrombotics/antiplatelets; Z82.49 Family history of ischemic heart disease and other diseases of the circulatory system; Z83.3 Family history of diabetes mellitus; Z89.412 Acquired absence of left great toe; Z89.411 Acquired absence of right great toe; Z87.19 Personal history of other diseases of the digestive system; L97.529 Non-pressure chronic ulcer of other part of left foot with unspecified severity; B96.20 Unspecified Escherichia coli [E. coli] as the cause of diseases classified elsewhere; B95.61 Methicillin susceptible Staphylococcus aureus infection as the cause of diseases classified elsewhere
CPT/HCPCS: 36410; 36415; 71045-TC; 73630-TC; 73660-TC; 73718-TC; 75625; 80048-TC; 80053-TC; 80061-TC; 80076-TC; 80202-TC; 82272-TC; 82607-TC; 82728-TC; 82962-TC; 83540-TC; 83605-TC; 83690-TC; 83735-TC; 84100-TC; 84132-TC; 85025-TC; 85610-TC; 85652-TC; 85730-TC; 86140-TC; 86706; 86803; 87040-TC; 87070-TC; 87081-TC; 87186-TC; 87340; 87806; 90935-TC; 97116-TC; 97530-TC; A4216; A6253; A6403; A6407; C1769; C1887; C1894; C9803; G0378; G0500; J0692; J0696; J0885; J1644; J1815; J2185; J2250; J2270; J2704; J3010; J3370; J3490; J7030; J7040; J7050; J7060; P9047; Q9967

== ENCOUNTER 2022-01-15 19:31 | Emergency (ER) | payer OTHER ==
[~2022-01-15] VITALS: Ht 170.2 cm; Wt 77.1 kg
--- NOTE | 2022-01-15 19:53 | NUR ---
ALVIN FROM SNF FOR RLQ ABD PAIN X 3 DAYS. PATIENT ALERT AND ORIENTED X2 SINHALA SPEAKING ONLY. AMBULATORYW ITH ASSISTANCE BUT BROUGHT IN BY STRETCHER. IN BED 10 AWAITING MD GARCIA.
--- NOTE | 2022-01-15 20:18 | NUR ---
PT GOING TO CT
[2022-01-15] MEDS ORDERED: IV NS 0.9% 500 ML BAG IV ONE (20:30)
[2022-01-15 20:59] LABS: BASOPHILS % (AUTO) 0.3 % (0.0-2.0); HEMATOCRIT 23 % (39-51); HEMOGLOBIN 7.3 g/dL (13.5-17.5); MEAN CORPUSCULAR HGB CONC 32 g/dl (31.0-36.0); MEAN CORPUSCULAR VOLUME 93 fL (80-96); MONOCYTES # (AUTO) 0.8 K/uL (0.1-1.30); MONOCYTES % (AUTO) 6.1 % (2.0-12.0); NEUTROPHILS % (AUTO) 85.6 % (43.0-81.0); PLATELET COUNT (AUTO) 177 K/uL (150-450); RED BLOOD CELL COUNT(AUTO) 2.47 MIL/uL (4.5-6.0); WHITE BLOOD COUNT (AUTO) 12.8 K/uL (4.3-11.0)
[2022-01-15 21:23] LABS: LYMPHOCYTES % (MANUAL) 11 % (16-48); MONOCYTES % (MANUAL) 2 % (0-11.0); NEUTROPHILS % (MANUAL) 87 (42-76)
--- NOTE | 2022-01-15 21:38 | NUR ---
COVID SWAB COLLECTED SENT TO LAB
--- NOTE | 2022-01-15 22:15 | NUR ---
LARGE BOWEL MOVMENT PASSED PATIENT CHANGED AND WHIPED CLEAN.
[2022-01-15 22:18] LABS: ALANINE AMINOTRANSFERASE 20 U/L (12-78); ALBUMIN 3.5 g/dL (3.4-5.0); ALKALINE PHOSPHATASE 124 U/L (46-116); ASPARTATE AMINOTRANSFERASE 29 U/L (15-37); BILIRUBIN,DIRECT 0.3 mg/dL (0.0-0.2); BILIRUBIN,TOTAL 0.8 mg/dL (0.2-1.0); CALCIUM, SERUM 9.2 mg/dL (8.5-10.1); CARBON DIOXIDE 25 mmol/L (21-32); CHLORIDE 95 mmol/L (98-107); GLUCOSE 197 mg/dL (74-106); LIPASE 109 U/L (73-393); POTASSIUM 4.3 mmol/L (3.5-5.1); SODIUM SERUM 138 mmol/L (136-145); UREA NITROGEN, BLOOD 65 mg/dL (7-18)
--- NOTE | 2022-01-15 22:19 | NUR ---
[facility] CALLED FOR BLS TRANSPORT. ETA 30-45 MINUTES.
[2022-01-15 22:32] LABS: CREATININE 9.6 mg/dL (0.6-1.3)
--- NOTE | 2022-01-15 22:32 | NUR ---
CREA 9.69
--- NOTE | 2022-01-15 22:34 | NUR ---
CALLED [facility] GAVE REPORT TO JANI
[2022-01-15] MEDS ORDERED: BISA-79 PO (22:43)
--- NOTE | 2022-01-15 23:09 | NUR ---
REPORT GIVEN TO EMS AT BEDSIDE
[2022-01-15 23:16] VITALS: BP 140/70
--- NOTE | 2022-01-15 23:16 | NUR ---
PATIENT BEING TRANSFERRED BACK TO FACILITY IN STABLE CONDITION.
== END 2022-01-15 23:16 ==
LOC: ER 19:33
DX: K59.00 Constipation, unspecified (principal); E11.22 Type 2 diabetes mellitus with diabetic chronic kidney disease; I12.0 Hypertensive chronic kidney disease with stage 5 chronic kidney disease or end stage renal disease; N18.6 End stage renal disease; Z99.2 Dependence on renal dialysis; E11.51 Type 2 diabetes mellitus with diabetic peripheral angiopathy without gangrene; I48.91 Unspecified atrial fibrillation; Z79.84 Long term (current) use of oral hypoglycemic drugs; Z88.0 Allergy status to penicillin; Z88.2 Allergy status to sulfonamides; Z93.3 Colostomy status; J90 Pleural effusion, not elsewhere classified; Z79.899 Other long term (current) drug therapy; Z89.412 Acquired absence of left great toe; Z89.411 Acquired absence of right great toe; Z79.01 Long term (current) use of anticoagulants; Z20.822 Contact with and (suspected) exposure to COVID-19; R94.31 Abnormal electrocardiogram [ECG] [EKG]
CPT/HCPCS: 36415; 71045-TC; 80048-TC; 80076-TC; 83690-TC; 84484-TC; 85025-TC; C9803